=== PATIENT | male | born 1970 | race American Indian/Alaskan Native ===

== ENCOUNTER 2017-04-21 15:31 | Inpatient (IN) | payer MEDICARE, MEDICAID ==
[2017-04-21] MEDS ORDERED: Vancomycin 1gm in NS 250ml 1 GM/250 ML BAG IVPB STA (15:52)
--- NOTE | 2017-04-21 15:52 | ED PDOC ---
Arrival/HPI - General Time Seen by Provider: 04/21/17 15:32 Historian: Custodial - History of Present Illness Narrative History of Present Illness (Text): 04/21/17 15:47 A 46 year old male, whose past medical history includes, diabetes, hypertension , asthma, COPD, lupus and depression, brought into the emergency department by EMS from [facility] for altered mental status. As per shelter report, patient had a fever of 102.7, 131 pulse and 75-86% oxygen saturation. Patient is lethargic on exam. He responds to verbal stimuli and answers yes/no to limited questions. Patient with generalized pain, shortness of breath and cough. HPI and ROS limited. PMD: Dr. Hester Time/Duration: Prior to Arrival Context: Home (shelter) Past Medical History - Provider Review Nursing Documentation Reviewed: Yes - Infectious Disease Hx of Infectious Diseases: None - Tetanus Immunization Tetanus Immunization: Unknown - Past Medical History Past Medical History: Unable to Obtain - Cardiac Hx Cardiac Disorders: No - Pulmonary Hx Asthma: Yes - Neurological Other/Comment: SLE - HEENT Hx HEENT Disorder: No - Renal Hx Renal Disorder: No - Endocrine/Metabolic Hx Diabetes Insipidus: Yes Other/Comment: lupus - Hematological/Oncological Hx Blood Disorders: No Hx Sickle Cell Disease: No - Integumentary Hx Dermatological Disorder: No - Musculoskeletal/Rheumatological Hx Falls: No - Gastrointestinal Hx Gastrointestinal Disorders: No - Genitourinary/Gynecological Hx Genitourinary Disorders: No - Psychiatric Hx Depression: Yes Hx Substance Use: Yes Other/Comment: drug abuse - Past Surgical History Past Surgical History: Unable to Obtain - Surgical History Hx Appendectomy: No Hx Cholecystectomy: No Hx Coronary Stent: No - Anesthesia Hx Anesthesia Reactions: No Hx Malignant Hyperthermia: No - Suicidal Assessment Feels Threatened In Home Enviroment: No Family/Social History - Physician Review Nursing Documentation Reviewed: Yes Family/Social History: No Known Family HX Smoking Status: Former Smoker Hx Alcohol Use: Yes Hx Substance Use: Yes Allergies/Home Meds Allergies/Adverse Reactions: Allergies penicillin V Adverse Reaction (Verified 04/21/17 15:51) ANAPHYLAXIS Home Medications: Home Meds Medication Instructions Recorded Confirmed Advair Diskus 500/50 1 puff IH BID 07/24/14 07/24/14 Alprazolam [Xanax] 0.25 mg PO HS PRN 07/24/14 07/24/14 Celecoxib [Celebrex] 400 mg PO BID 07/24/14 07/24/14 Enoxaparin [Lovenox] 40 mg IJ DAILY 07/24/14 07/24/14 Magnesium Hydroxide [Milk Of 30 ml PO DAILY PRN 07/24/14 07/24/14 Magnesia] Melatonin 5 mg PO HS 07/24/14 07/24/14 Methadone 90 mg PO DAILY 07/24/14 07/24/14 Omeprazole [PrilOSEC] 40 mg PO DAILY 07/24/14 07/24/14 Ondansetron ODT [Zofran ODT] 4 mg PO Q6 PRN 07/24/14 07/24/14 Polyethylene Glycol 3350 [Miralax] 17 gm PO HS 07/24/14 07/24/14 amLODIPine [Norvasc] 10 mg PO DAILY 07/24/14 07/24/14 Aztreonam 1 Gm in NS 100mL 1 gm IVPB Q8 07/30/14 07/30/14 [Azactam 1 gm] Review of Systems - Review of Systems Systems not reviewed;Unavailable: Altered Mental Status Physical Exam Vital Signs Reviewed: Yes Vital Signs Temp Pulse Resp BP Pulse Ox 04/21/17 18:04 100.9 F H 110 H 16 111/65 97 04/21/17 16:49 103 F H 04/21/17 16:29 112 H 18 109/65 97 04/21/17 15:57 103 F H 116 H 20 112/76 89 L Temperature: Febrile Blood Pressure: Normal Pulse: Tachycardic Respiratory Rate: Normal Appearance: Positive for: Ill-Appearing Mental Status: Positive for: Lethargic, other (Drowsy but arousbale to verbal stimuli. Able to answer limited questions.) - Systems Exam Head: Present: Atraumatic, Normocephalic Pupils: Present: PERRL Extroacular Muscles: Present: EOMI Conjunctiva: Present: Normal Neck: Present: Normal Range of Motion Respiratory/Chest: Present: Good Air Exchange, Rhonchi (Right lower lung field) , Tachypneic. No: Respiratory Distress, Accessory Muscle Use Cardiovascular: Present: Normal S1, S2, Tachycardic. No: Murmurs Abdomen: Present: Normal Bowel Sounds. No: Tenderness, Distention, Peritoneal Signs Upper Extremity: Present: Normal Inspection. No: Cyanosis, Edema Lower Extremity: Present: Normal Inspection. No: Edema Neurological: Present: CN II-XII Intact, Motor Func Grossly Intact, Normal Sensory Function Skin: Present: Warm, Dry, Normal Color. No: Rashes Psychiatric: Present: Lethargic, Other (Drowsy but arousbale to verbal stimuli. Able to answer limited questions.) Medical Decision Making ED Course and Treatment: 04/21/17 15:47 Impression: A 46 year old male brought in for altered mental status Differential Diagnosis included but are not limited to: Altered Mental Status, Respiratory Distress due to PNA/COPD Plan: -- Chest xray -- EKG -- Labs -- Blood and Urine culture -- Urinalysis -- Rapid flu -- Duoneb, Dextrose, Solumedrol, Levaquin, Meropenum and Vancomycin -- Reassess and disposition Progress Notes: EKG shows sinus tachycardia at [address]-segment elevations. Interpreted by me. Report Date : 04/21/2017 16:30:07 Procedure: Chest xray Dictator : Romeo Smith MD IMPRESSION: Extensive right lower lobe infiltrate/mass/ consolidation. Findings in a similar anatomic distribution (on the prior study a smaller more discrete) identified previously. This either represents a chronic or recurrent process. 04/21/17 16:50 Digital Composer paged. Awaiting call back. 04/21/17 16:[address] Plata, states he evaluate patient at bedside. 04/21/17 17:[address] Plata, who agrees with BiPAP and states to admit to the ICU. Requests head CT and he will f/u results. 04/21/17 17:[address] Hester, who agrees with plan. Requests ID Dr. Moffett and respiratory Dr. Guillen for consult. - Critical Care Critical Care Minutes: 60 minutes - Lab Interpretations Lab Results: 04/21/17 16:05 04/21/17 16:05 Lab Results 04/21/17 16:05: Sodium 143, Chloride 102, Potassium 4.2, Carbon Dioxide 34 H, Anion Gap 12, BUN 24 H, Creatinine 1.2, Est GFR ( Amer) > 60, Est GFR ( Non-Af Amer) > 60, Random Glucose 75, Calcium 8.9, Phosphorus 2.9, Magnesium 1.6 L, Total Bilirubin 0.5, AST 31, ALT 35, Alkaline Phosphatase 53, Troponin I < 0.01, NT-Pro-B Natriuret Pep 81.4, Total Protein 7.6, Albumin 3.7, Globulin 3.9, Albumin/Globulin Ratio 1.0 L 04/21/17 16:05: pO2 78 H, VBG pH 7.31 L, VBG pCO2 70.0 H*, VBG HCO3 35.2 H, VBG Total CO2 37.3 H, VBG O2 Sat (Calc) 95.2 H, VBG Base Excess 6.4 H, VBG Potassium 4.1, Sodium 140.0, Chloride 103.0, Glucose 74 L, Lactate 1.1, FiO2 21.0, Venous Blood Potassium 4.1 04/21/17 16:05: PT 14.3 H, INR 1.25 H, APTT 30.9 04/21/17 16:05: WBC 18.7 H, RBC 4.76, Hgb 14.6, Hct 46.0, MCV 96.6, MCH 30.7, MCHC 31.7, RDW 15.7 H, Plt Count 148, MPV 12.3 H, Gran % 81.1 H, Lymph % (Auto) 10.0 L, [place] % (Auto) 8.2 H, Eos % (Auto) 0.6 L, Baso % (Auto) 0.1, Gran # 15.19 H, Lymph # (Auto) 1.9, [place] # (Auto) 1.5 H, Eos # (Auto) 0.1, Baso # (Auto ) 0.01 04/21/17 15:48: POC Glucose (mg/dL) 63 L - RAD Interpretation Radiology Orders: 04/21/17 15:52 CHEST PORTABLE [RAD] Stat - Medication Orders Current Medication Orders: Albuterol/Ipratropium (Duoneb 3 Mg/0.5 Mg (3 Ml) Ud) 3 ml IH Q2H PRN PRN Reason: Shortness of Breath Albuterol/Ipratropium (Duoneb 3 Mg/0.5 Mg (3 Ml) Ud) 3 ml IH [id number] BLADE Alprazolam (Xanax) 0.25 mg PO HS PRN; Protocol PRN Reason: Anxiety Stop: 04/28/17 17:28 Arformoterol Tartrate (Brovana) 15 mcg IH [id number] BLADE Aspirin (Aspirin Chewable) 81 mg PO DAILY BLADE Atorvastatin Calcium (Lipitor) 40 mg PO DIN BLADE Docusate Sodium (Colace) 100 mg PO TID BLADE Heparin Sodium (Porcine) (Heparin) 5,000 units SC Q8 BLADE PRN Reason: Protocol Meropenem (Merrem Iv 1 Gm Premix) 50 mls @ 100 mls/hr IVPB STAT BLADE PRN Reason: Protocol Doxycycline Hyclate 100 mg/ (Sodium Chloride) 100 mls @ 100 mls/hr IVPB Q12 BLADE PRN Reason: Protocol Stop: 04/28/17 22:01 Meropenem 500 mg/ Sodium (Chloride) 50 mls @ 100 mls/hr IVPB Q8 BLADE PRN Reason: Protocol Stop: 04/22/17 06:29 Vancomycin HCl (Vancomycin 500mg In Ns) 500 mg in 100 mls @ 200 mls/hr IVPB Q12 BLADE PRN Reason: Protocol Magnesium Sulfate 2 gm/ Sodium (Chloride) 104 mls @ 102 mls/hr IV ONCE ONE Stop: 04/21/17 18:24 Methylprednisolone (Solu-Medrol) 40 mg IVP Q8 BLADE Montelukast Sodium (Singulair) 10 mg PO HS [facility] Nicotine (Nicoderm Cq) 1 patch TD DAILY [facility] Pantoprazole Sodium (Protonix Inj) 40 mg IVP DAILY [facility] Discontinued Medications Acetaminophen (Tylenol 325mg Tab) 975 mg PO STAT STA Stop: 04/21/17 16:21 Last Admin: 04/21/17 16:49 Dose: 975 mg MAR Pain/Vitals Document 04/21/17 16:49 MS (Rec: 04/21/17 16:49 MS [id number]) Pain Reassessment Is This A Pain ReAssessment? No Sleep Is patient sleeping during reassessment? No Presence of Pain Presence of Pain No Vitals Temperature (97.6 F-99.6 F) 103 F Temperature Source Rectal Albuterol/Ipratropium (Duoneb 3 Mg/0.5 Mg (3 Ml) Ud) 3 ml IH Q15M BLADE Stop: 04/21/17 16:31 Last Admin: 04/21/17 16:20 Dose: 3 ml Dextrose (Dextrose 50% Inj) 50 ml IVP STAT STA Stop: 04/21/17 15:56 Last Admin: 04/21/17 16:18 Dose: 50 ml IVP Administration Document 04/21/17 16:18 GABRIELMeg (Rec: 04/21/17 16:18 [email or web address] Charges for Administration # of IVP Administrations 1 Vancomycin HCl (Vancomycin 1gm) 1 gm in 250 mls @ 167 mls/hr IVPB STAT STA PRN Reason: Protocol Stop: 04/21/17 17:21 Last Admin: 04/21/17 16:38 Dose: 167 mls/hr eMAR Start Stop Document 04/21/17 16:38 JAVIER (Rec: 04/21/17 16:39 [email or web address]) Intravenous Solution Start Date 04/21/17 Start Time 16:38 End Date 04/21/17 End time 18:10 Total Infusion Time 92 Levofloxacin/Dextrose (Levaquin 750mg) 750 mg in 150 mls @ 100 mls/hr IVPB STAT STA PRN Reason: Protocol Stop: 04/21/17 18:16 Methylprednisolone (Solu-Medrol) 125 mg IVP STAT STA Stop: 04/21/17 15:56 Last Admin: 04/21/17 16:19 Dose: 125 mg IVP Administration Document 04/21/17 16:19 JAVIER (Rec: 04/21/17 16:19 [facility]) Charges for Administration # of IVP Administrations 1 - Scribe Statement The provider has reviewed the documentation as recorded by the Olivia Canada Provider Scribe Attestation: All medical record entries made by the Scribe were at my direction and personally dictated by me. I have reviewed the chart and agree that the record accurately reflects my personal performance of the history, physical exam, medical decision making, and the department course for this patient. I have also personally directed, reviewed, and agree with the discharge instructions and disposition. Disposition/Present on Arrival - Present on Arrival Any Indicators Present on Arrival: No History of DVT/PE: No History of Uncontrolled Diabetes: No Urinary Catheter: No History Surgical Site Infection Following: None - Disposition Have Diagnosis and Disposition been Completed?: Yes Diagnosis: Pneumonia, Hypercapnia, Altered mental status Disposition: HOSPITALIZED Disposition Time: 17:11 Patient Plan: ICU Patient Problems: Current Active Problems Problem Status Onset Altered mental status Acute Hypercapnia Acute Pneumonia Acute Condition: CRITICAL
[2017-04-21] MEDS ORDERED: Dextrose 50% SYRINGE Inj (50 ml) IVP STA (15:55)
[2017-04-21] MEDS: Albuterol-Ipratrop 3 mg / 0.5 (3 ml) UD IH SCH ×4 (16:00→20:00)
[2017-04-21 16:24] LABS: VENOUS BLOOD GAS BASE EXCESS 6.4 mmol/L (0.0-2.0); VENOUS BLOOD GAS PO2 78 mm/Hg (30-55); VENOUS BLOOD PH 7.31 (7.32-7.43)
[2017-04-21 16:26] LABS: BASO # 0.01 K/mm3 (0.0-2.0); BASO % 0.1 % (0.0-3.0); EOS # 0.1 (0.0-0.7); EOS % 0.6 % (1.5-5.0); GRAN # 15.19 (1.4-6.5); GRAN % 81.1 % (50.0-68.0); HEMOGLOBIN 14.6 g/dL (14.0-18.0); LYMPH # 1.9 (1.2-3.4); MEAN CELL VOLUME 96.6 fl (80.0-105.0); MEAN CORPUSCULAR HEMOGLOBIN 30.7 pg (25.0-35.0); MEAN CORPUSCULAR HGB CONC 31.7 g/dl (31.0-37.0); MEAN PLATELET VOLUME 12.3 fl (7.0-11.0); MONO # 1.5 (0.1-0.6); MONO % 8.2 % (1.0-6.0); RBC 4.76 10^6/uL (3.5-6.1); RED CELL DISTRIBUTION WIDTH 15.7 % (11.5-14.5); WHITE BLOOD COUNT 18.7 10^3/ul (4.5-11.0)
--- NOTE | 2017-04-21 16:31 | RAD ---
HISTORY: Sepsis Patient COMPARISON: 12/17/2014 single-view chest. 01/14/2015 CT thorax FINDINGS: LUNGS: Consolidative changes or other recurrent or chronic in the right lower lobe. The area of airspace disease has increased compared to the prior study. PLEURA: No significant pleural effusion identified, no pneumothorax apparent. CARDIOVASCULAR: Normal. OSSEOUS STRUCTURES: No significant abnormalities. VISUALIZED UPPER ABDOMEN: Normal. OTHER FINDINGS: None. IMPRESSION: Extensive right lower lobe infiltrate/mass/ consolidation. Findings in a similar anatomic distribution (on the prior study a smaller more discrete) identified previously. This either represents a chronic or recurrent process.
[2017-04-21 16:35] LABS: ALBUMIN 3.7 g/dL (3.0-4.8); ALT/SGPT 35 U/L (7-56); AST/SGOT 31 U/L (17-59); BLOOD UREA NITROGEN 24 mg/dL (7-21); CALCIUM 8.9 mg/dL (8.4-10.5); GFR AFRICAN-AMERICAN > 60; GFR NON-AFRICAN AMERICAN > 60
[2017-04-21 16:36] LABS: INR 1.25 (0.93-1.08); PARTIAL THROMBOPLASTIN TIME 30.9 Seconds (25.1-36.5); PROTHROMBIN TIME 14.3 SECONDS (9.4-12.5)
[2017-04-21] MEDS ORDERED: levoFLOXacin 750 mg in D5W 750 MG/150 ML BAG IVPB STA (16:47)
[2017-04-21 16:48] LABS: B-TYPE NATRIURETIC PEPTIDE 81.4 pg/mL (0-450); TROPONIN I < 0.01 ng/mL
[2017-04-21] MEDS ORDERED: Meropenem IV 1 gm in NS 50 ML IVPB SCH (17:00)
[2017-04-21] MEDS ORDERED: Albuterol-Ipratrop 3 mg / 0.5 (3 ml) UD IH PRN (17:15)
--- NOTE | 2017-04-21 17:21 | CP.PCM.CON ---
History of Present Illness - History of Present Illness History of Present Illness: CRITICAL CARE CONSULT NOTE HPI Patient is 46yo male with PMhx of DM, HTN, Lupus, Asthma/COPD, active smoker, depression, brought into the ER from [facility] for AMS, fever 102.7, tachycardia, and hypoxia, o2 sat 75%. Pt cannot provide any history, follows simple commands, somnolent. As per the ER patient was in resp distress, will be placed on BIPAP. No other constitutional symptoms. PMHx as above PSHX as above Meds as per EMR ROS as above FHx NC Social active smoker, lives in [place], denies drug use Review of Systems - Review of Systems Review of Systems: as per HPI Past Patient History - Infectious Disease Hx of Infectious Diseases: None - Tetanus Immunizations Tetanus Immunization: Unknown - Past Medical History & Family History Past Medical History?: Yes - Past Social History Smoking Status: Former Smoker - CARDIAC Hx Cardiac Disorders: No - PULMONARY Hx Asthma: Yes - NEUROLOGICAL Other/Comment: SLE - HEENT Hx HEENT Problems: No - RENAL Hx Chronic Kidney Disease: No - ENDOCRINE/METABOLIC Hx Diabetes Insipidus: Yes Other/Comment: lupus - HEMATOLOGICAL/ONCOLOGICAL Hx Blood Disorders: No Hx Sickle Cell Disease: No - INTEGUMENTARY Hx Dermatological Problems: No - MUSCULOSKELETAL/RHEUMATOLOGICAL Hx Falls: No - GASTROINTESTINAL Hx Gastrointestinal Disorders: No - GENITOURINARY/GYNECOLOGICAL Hx Genitourinary Disorders: No - PSYCHIATRIC Hx Depression: Yes Hx Substance Use: Yes Other/Comment: drug abuse - SURGICAL HISTORY Hx Appendectomy: No Hx Cholecystectomy: No Hx Coronary Stent: No - ANESTHESIA Hx Anesthesia Reactions: No Hx Malignant Hyperthermia: No Meds Allergies/Adverse Reactions: Allergies Allergy/AdvReac Type Severity Reaction Status Date / Time penicillin V AdvReac ANAPHYLAXIS Verified 04/21/17 15:51 - Medications Medications: Current Medications Vancomycin HCl (Vancomycin 1gm) 1 gm in 250 mls @ 167 mls/hr IVPB STAT STA PRN Reason: Protocol Stop: 04/21/17 17:21 Last Admin: 04/21/17 16:38 Dose: 167 mls/hr Levofloxacin/Dextrose (Levaquin 750mg) 750 mg in 150 mls @ 100 mls/hr IVPB STAT STA PRN Reason: Protocol Stop: 04/21/17 18:16 Meropenem (Merrem Iv 1 Gm Premix) 50 mls @ 100 mls/hr IVPB STAT BLADE PRN Reason: Protocol Physical Exam - Constitutional Appears: No Acute Distress, Confused, Chronically Ill - Head Exam Head Exam: NORMAL INSPECTION - Eye Exam Eye Exam: Normal appearance - ENT Exam ENT Exam: Mucous Membranes Dry - Neck Exam Neck exam: Positive for: Full Rom - Respiratory Exam Respiratory Exam: Decreased Breath Sounds, Wheezes, Respiratory Distress - Cardiovascular Exam Cardiovascular Exam: Tachycardia, REGULAR RHYTHM, +S1, +S2 - GI/Abdominal Exam GI & Abdominal Exam: Normal Bowel Sounds, Soft - Extremities Exam Extremities exam: Positive for: normal inspection - Neurological Exam Neurological exam: Altered Results - Vital Signs Recent Vital Signs: Last Vital Signs Temp 103 F H 04/21/17 16:49 Pulse 112 H 04/21/17 16:29 Resp 18 04/21/17 16:29 BP 109/65 04/21/17 16:29 Pulse Ox 97 04/21/17 16:29 - Labs Result Diagrams: 04/21/17 16:05 04/21/17 16:05 Labs: Laboratory Results - last 24 hr 04/21/17 04/21/17 04/21/17 15:48 16:05 16:05 WBC 18.7 H RBC 4.76 Hgb 14.6 Hct 46.0 MCV 96.6 MCH 30.7 MCHC 31.7 RDW 15.7 H Plt Count 148 MPV 12.3 H Gran % 81.1 H Lymph % (Auto) 10.0 L [place] % (Auto) 8.2 H Eos % (Auto) 0.6 L Baso % (Auto) 0.1 Gran # 15.19 H Lymph # (Auto) 1.9 [place] # (Auto) 1.5 H Eos # (Auto) 0.1 Baso # (Auto) 0.01 PT 14.3 H INR 1.25 H APTT 30.9 pO2 VBG pH VBG pCO2 VBG HCO3 VBG Total CO2 VBG O2 Sat (Calc) VBG Base Excess VBG Potassium Sodium Chloride Glucose Lactate FiO2 Potassium Carbon Dioxide Anion Gap BUN Creatinine Est GFR ( Amer) Est GFR (Non-Af Amer) POC Glucose (mg/dL) 63 L Random Glucose Calcium Phosphorus Magnesium Total Bilirubin AST ALT Alkaline Phosphatase Troponin I NT-Pro-B Natriuret Pep Total Protein Albumin Globulin Albumin/Globulin Ratio Venous Blood Potassium 04/21/17 04/21/17 16:05 16:05 WBC RBC Hgb Hct MCV MCH MCHC RDW Plt Count MPV Gran % Lymph % (Auto) [place] % (Auto) Eos % (Auto) Baso % (Auto) Gran # Lymph # (Auto) [place] # (Auto) Eos # (Auto) Baso # (Auto) PT INR APTT pO2 78 H VBG pH 7.31 L VBG pCO2 70.0 H* VBG HCO3 35.2 H VBG Total CO2 37.3 H VBG O2 Sat (Calc) 95.2 H VBG Base Excess 6.4 H VBG Potassium 4.1 Sodium 140.0 143 Chloride 103.0 102 Glucose 74 L Lactate 1.1 FiO2 21.0 Potassium 4.2 Carbon Dioxide 34 H Anion Gap 12 BUN 24 H Creatinine 1.2 Est GFR ( Amer) > 60 Est GFR (Non-Af Amer) > 60 POC Glucose (mg/dL) Random Glucose 75 Calcium 8.9 Phosphorus 2.9 Magnesium 1.6 L Total Bilirubin 0.5 AST 31 ALT 35 Alkaline Phosphatase 53 Troponin I < 0.01 NT-Pro-B Natriuret Pep 81.4 Total Protein 7.6 Albumin 3.7 Globulin 3.9 Albumin/Globulin Ratio 1.0 L Venous Blood Potassium 4.1 - Imaging and Cardiology Chest x-ray Status: Image reviewed by me Assessment & Plan - Assessment and Plan (Free Text) Assessment: 46yo male a.w AMS, severe sepsis, PNA AMS Hypercapnic resp failure PNA Lupus HTN COPD exacerbation - currently febrile, HD stable, somnolent, sat 92% on nebulizer treament, BIPAP to be put on - Labs with leukocytosis, acute on chronic hypercapnia resp acidosis, CXR with RLL consolidation Recommend: - BIPAP 12/5/100%, titrate FiO2 to goal sat 90%, repeat ABG to ensure no worsening CO2 retention - IV steroids Solumedrol 40mg q8hr, DUoenbs q4hr - monitor resp status closely, low threshold for intubation - broad spectrum abx, Vanco, Merrem, Doxycycline, check Procal, UCx, BCx, Sputum culture - ID consult - monitor HH - IVF hydration - check lactate - hold BP meds - ECHO - CT head - NPO - PT eval - GI ppx - DVT ppx - Admit to MICU, critical Critical care time 40 minutes
[2017-04-21] MEDS ORDERED: Magnesium Sulfate 2 GM in Sodium Chloride 0.9% 100 ML IV ONE (17:23)
--- NOTE | 2017-04-21 18:15 | CT ---
PROCEDURE: CT HEAD WITHOUT CONTRAST. HISTORY: Altered mental status COMPARISON: None available. TECHNIQUE: Axial computed tomography images were obtained through the head/brain without intravenous contrast. Radiation dose: Total exam DLP = 904.49 mGy-cm. This CT exam was performed using one or more of the following dose reduction techniques: Automated exposure control, adjustment of the mA and/or kV according to patient size, and/or use of iterative reconstruction technique. FINDINGS: HEMORRHAGE: No intracranial hemorrhage. BRAIN: Christy-white matter differentiation is preserved. There is no mass, mass effect or abnormal extra-axial fluid collection. VENTRICLES: The ventricles are normal in size, shape and configuration. CALVARIUM: There is no calvarial fracture or extracranial soft tissue swelling. PARANASAL SINUSES: There is abnormal soft-tissue completely opacifying the left frontal sinus and both maxillary sinuses. The sphenoid sinus, right frontal sinus and ethmoid air cells are predominantly clear. MASTOID AIR CELLS: Predominantly clear. OTHER FINDINGS: None. IMPRESSION: No acute intracranial abnormality. Severe chronic left frontal and bilateral maxillary sinusitis.
[2017-04-21] MEDS: Arformoterol 15 mcg/2 ml Inh Sol IH SCH (20:00)
[2017-04-21 21:28] LABS: ARTERIAL BLOOD GAS HCO3 35.2 mmol/L (21-28); ARTERIAL BLOOD GAS HEMOGLOBIN 14.6 g/dL (11.7-17.4); ARTERIAL BLOOD GAS O2 CAPACITY 19.9 mL/dl (16-24); ARTERIAL BLOOD GAS O2 SAT 95.4 % (95-98); ARTERIAL BLOOD GAS PH 7.28 (7.35-7.45); ARTERIAL BLOOD GAS TCO2 37.5 mmol.L (22-28)
[2017-04-21 21:30] LABS: ARTERIAL BLOOD GAS PCO2 75 mm/Hg (35-45)
[2017-04-21] MEDS: Vancomycin 500mg in NS 500 MG/100 ML BAG IVPB SCH (21:42)
[2017-04-21] MEDS: MethylPREDNISolone 40 mg Vial IVP SCH (21:44)
[2017-04-21] MEDS ORDERED: Meropenem 500 MG in Sodium Chloride 0.9% 50 ML IVPB SCH (22:00)
[2017-04-22] MEDS: Albuterol-Ipratrop 3 mg / 0.5 (3 ml) UD IH SCH ×7 (00:15→23:30)
[2017-04-22 01:12] VITALS: BMI 37.0
[2017-04-22] MEDS: MethylPREDNISolone 40 mg Vial IVP SCH ×3 (05:23→21:37)
[2017-04-22 06:51] LABS: BASO # 0.01 K/mm3 (0.0-2.0); GRAN # 22.78 (1.4-6.5); GRAN % 91.6 % (50.0-68.0); HEMOGLOBIN 14.1 g/dL (14.0-18.0); LYMPH # 1.2 (1.2-3.4); LYMPH % 4.6 % (22.0-35.0); MEAN CELL VOLUME 96.5 fl (80.0-105.0); MEAN CORPUSCULAR HEMOGLOBIN 30.5 pg (25.0-35.0); MEAN CORPUSCULAR HGB CONC 31.5 g/dl (31.0-37.0); MONO # 0.9 (0.1-0.6); MONO % 3.8 % (1.0-6.0); PLATELET COUNT 84 10^3/uL (120.0-450.0); RBC 4.63 10^6/uL (3.5-6.1); RED CELL DISTRIBUTION WIDTH 16.1 % (11.5-14.5); WHITE BLOOD COUNT 24.9 10^3/ul (4.5-11.0)
[2017-04-22] MEDS ORDERED: Meropenem 500 MG in Sodium Chloride 0.9% 50 ML IVPB SCH (07:00)
[2017-04-22 07:15] LABS: ALB/GLOB RATIO 0.9 (1.1-1.8); ALBUMIN 3.5 g/dL (3.0-4.8); ALT/SGPT 32 U/L (7-56); AST/SGOT 29 U/L (17-59); BLOOD UREA NITROGEN 23 mg/dL (7-21); CALCIUM 9.2 mg/dL (8.4-10.5); GFR AFRICAN-AMERICAN > 60; GFR NON-AFRICAN AMERICAN > 60
[2017-04-22] MEDS: Arformoterol 15 mcg/2 ml Inh Sol IH SCH ×2 (07:26→20:59)
--- NOTE | 2017-04-22 07:29 | CP.CCUPN ---
<MalaikaDebra - Last Filed: 04/22/17 09:17> CCU Subjective - Physician Review Subjective (Free Text): 04/22/17 07:25 Patient sent from long-term yesterday due to tachycardia, fever, and was found to have pneumonia, was hypercapneic thus patient was placed on bipap and admitted to ICU for monitoring and management. As per night nurse, patient didn't void since being in the ICU. Patient refused abarca insertion. Patient is also refusing ABG this morning, asking to see Dr. Kacie hurtado. CCU Objective - Vital Signs / Intake & Output Vital Signs (Last 4 hours): On Bipap 07/28/15/40%. O2 sat 98% bp 101/72 rr: 16 hh 58 Intake and Output (Last 8hrs): Intake & Output 04/21/17 04/22/17 04/22/17 22:59 06:59 14:59 Intake Total 100 Output Total 0 Balance 100 Weight 244 lb Intake: IV 100 Right Hand 100 Oral 0 Output: Urine 0 Urine, Voided 0 Stool 0 Other: # Bowel Movements 3 - Physical Exam Head: Positive for: Atraumatic, Normocephalic Pupils: Positive for: PERRL Extroacular Muscles: Positive for: EOMI Conjunctiva: Positive for: Normal Neck: Positive for: Normal Range of Motion Respiratory/Chest: Positive for: Good Air Exchange, Rhonchi (Right lower lung field). Negative for: Respiratory Distress, Accessory Muscle Use, Wheezes, Decreased Breath Sounds, Rales, Retracting, Tachypneic Cardiovascular: Positive for: Normal S1, S2, Tachycardic. Negative for: Murmurs Abdomen: Positive for: Tenderness (trell lower quadrants. ), Distention (obese abdomen), Normal Bowel Sounds. Negative for: Peritoneal Signs Upper Extremity: Positive for: Normal Inspection, Edema (+2), Tenderness, Erythema. Negative for: Cyanosis Lower Extremity: Positive for: Normal Inspection. Negative for: Edema Neurological: Positive for: CN II-XII Intact, Motor Func Grossly Intact, Normal Sensory Function Skin: Positive for: Warm, Dry, Normal Color. Negative for: Rashes Psychiatric: Positive for: Lethargic, Other (Drowsy but arousbale to verbal stimuli. Able to answer limited questions.) - Medications Active Medications: Active Medications Generic Name Dose Route Start Last Admin Trade Name Freq PRN Reason Stop Dose Admin Acetaminophen 650 mg 04/22/17 06:54 Tylenol 325mg Tab PO Q6H PRN Fever >100.4 F Albuterol/Ipratropium 3 ml 04/21/17 17:15 Duoneb 3 Mg/0.5 Mg (3 Ml) Ud IH Q2H PRN Shortness of Breath Albuterol/Ipratropium 3 ml 04/21/17 19:30 04/22/17 04:26 Duoneb 3 Mg/0.5 Mg (3 Ml) Ud IH 3 ml [id number] BLADE Administration Alprazolam 0.25 mg 04/21/17 17:27 Xanax PO 04/28/17 17:28 HS PRN Anxiety Protocol Arformoterol Tartrate 15 mcg 04/21/17 20:00 04/21/17 20:00 Brovana IH 15 mcg [id number] BLADE Administration Aspirin 81 mg 04/22/17 10:00 Aspirin Chewable PO DAILY [facility] Atorvastatin Calcium 40 mg 04/22/17 17:00 Lipitor PO DIN BLADE Docusate Sodium 100 mg 04/21/17 18:00 04/21/17 19:37 Colace PO Not Given TID BLADE Heparin Sodium (Porcine) 5,000 units 04/21/17 22:00 04/22/17 05:22 Heparin SC 5,000 units Q8 BLADE Administration Protocol Meropenem 50 mls @ 100 mls/hr 04/21/17 17:00 04/21/17 19:13 Merrem Iv 1 Gm Premix IVPB 100 mls/hr STAT BLADE Administration Protocol Doxycycline Hyclate 100 mg/ 100 mls @ 100 mls/hr 04/21/17 22:00 04/21/17 21: 44 Sodium Chloride IVPB 04/28/17 22:01 100 mls/hr Q12 BLADE Administration Protocol Vancomycin HCl 500 mg in 100 mls @ 200 mls/hr 04/21/17 22:00 04/21/17 21:42 Vancomycin 500mg In Ns IVPB 200 mls/hr Q12 BLADE Administration Protocol Meropenem 500 mg/ Sodium 50 mls @ 100 mls/hr 04/22/17 07:00 Chloride IVPB 04/22/17 07:29 Q12H BLADE Protocol Methylprednisolone 40 mg 04/21/17 22:00 04/22/17 05:23 Solu-Medrol IVP 40 mg Q8 BLADE Administration Montelukast Sodium 10 mg 04/21/17 22:00 04/21/17 21:44 Singulair PO 10 mg HS BLADE Administration Nicotine 1 patch 04/21/17 17:30 04/21/17 20:34 Nicoderm Cq TD 1 patch DAILY BLADE Administration Pantoprazole Sodium 40 mg 04/22/17 10:00 Protonix Inj IVP DAILY BLADE - Patient Studies Lab Studies: Lab Studies 04/22/17 04/22/17 04/22/17 Range/Units 05:45 05:45 05:28 pCO2 (35-45) mm/Hg pO2 (80-100) mm/Hg HCO3 (21-28) mmol/L ABG pH (7.35-7.45) ABG Total CO2 (22-28) mmol.L ABG O2 Saturation (95-98) % ABG O2 Content (15-23) ML/dl ABG Base Excess (-2.0-3.0) mmol/L ABG Hemoglobin (11.7-17.4) g/dL ABG Carboxyhemoglobin (0.5-1.5) % POC ABG HHb (Measured) (0-5) % ABG Methemoglobin (0.0-3.0) % ABG O2 Capacity (16-24) mL/dl Hgb O2 Saturation (95.0-98.0) % FiO2 % Sodium 144 (132-148) mmol/L Potassium 4.9 (3.6-5.0) mmol/L Chloride 104 (98-107) mmol/L Carbon Dioxide 31 (21-33) mmol/L Anion Gap 14 (10-20) BUN 23 H (7-21) mg/dL Creatinine 0.9 (0.8-1.5) mg/dl Est GFR ( Amer) > 60 Est GFR (Non-Af Amer) > 60 POC Glucose (mg/dL) 106 (65-110) mg/dL Random Glucose 98 (70-110) mg/dL Calcium 9.2 (8.4-10.5) mg/dL Phosphorus 4.6 H (2.5-4.5) mg/dL Magnesium 2.5 H (1.7-2.2) mg/dL Total Bilirubin 0.5 (0.2-1.3) mg/dL AST 29 (17-59) U/L ALT 32 (7-56) U/L Alkaline Phosphatase 49 (38-126) U/L Total Protein 7.4 (5.8-8.3) g/dL Albumin 3.5 (3.0-4.8) g/dL Globulin 3.9 gm/dL Albumin/Globulin Ratio 0.9 L (1.1-1.8) Vancomycin Trough 11.6 H (5.0-10.0) ug/mL HIV-1 Ab Rapid Screen (NON REAC) 04/22/17 04/21/17 04/21/17 Range/Units 00:20 23:16 21:25 pCO2 75 H* (35-45) mm/Hg pO2 82.0 (80-100) mm/Hg HCO3 35.2 H (21-28) mmol/L ABG pH 7.28 L (7.35-7.45) ABG Total CO2 37.5 H (22-28) mmol.L ABG O2 Saturation 95.4 (95-98) % ABG O2 Content 19.0 (15-23) ML/dl ABG Base Excess 5.5 H (-2.0-3.0) mmol/L ABG Hemoglobin 14.6 (11.7-17.4) g/dL ABG Carboxyhemoglobin 2.5 H (0.5-1.5) % POC ABG HHb (Measured) 4.5 (0-5) % ABG Methemoglobin 0.6 (0.0-3.0) % ABG O2 Capacity 19.9 (16-24) mL/dl Hgb O2 Saturation 92.4 L (95.0-98.0) % FiO2 40.0 % Sodium (132-148) mmol/L Potassium (3.6-5.0) mmol/L Chloride (98-107) mmol/L Carbon Dioxide (21-33) mmol/L Anion Gap (10-20) BUN (7-21) mg/dL Creatinine (0.8-1.5) mg/dl Est GFR ( Amer) Est GFR (Non-Af Amer) POC Glucose (mg/dL) 140 H (65-110) mg/dL Random Glucose (70-110) mg/dL Calcium (8.4-10.5) mg/dL Phosphorus (2.5-4.5) mg/dL Magnesium (1.7-2.2) mg/dL Total Bilirubin (0.2-1.3) mg/dL AST (17-59) U/L ALT (7-56) U/L Alkaline Phosphatase (38-126) U/L Total Protein (5.8-8.3) g/dL Albumin (3.0-4.8) g/dL Globulin gm/dL Albumin/Globulin Ratio (1.1-1.8) Vancomycin Trough (5.0-10.0) ug/mL HIV-1 Ab Rapid Screen Non reactive (NON REAC) 04/21/17 Range/Units 18:15 pCO2 (35-45) mm/Hg pO2 (80-100) mm/Hg HCO3 (21-28) mmol/L ABG pH (7.35-7.45) ABG Total CO2 (22-28) mmol.L ABG O2 Saturation (95-98) % ABG O2 Content (15-23) ML/dl ABG Base Excess (-2.0-3.0) mmol/L ABG Hemoglobin (11.7-17.4) g/dL ABG Carboxyhemoglobin (0.5-1.5) % POC ABG HHb (Measured) (0-5) % ABG Methemoglobin (0.0-3.0) % ABG O2 Capacity (16-24) mL/dl Hgb O2 Saturation (95.0-98.0) % FiO2 % Sodium (132-148) mmol/L Potassium (3.6-5.0) mmol/L Chloride (98-107) mmol/L Carbon Dioxide (21-33) mmol/L Anion Gap (10-20) BUN (7-21) mg/dL Creatinine (0.8-1.5) mg/dl Est GFR ( Amer) Est GFR (Non-Af Amer) POC Glucose (mg/dL) 95 (65-110) mg/dL Random Glucose (70-110) mg/dL Calcium (8.4-10.5) mg/dL Phosphorus (2.5-4.5) mg/dL Magnesium (1.7-2.2) mg/dL Total Bilirubin (0.2-1.3) mg/dL AST (17-59) U/L ALT (7-56) U/L Alkaline Phosphatase (38-126) U/L Total Protein (5.8-8.3) g/dL Albumin (3.0-4.8) g/dL Globulin gm/dL Albumin/Globulin Ratio (1.1-1.8) Vancomycin Trough (5.0-10.0) ug/mL HIV-1 Ab Rapid Screen (NON REAC) Laboratory Results - last 24 hr 04/21/17 04/21/17 04/21/17 18:15 21:25 23:16 pCO2 75 H* pO2 82.0 HCO3 35.2 H ABG pH 7.28 L ABG Total CO2 37.5 H ABG O2 Saturation 95.4 ABG O2 Content 19.0 ABG Base Excess 5.5 H ABG Hemoglobin 14.6 ABG Carboxyhemoglobin 2.5 H POC ABG HHb (Measured) 4.5 ABG Methemoglobin 0.6 ABG O2 Capacity 19.9 Hgb O2 Saturation 92.4 L FiO2 40.0 Sodium Potassium Chloride Carbon Dioxide Anion Gap BUN Creatinine Est GFR ( Amer) Est GFR (Non-Af Amer) POC Glucose (mg/dL) 95 140 H Random Glucose Calcium Phosphorus Magnesium Total Bilirubin AST ALT Alkaline Phosphatase Total Protein Albumin Globulin Albumin/Globulin Ratio Vancomycin Trough HIV-1 Ab Rapid Screen 04/22/17 04/22/17 04/22/17 00:20 05:28 05:45 pCO2 pO2 HCO3 ABG pH ABG Total CO2 ABG O2 Saturation ABG O2 Content ABG Base Excess ABG Hemoglobin ABG Carboxyhemoglobin POC ABG HHb (Measured) ABG Methemoglobin ABG O2 Capacity Hgb O2 Saturation FiO2 Sodium 144 Potassium 4.9 Chloride 104 Carbon Dioxide 31 Anion Gap 14 BUN 23 H Creatinine 0.9 Est GFR ( Amer) > 60 Est GFR (Non-Af Amer) > 60 POC Glucose (mg/dL) 106 Random Glucose 98 Calcium 9.2 Phosphorus 4.6 H Magnesium 2.5 H Total Bilirubin 0.5 AST 29 ALT 32 Alkaline Phosphatase 49 Total Protein 7.4 Albumin 3.5 Globulin 3.9 Albumin/Globulin Ratio 0.9 L Vancomycin Trough HIV-1 Ab Rapid Screen Non reactive 04/22/17 05:45 pCO2 pO2 HCO3 ABG pH ABG Total CO2 ABG O2 Saturation ABG O2 Content ABG Base Excess ABG Hemoglobin ABG Carboxyhemoglobin POC ABG HHb (Measured) ABG Methemoglobin ABG O2 Capacity Hgb O2 Saturation FiO2 Sodium Potassium Chloride Carbon Dioxide Anion Gap BUN Creatinine Est GFR ( Amer) Est GFR (Non-Af Amer) POC Glucose (mg/dL) Random Glucose Calcium Phosphorus Magnesium Total Bilirubin AST ALT Alkaline Phosphatase Total Protein Albumin Globulin Albumin/Globulin Ratio Vancomycin Trough 11.6 H HIV-1 Ab Rapid Screen Fingerstick Blood Sugar Results: 98 Results Reviewed to Date: Yes Critical Care Progress Note - Prophylaxis GI Prophylaxis GI: PPI - Prophylaxis DVT Prophylaxis DVT: Heparin SQ - Nutrition Nutrition: Nutrition Category Date Time Status NPO Diet [DIET] Diets 04/21/17 Dinner Ordered Assessment/Plan - Assessment and Plan (Free Text) Assessment: Patient is 46yo male with PMhx of DM, HTN, Lupus, Asthma/COPD, active smoker, depression, brought into the ER from [facility] for AMS, fever 102.7, tachycardia, and hypoxia, o2 sat 75% admitted with hypercapneic and hypoxemic respiratory failure due to HAP and was placed on bipap. Patient has been stable all night. Plan: Neuro: Patient is more alert and awake, speaking in full sentences. Pulm: Hypoxemic and acute on chronic hypercapneic respiratory failure due to HAP , patient was placed on bipap. Patient's respiratory status improved on bipap overnight, ABG reviewed, patient has underlying chronic co2 retention due to copd ( chronic tobacco abuse ). AM chest x-ray with some improvement of the consolidation Will continue solumedrol 40q8., continue bronchodilators. On antibiotics. Cardio: h/o htn- bp has been running on the lower side. Holding bp meds, maintain map above 65. Will resume po lasix. ID: Right lower lobe hospital acquired pneumonia ( long-term). flu negative, urine legionella pending. blood cultures pending on doxy, merrem and vanco ID consulted Renal: Patient with urinary retention, 700 cc of urine on bladder scan, will insert abarca catheter. Monitor I&Os. Endo: stable, will maintain euglycemia. Heme: leukocytosis trended up likely due to solumedrol. h/h stable, will continue to monitor. Plt dropped this am, no signs of bleeding, will discontinue heparin sc. Gi: heart healthy diet. ppi for gi prophylaxis. DVT prophylaxis: mechanical compressive devices. Dispo: Patient's respiratory status is much improved this morning, more alert, and is hemodynamically stable. Will transfer patient to med surg in the afternoon. Patient seen, examined and case discussed with the supervisor stage carpentry. - Date & Time Date: 04/22/17 Time: 09:35 <SaraOlayinka - Last Filed: 04/22/17 09:49> CCU Objective - Vital Signs / Intake & Output Vital Signs (Last 4 hours): Vital Signs Pulse 04/22/17 07:30 63 Intake and Output (Last 8hrs): Intake & Output 04/21/17 04/22/17 04/22/17 22:59 06:59 14:59 Intake Total 100 Output Total 0 Balance 100 Weight 244 lb Intake: IV 100 Right Hand 100 Oral 0 Output: Urine 0 Urine, Voided 0 Stool 0 Other: # Bowel Movements 3 - Medications Active Medications: Active Medications Generic Name Dose Route Start Last Admin Trade Name Freq PRN Reason Stop Dose Admin Acetaminophen 650 mg 04/22/17 06:54 Tylenol 325mg Tab PO Q6H PRN Fever >100.4 F Albuterol/Ipratropium 3 ml 04/21/17 17:15 Duoneb 3 Mg/0.5 Mg (3 Ml) Ud IH Q2H PRN Shortness of Breath Albuterol/Ipratropium 3 ml 04/21/17 19:30 04/22/17 07:26 Duoneb 3 Mg/0.5 Mg (3 Ml) Ud IH 3 ml [id number] BLADE Administration Alprazolam 0.25 mg 04/21/17 17:27 Xanax PO 04/28/17 17:28 HS PRN Anxiety Protocol Arformoterol Tartrate 15 mcg 04/21/17 20:00 04/22/17 07:26 Brovana IH 15 mcg [id number] BLADE Administration Aspirin 81 mg 04/22/17 10:00 Aspirin Chewable PO DAILY BLADE Atorvastatin Calcium 40 mg 04/22/17 17:00 Lipitor PO DIN BLADE Docusate Sodium 100 mg 04/21/17 18:00 04/21/17 19:37 Colace PO Not Given TID BLADE Furosemide 20 mg 04/22/17 10:00 Lasix PO BID BLADE Doxycycline Hyclate 100 mg/ 100 mls @ 100 mls/hr 04/21/17 22:00 04/21/17 21: 44 Sodium Chloride IVPB 04/28/17 22:01 100 mls/hr Q12 BLADE Administration Protocol Vancomycin HCl 500 mg in 100 mls @ 200 mls/hr 04/21/17 22:00 04/21/17 21:42 Vancomycin 500mg In Ns IVPB 200 mls/hr Q12 BLADE Administration Protocol Meropenem 500 mg/ Sodium 50 mls @ 100 mls/hr 04/22/17 14:00 Chloride IVPB 04/22/17 22:29 Q8 BLADE Protocol Methylprednisolone 40 mg 04/21/17 22:00 04/22/17 05:23 Solu-Medrol IVP 40 mg Q8 BLADE Administration Montelukast Sodium 10 mg 04/21/17 22:00 04/21/17 21:44 Singulair PO 10 mg HS BLADE Administration Nicotine 1 patch 04/21/17 17:30 04/21/17 20:34 Nicoderm Cq TD 1 patch DAILY BLADE Administration Pantoprazole Sodium 40 mg 04/22/17 10:00 Protonix Inj IVP DAILY BLADE - Patient Studies Lab Studies: Lab Studies 04/22/17 04/22/17 04/22/17 Range/Units 08:00 05:45 05:45 WBC (4.5-11.0) 10^3/ul RBC (3.5-6.1) 10^6/uL Hgb (14.0-18.0) g/dL Hct (42.0-52.0) % MCV (80.0-105.0) fl MCH (25.0-35.0) pg MCHC (31.0-37.0) g/dl RDW (11.5-14.5) % Plt Count (120.0-450.0) 10^3/uL Gran % (50.0-68.0) % Lymph % (Auto) (22.0-35.0) % [place] % (Auto) (1.0-6.0) % Eos % (Auto) (1.5-5.0) % Baso % (Auto) (0.0-3.0) % Gran # (1.4-6.5) Lymph # (Auto) (1.2-3.4) [place] # (Auto) (0.1-0.6) Eos # (Auto) (0.0-0.7) Baso # (Auto) (0.0-2.0) K/mm3 Neutrophils % (Manual) (50.0-70.0) % Band Neutrophils % (0-2) % Lymphocytes % (Manual) (22.0-35.0) % Monocytes % (Manual) (1.0-6.0) % Platelet Evaluation (NORMAL) Anisocytosis (manual) pCO2 60 H (35-45) mm/Hg pO2 111.0 H (80-100) mm/Hg HCO3 30.9 H (21-28) mmol/L ABG pH 7.32 L (7.35-7.45) ABG Total CO2 32.7 H (22-28) mmol.L ABG O2 Saturation 97.2 (95-98) % ABG O2 Content 18.9 (15-23) ML/dl ABG Base Excess 3.1 H (-2.0-3.0) mmol/L ABG Hemoglobin 13.9 (11.7-17.4) g/dL ABG Carboxyhemoglobin 1.1 (0.5-1.5) % POC ABG HHb (Measured) 2.8 (0-5) % ABG Methemoglobin 0.0 (0.0-3.0) % ABG O2 Capacity 19.4 (16-24) mL/dl Hgb O2 Saturation 96.1 (95.0-98.0) % FiO2 40.0 % Sodium 144 (132-148) mmol/L Potassium 4.9 (3.6-5.0) mmol/L Chloride 104 (98-107) mmol/L Carbon Dioxide 31 (21-33) mmol/L Anion Gap 14 (10-20) BUN 23 H (7-21) mg/dL Creatinine 0.9 (0.8-1.5) mg/dl Est GFR ( Amer) > 60 Est GFR (Non-Af Amer) > 60 POC Glucose (mg/dL) (65-110) mg/dL Random Glucose 98 (70-110) mg/dL Calcium 9.2 (8.4-10.5) mg/dL Phosphorus 4.6 H (2.5-4.5) mg/dL Magnesium 2.5 H (1.7-2.2) mg/dL Total Bilirubin 0.5 (0.2-1.3) mg/dL AST 29 (17-59) U/L ALT 32 (7-56) U/L Alkaline Phosphatase 49 (38-126) U/L Total Protein 7.4 (5.8-8.3) g/dL Albumin 3.5 (3.0-4.8) g/dL Globulin 3.9 gm/dL Albumin/Globulin Ratio 0.9 L (1.1-1.8) Vancomycin Trough 11.6 H (5.0-10.0) ug/mL HIV-1 Ab Rapid Screen (NON REAC) 04/22/17 04/22/17 04/22/17 Range/Units 05:45 05:28 00:20 WBC 24.9 H D (4.5-11.0) 10^3/ul RBC 4.63 (3.5-6.1) 10^6/uL Hgb 14.1 (14.0-18.0) g/dL Hct 44.7 (42.0-52.0) % MCV 96.5 (80.0-105.0) fl MCH 30.5 (25.0-35.0) pg MCHC 31.5 (31.0-37.0) g/dl RDW 16.1 H (11.5-14.5) % Plt Count 84 L (120.0-450.0) 10^3/uL Gran % 91.6 H (50.0-68.0) % Lymph % (Auto) 4.6 L (22.0-35.0) % [place] % (Auto) 3.8 (1.0-6.0) % Eos % (Auto) 0.0 L (1.5-5.0) % Baso % (Auto) 0.0 (0.0-3.0) % Gran # 22.78 H (1.4-6.5) Lymph # (Auto) 1.2 (1.2-3.4) [place] # (Auto) 0.9 H (0.1-0.6) Eos # (Auto) 0.0 (0.0-0.7) Baso # (Auto) 0.01 (0.0-2.0) K/mm3 Neutrophils % (Manual) 90 H (50.0-70.0) % Band Neutrophils % 4 H (0-2) % Lymphocytes % (Manual) 4 L (22.0-35.0) % Monocytes % (Manual) 2 (1.0-6.0) % Platelet Evaluation Low (NORMAL) Anisocytosis (manual) Slight pCO2 (35-45) mm/Hg pO2 (80-100) mm/Hg HCO3 (21-28) mmol/L ABG pH (7.35-7.45) ABG Total CO2 (22-28) mmol.L ABG O2 Saturation (95-98) % ABG O2 Content (15-23) ML/dl ABG Base Excess (-2.0-3.0) mmol/L ABG Hemoglobin (11.7-17.4) g/dL ABG Carboxyhemoglobin (0.5-1.5) % POC ABG HHb (Measured) (0-5) % ABG Methemoglobin (0.0-3.0) % ABG O2 Capacity (16-24) mL/dl Hgb O2 Saturation (95.0-98.0) % FiO2 % Sodium (132-148) mmol/L Potassium (3.6-5.0) mmol/L Chloride (98-107) mmol/L Carbon Dioxide (21-33) mmol/L Anion Gap (10-20) BUN (7-21) mg/dL Creatinine (0.8-1.5) mg/dl Est GFR ( Amer) Est GFR (Non-Af Amer) POC Glucose (mg/dL) 106 (65-110) mg/dL Random Glucose (70-110) mg/dL Calcium (8.4-10.5) mg/dL Phosphorus (2.5-4.5) mg/dL Magnesium (1.7-2.2) mg/dL Total Bilirubin (0.2-1.3) mg/dL AST (17-59) U/L ALT (7-56) U/L Alkaline Phosphatase (38-126) U/L Total Protein (5.8-8.3) g/dL Albumin (3.0-4.8) g/dL Globulin gm/dL Albumin/Globulin Ratio (1.1-1.8) Vancomycin Trough (5.0-10.0) ug/mL HIV-1 Ab Rapid Screen Non reactive (NON REAC) 04/21/17 04/21/17 04/21/17 Range/Units 23:16 21:25 18:15 WBC (4.5-11.0) 10^3/ul RBC (3.5-6.1) 10^6/uL Hgb (14.0-18.0) g/dL Hct (42.0-52.0) % MCV (80.0-105.0) fl MCH (25.0-35.0) pg MCHC (31.0-37.0) g/dl RDW (11.5-14.5) % Plt Count (120.0-450.0) 10^3/uL Gran % (50.0-68.0) % Lymph % (Auto) (22.0-35.0) % [place] % (Auto) (1.0-6.0) % Eos % (Auto) (1.5-5.0) % Baso % (Auto) (0.0-3.0) % Gran # (1.4-6.5) Lymph # (Auto) (1.2-3.4) [place] # (Auto) (0.1-0.6) Eos # (Auto) (0.0-0.7) Baso # (Auto) (0.0-2.0) K/mm3 Neutrophils % (Manual) (50.0-70.0) % Band Neutrophils % (0-2) % Lymphocytes % (Manual) (22.0-35.0) % Monocytes % (Manual) (1.0-6.0) % Platelet Evaluation (NORMAL) Anisocytosis (manual) pCO2 75 H* (35-45) mm/Hg pO2 82.0 (80-100) mm/Hg HCO3 35.2 H (21-28) mmol/L ABG pH 7.28 L (7.35-7.45) ABG Total CO2 37.5 H (22-28) mmol.L ABG O2 Saturation 95.4 (95-98) % ABG O2 Content 19.0 (15-23) ML/dl ABG Base Excess 5.5 H (-2.0-3.0) mmol/L ABG Hemoglobin 14.6 (11.7-17.4) g/dL ABG Carboxyhemoglobin 2.5 H (0.5-1.5) % POC ABG HHb (Measured) 4.5 (0-5) % ABG Methemoglobin 0.6 (0.0-3.0) % ABG O2 Capacity 19.9 (16-24) mL/dl Hgb O2 Saturation 92.4 L (95.0-98.0) % FiO2 40.0 % Sodium (132-148) mmol/L Potassium (3.6-5.0) mmol/L Chloride (98-107) mmol/L Carbon Dioxide (21-33) mmol/L Anion Gap (10-20) BUN (7-21) mg/dL Creatinine (0.8-1.5) mg/dl Est GFR ( Amer) Est GFR (Non-Af Amer) POC Glucose (mg/dL) 140 H 95 (65-110) mg/dL Random Glucose (70-110) mg/dL Calcium (8.4-10.5) mg/dL Phosphorus (2.5-4.5) mg/dL Magnesium (1.7-2.2) mg/dL Total Bilirubin (0.2-1.3) mg/dL AST (17-59) U/L ALT (7-56) U/L Alkaline Phosphatase (38-126) U/L Total Protein (5.8-8.3) g/dL Albumin (3.0-4.8) g/dL Globulin gm/dL Albumin/Globulin Ratio (1.1-1.8) Vancomycin Trough (5.0-10.0) ug/mL HIV-1 Ab Rapid Screen (NON REAC) Laboratory Results - last 24 hr 04/21/17 04/21/17 04/21/17 18:15 21:25 23:16 WBC RBC Hgb Hct MCV MCH MCHC RDW Plt Count Gran % Lymph % (Auto) [place] % (Auto) Eos % (Auto) Baso % (Auto) Gran # Lymph # (Auto) [place] # (Auto) Eos # (Auto) Baso # (Auto) Neutrophils % (Manual) Band Neutrophils % Lymphocytes % (Manual) Monocytes % (Manual) Platelet Evaluation Anisocytosis (manual) pCO2 75 H* pO2 82.0 HCO3 35.2 H ABG pH 7.28 L ABG Total CO2 37.5 H ABG O2 Saturation 95.4 ABG O2 Content 19.0 ABG Base Excess 5.5 H ABG Hemoglobin 14.6 ABG Carboxyhemoglobin 2.5 H POC ABG HHb (Measured) 4.5 ABG Methemoglobin 0.6 ABG O2 Capacity 19.9 Hgb O2 Saturation 92.4 L FiO2 40.0 Sodium Potassium Chloride Carbon Dioxide Anion Gap BUN Creatinine Est GFR ( Amer) Est GFR (Non-Af Amer) POC Glucose (mg/dL) 95 140 H Random Glucose Calcium Phosphorus Magnesium Total Bilirubin AST ALT Alkaline Phosphatase Total Protein Albumin Globulin Albumin/Globulin Ratio Vancomycin Trough HIV-1 Ab Rapid Screen 04/22/17 04/22/17 04/22/17 00:20 05:28 05:45 WBC 24.9 H D RBC 4.63 Hgb 14.1 Hct 44.7 MCV 96.5 MCH 30.5 MCHC 31.5 RDW 16.1 H Plt Count 84 L Gran % 91.6 H Lymph % (Auto) 4.6 L [place] % (Auto) 3.8 Eos % (Auto) 0.0 L Baso % (Auto) 0.0 Gran # 22.78 H Lymph # (Auto) 1.2 [place] # (Auto) 0.9 H Eos # (Auto) 0.0 Baso # (Auto) 0.01 Neutrophils % (Manual) 90 H Band Neutrophils % 4 H Lymphocytes % (Manual) 4 L Monocytes % (Manual) 2 Platelet Evaluation Low Anisocytosis (manual) Slight pCO2 pO2 HCO3 ABG pH ABG Total CO2 ABG O2 Saturation ABG O2 Content ABG Base Excess ABG Hemoglobin ABG Carboxyhemoglobin POC ABG HHb (Measured) ABG Methemoglobin ABG O2 Capacity Hgb O2 Saturation FiO2 Sodium Potassium Chloride Carbon Dioxide Anion Gap BUN Creatinine Est GFR ( Amer) Est GFR (Non-Af Amer) POC Glucose (mg/dL) 106 Random Glucose Calcium Phosphorus Magnesium Total Bilirubin AST ALT Alkaline Phosphatase Total Protein Albumin Globulin Albumin/Globulin Ratio Vancomycin Trough HIV-1 Ab Rapid Screen Non reactive 04/22/17 04/22/17 04/22/17 05:45 05:45 08:00 WBC RBC Hgb Hct MCV MCH MCHC RDW Plt Count Gran % Lymph % (Auto) [place] % (Auto) Eos % (Auto) Baso % (Auto) Gran # Lymph # (Auto) [place] # (Auto) Eos # (Auto) Baso # (Auto) Neutrophils % (Manual) Band Neutrophils % Lymphocytes % (Manual) Monocytes % (Manual) Platelet Evaluation Anisocytosis (manual) pCO2 60 H pO2 111.0 H HCO3 30.9 H ABG pH 7.32 L ABG Total CO2 32.7 H ABG O2 Saturation 97.2 ABG O2 Content 18.9 ABG Base Excess 3.1 H ABG Hemoglobin 13.9 ABG Carboxyhemoglobin 1.1 POC ABG HHb (Measured) 2.8 ABG Methemoglobin 0.0 ABG O2 Capacity 19.4 Hgb O2 Saturation 96.1 FiO2 40.0 Sodium 144 Potassium 4.9 Chloride 104 Carbon Dioxide 31 Anion Gap 14 BUN 23 H Creatinine 0.9 Est GFR ( Amer) > 60 Est GFR (Non-Af Amer) > 60 POC Glucose (mg/dL) Random Glucose 98 Calcium 9.2 Phosphorus 4.6 H Magnesium 2.5 H Total Bilirubin 0.5 AST 29 ALT 32 Alkaline Phosphatase 49 Total Protein 7.4 Albumin 3.5 Globulin 3.9 Albumin/Globulin Ratio 0.9 L Vancomycin Trough 11.6 H HIV-1 Ab Rapid Screen Critical Care Progress Note - Nutrition Nutrition: Nutrition Category Date Time Status Heart Healthy Diet [DIET] Diets 04/22/17 Breakfast Ordered Assessment/Plan - Assessment and Plan (Free Text) Plan: Patient seen and examined on rounds with resident, agree with note with following additions/exceptions: Pt is 46yo male with multiple comorbid conditions, a/w AMS, severe sepsis, PNA AMS Hypercapnic resp failure PNA Lupus HTN COPD exacerbation - currently febrile, HD stable, somnolent, sat 92% on 3LNC, tolertting being off BIPAP well - mental status significantly improved, AAOx2 - Labs with leukocytosis, acute on chronic hypercapnia resp acidosis, CXR with RLL consolidation Recommend: - supp o2, BIPAP as needed - IV steroids Solumedrol 40mg q8hr, DUoenbs q6hr - broad spectrum abx, Vanco, Merrem, Doxycycline, check Procal, UCx, BCx, Sputum culture - ID consult - monitor HH - DC IVF - ECHO - speech swallow eval - PT eval - GI ppx - DVT ppx - Monitor in MICU
[2017-04-22 08:10] LABS: ARTERIAL BLOOD GAS HCO3 30.9 mmol/L (21-28); ARTERIAL BLOOD GAS HEMOGLOBIN 13.9 g/dL (11.7-17.4); ARTERIAL BLOOD GAS O2 CAPACITY 19.4 mL/dl (16-24); ARTERIAL BLOOD GAS O2 CONTENT 18.9 ML/dl (15-23); ARTERIAL BLOOD GAS O2 SAT 97.2 % (95-98); ARTERIAL BLOOD GAS PCO2 60 mm/Hg (35-45); ARTERIAL BLOOD GAS PH 7.32 (7.35-7.45); ARTERIAL BLOOD GAS TCO2 32.7 mmol.L (22-28)
--- NOTE | 2017-04-22 08:51 | RAD ---
HISTORY: follow COMPARISON: Portable chest 04/21/2017. FINDINGS: LUNGS: A right basilar infiltrate is unchanged with none on the left. PLEURA: Trace right pleural effusion is not excluded. None is seen the left. No pneumothorax bilaterally. CARDIOVASCULAR: Normal. OSSEOUS STRUCTURES: No significant abnormalities. VISUALIZED UPPER ABDOMEN: Normal. OTHER FINDINGS: None. IMPRESSION: Stable right basilar infiltrate. No pleural effusion or pneumothorax bilaterally. No left-sided infiltrate.
[2017-04-22 09:00] LABS: BAND 4 % (0-2); LYMPHOCYTE 4 % (22.0-35.0); MONOCYTE 2 % (1.0-6.0); NEUTROPHIL 90 % (50.0-70.0); PLATELET ESTIMATE LOW (NORMAL)
[2017-04-22 09:01] LABS: ANISOCYTOSIS SLIGHT
[2017-04-22] MEDS: Vancomycin 500mg in NS 500 MG/100 ML BAG IVPB SCH ×3 (10:26→21:38)
[2017-04-22 12:50] LABS: HEPATITIS B SURFACE AG Negative (NEGATIVE)
[2017-04-22 12:56] LABS: HEPATITIS A IGM NEGATIVE (NEGATIVE); HEPATITIS B CORE AB NEGATIVE (NEGATIVE)
[2017-04-22 13:08] LABS: HEPATITIS C ANTIBODY NEGATIVE (NEGATIVE)
[2017-04-22] MEDS: Meropenem 500 MG in Sodium Chloride 0.9% 50 ML IVPB SCH ×2 (13:56→21:38)
--- NOTE | 2017-04-22 17:57 | CARD ---
APPROVED REPORT EKG Measurement Heart [id number] <Conclusion> Sinus tachycardia Left posterior fascicular block Abnormal ECG
[2017-04-22 18:48] LABS: PH,URINE 5.5 (4.7-8.0); URINE BILIRUBIN NEGATIVE (NEGATIVE); URINE BLOOD LARGE (NEGATIVE); URINE GLUCOSE (UA) NEGATIVE (NEGATIVE); URINE LEUKOCYTE ESTERASE NEGATIVE Leu/uL (NEGATIVE); URINE PROTEIN NEGATIVE mg/dL (<30 mg/dL); URINE UROBILINOGEN 0.2 E.U./dL (<1 E.U./dL)
--- NOTE | 2017-04-22 18:48 | CP.PCM.CON ---
History of Present Illness - History of Present Illness History of Present Illness: Infectious Disease Consultation: April 22, 2017 46 yo AA male who is a resident at [facility] ([facility]) sent to [facility] for fevers up to 102.7 F, tachycardia, hypoxia, and AMS. The patient has an extensive past medical history that includes chronic obstructive lung disease, chronic pain syndrome, methadone dependence, diabetes mellitus, systemic lupus erythematous, and depression. The patient himself denies any medical symptoms now but states chills and weakness at [facility]. He also mentions occassional bloating of the abdomen for the past week but no increased flatulence or eructation. He states his appetite in good. Patient is wheelchair bound normally. He denies any burning on urination or increased urinary frequency. He denies shortness of breath. PMHx: chronic obstructive lung disease, chronic pain syndrome, methadone dependence, diabetes mellitus, systemic lupus erythematous, and depression PSHx: none given Allergies: PCN - anaphylactic shock - childhood. Social Hx: no EtOH. Ex-tobacco use. Prior drug abuse and now requiring methadone. intermediate resident. Active Medications Acetaminophen (Tylenol 325mg Tab) 650 mg PO Q6H PRN PRN Reason: Fever >100.4 F Albuterol/Ipratropium (Duoneb 3 Mg/0.5 Mg (3 Ml) Ud) 3 ml IH Q2H PRN PRN Reason: Shortness of Breath Albuterol/Ipratropium (Duoneb 3 Mg/0.5 Mg (3 Ml) Ud) 3 ml IH [id number] [facility] Last Admin: 04/22/17 15:26 Dose: Not Given Alprazolam (Xanax) 0.25 mg PO HS PRN; Protocol PRN Reason: Anxiety Stop: 04/28/17 17:28 Arformoterol Tartrate (Brovana) 15 mcg IH [id number] [facility] Last Admin: 04/22/17 07:26 Dose: 15 mcg Aspirin (Aspirin Chewable) 81 mg PO DAILY [facility] Last Admin: 04/22/17 09:50 Dose: 81 mg Atorvastatin Calcium (Lipitor) 40 mg PO DIN [facility] Last Admin: 04/22/17 17:22 Dose: 40 mg Docusate Sodium (Colace) 100 mg PO TID [facility] Last Admin: 04/22/17 17:20 Dose: Not Given Furosemide (Lasix) 20 mg PO BID [facility] Last Admin: 04/22/17 17:22 Dose: 20 mg Doxycycline Hyclate 100 mg/ (Sodium Chloride) 100 mls @ 100 mls/hr IVPB Q12 [facility] PRN Reason: Protocol Stop: 04/28/17 22:01 Last Admin: 04/22/17 10:26 Dose: 100 mls/hr Vancomycin HCl (Vancomycin 500mg In Ns) 500 mg in 100 mls @ 200 mls/hr IVPB Q12 [facility] PRN Reason: Protocol Last Admin: 04/22/17 10:59 Dose: Not Given Meropenem 500 mg/ Sodium (Chloride) 50 mls @ 100 mls/hr IVPB Q8 [facility] PRN Reason: Protocol Stop: 04/22/17 22:29 Last Admin: 04/22/17 13:56 Dose: 100 mls/hr Methylprednisolone (Solu-Medrol) 40 mg IVP Q8 [facility] Last Admin: 04/22/17 14:01 Dose: 40 mg Montelukast Sodium (Singulair) 10 mg PO HS [facility] Last Admin: 04/21/17 21:44 Dose: 10 mg Nicotine (Nicoderm Cq) 1 patch TD DAILY [facility] Last Admin: 04/22/17 10:27 Dose: 1 patch Pantoprazole Sodium (Protonix Inj) 40 mg IVP DAILY [facility] Last Admin: 04/22/17 09:50 Dose: 40 mg Family Hx: none given ROS: AMS. fevers up to 102.7 F, no cough or SOB. No dizziness. No chest pain or abdominal pain. No nausea or vomiting. No melena, hematuria, hematemesis, or hematochezia. No depression of anxiety. Past Patient History - Infectious Disease Hx of Infectious Diseases: None - Tetanus Immunizations Tetanus Immunization: Unknown - Past Medical History & Family History Past Medical History?: Yes - Past Social History Smoking Status: Current Some Days Smoker - CARDIAC Hx Cardiac Disorders: No - PULMONARY Hx Asthma: Yes - NEUROLOGICAL Other/Comment: SLE - HEENT Hx HEENT Problems: No - RENAL Hx Chronic Kidney Disease: No - ENDOCRINE/METABOLIC Hx Diabetes Insipidus: Yes Other/Comment: lupus - HEMATOLOGICAL/ONCOLOGICAL Hx Blood Disorders: No Hx Sickle Cell Disease: No - INTEGUMENTARY Hx Dermatological Problems: No - MUSCULOSKELETAL/RHEUMATOLOGICAL Hx Falls: No - GASTROINTESTINAL Hx Gastrointestinal Disorders: No - GENITOURINARY/GYNECOLOGICAL Hx Genitourinary Disorders: No - PSYCHIATRIC Hx Depression: Yes Hx Substance Use: Yes Other/Comment: drug abuse - SURGICAL HISTORY Hx Appendectomy: No Hx Cholecystectomy: No Hx Coronary Stent: No - ANESTHESIA Hx Anesthesia Reactions: No Hx Malignant Hyperthermia: No Meds Allergies/Adverse Reactions: Allergies Allergy/AdvReac Type Severity Reaction Status Date / Time penicillin V AdvReac ANAPHYLAXIS Verified 04/21/17 15:51 - Medications Medications: Current Medications Acetaminophen (Tylenol 325mg Tab) 650 mg PO Q6H PRN PRN Reason: Fever >100.4 F Albuterol/Ipratropium (Duoneb 3 Mg/0.5 Mg (3 Ml) Ud) 3 ml IH Q2H PRN PRN Reason: Shortness of Breath Albuterol/Ipratropium (Duoneb 3 Mg/0.5 Mg (3 Ml) Ud) 3 ml IH [id number] [facility] Last Admin: 04/22/17 15:26 Dose: Not Given Alprazolam (Xanax) 0.25 mg PO HS PRN; Protocol PRN Reason: Anxiety Stop: 04/28/17 17:28 Arformoterol Tartrate (Brovana) 15 mcg IH [id number] [facility] Last Admin: 04/22/17 07:26 Dose: 15 mcg Aspirin (Aspirin Chewable) 81 mg PO DAILY [facility] Last Admin: 04/22/17 09:50 Dose: 81 mg Atorvastatin Calcium (Lipitor) 40 mg PO DIN [facility] Last Admin: 04/22/17 17:22 Dose: 40 mg Docusate Sodium (Colace) 100 mg PO TID [facility] Last Admin: 04/22/17 17:20 Dose: Not Given Furosemide (Lasix) 20 mg PO BID [facility] Last Admin: 04/22/17 17:22 Dose: 20 mg Doxycycline Hyclate 100 mg/ (Sodium Chloride) 100 mls @ 100 mls/hr IVPB Q12 [facility] PRN Reason: Protocol Stop: 04/28/17 22:01 Last Admin: 04/22/17 10:26 Dose: 100 mls/hr Vancomycin HCl (Vancomycin 500mg In Ns) 500 mg in 100 mls @ 200 mls/hr IVPB Q12 [facility] PRN Reason: Protocol Last Admin: 04/22/17 10:59 Dose: Not Given Meropenem 500 mg/ Sodium (Chloride) 50 mls @ 100 mls/hr IVPB Q8 [facility] PRN Reason: Protocol Stop: 04/22/17 22:29 Last Admin: 04/22/17 13:56 Dose: 100 mls/hr Methylprednisolone (Solu-Medrol) 40 mg IVP Q8 [facility] Last Admin: 04/22/17 14:01 Dose: 40 mg Montelukast Sodium (Singulair) 10 mg PO HS [facility] Last Admin: 04/21/17 21:44 Dose: 10 mg Nicotine (Nicoderm Cq) 1 patch TD DAILY [facility] Last Admin: 04/22/17 10:27 Dose: 1 patch Pantoprazole Sodium (Protonix Inj) 40 mg IVP DAILY [facility] Last Admin: 04/22/17 09:50 Dose: 40 mg Physical Exam - Constitutional Appears: Non-toxic, No Acute Distress, Chronically Ill - Head Exam Head Exam: ATRAUMATIC, NORMOCEPHALIC - Eye Exam Eye Exam: EOMI, PERRL Pupil Exam: NORMAL ACCOMODATION, PERRL - ENT Exam ENT Exam: Mucous Membranes Moist, Normal External Ear Exam, TM's Normal Bilaterally - Neck Exam Neck exam: Positive for: Full Rom, Normal Inspection - Respiratory Exam Respiratory Exam: Decreased Breath Sounds, NORMAL BREATHING PATTERN. absent: Rales, Rhonchi, Wheezes - Cardiovascular Exam Cardiovascular Exam: Tachycardia, RRR, +S1, +S2 - GI/Abdominal Exam GI & Abdominal Exam: Normal Bowel Sounds, Soft. absent: Distended, Tenderness - Extremities Exam Extremities exam: Positive for: full ROM, normal inspection - Neurological Exam Neurological exam: Alert, Oriented x3 - Psychiatric Exam Psychiatric exam: Normal Affect, Normal Mood - Skin Skin Exam: Intact, Normal Color Results - Vital Signs Recent Vital Signs: Last Vital Signs Temp 97.3 F L 04/22/17 16:00 Pulse 73 04/22/17 17:50 Resp 20 04/22/17 17:50 BP 108/65 04/22/17 17:23 Pulse Ox 97 04/22/17 17:50 - Labs Result Diagrams: 04/22/17 05:45 04/22/17 05:45 Labs: Laboratory Results - last 24 hr 04/21/17 04/21/17 04/22/17 21:25 23:16 00:20 WBC RBC Hgb Hct MCV MCH MCHC RDW Plt Count Gran % Lymph % (Auto) Benson % (Auto) Eos % (Auto) Baso % (Auto) Gran # Lymph # (Auto) Benson # (Auto) Eos # (Auto) Baso # (Auto) Neutrophils % (Manual) Band Neutrophils % Lymphocytes % (Manual) Monocytes % (Manual) Platelet Evaluation Anisocytosis (manual) pCO2 75 H* pO2 82.0 HCO3 35.2 H ABG pH 7.28 L ABG Total CO2 37.5 H ABG O2 Saturation 95.4 ABG O2 Content 19.0 ABG Base Excess 5.5 H ABG Hemoglobin 14.6 ABG Carboxyhemoglobin 2.5 H POC ABG HHb (Measured) 4.5 ABG Methemoglobin 0.6 ABG O2 Capacity 19.9 Hgb O2 Saturation 92.4 L FiO2 40.0 Sodium Potassium Chloride Carbon Dioxide Anion Gap BUN Creatinine Est GFR ( Amer) Est GFR (Non-Af Amer) POC Glucose (mg/dL) 140 H Random Glucose Calcium Phosphorus Magnesium Total Bilirubin AST ALT Alkaline Phosphatase Total Protein Albumin Globulin Albumin/Globulin Ratio Vancomycin Trough Hepatitis A IgM Ab Negative Hep Bs Antigen Negative Hep B Core IgM Ab Negative Hepatitis C Antibody Negative HIV-1 Ab Rapid Screen HIV 1&2 Antibody Screen 04/22/17 04/22/17 04/22/17 00:20 00:20 05:28 WBC RBC Hgb Hct MCV MCH MCHC RDW Plt Count Gran % Lymph % (Auto) Benson % (Auto) Eos % (Auto) Baso % (Auto) Gran # Lymph # (Auto) Benson # (Auto) Eos # (Auto) Baso # (Auto) Neutrophils % (Manual) Band Neutrophils % Lymphocytes % (Manual) Monocytes % (Manual) Platelet Evaluation Anisocytosis (manual) pCO2 pO2 HCO3 ABG pH ABG Total CO2 ABG O2 Saturation ABG O2 Content ABG Base Excess ABG Hemoglobin ABG Carboxyhemoglobin POC ABG HHb (Measured) ABG Methemoglobin ABG O2 Capacity Hgb O2 Saturation FiO2 Sodium Potassium Chloride Carbon Dioxide Anion Gap BUN Creatinine Est GFR ( Amer) Est GFR (Non-Af Amer) POC Glucose (mg/dL) 106 Random Glucose Calcium Phosphorus Magnesium Total Bilirubin AST ALT Alkaline Phosphatase Total Protein Albumin Globulin Albumin/Globulin Ratio Vancomycin Trough Hepatitis A IgM Ab Hep Bs Antigen Hep B Core IgM Ab Hepatitis C Antibody HIV-1 Ab Rapid Screen Non reactive HIV 1&2 Antibody Screen Negative 04/22/17 04/22/17 04/22/17 05:45 05:45 05:45 WBC 24.9 H D RBC 4.63 Hgb 14.1 Hct 44.7 MCV 96.5 MCH 30.5 MCHC 31.5 RDW 16.1 H Plt Count 84 L Gran % 91.6 H Lymph % (Auto) 4.6 L Benson % (Auto) 3.8 Eos % (Auto) 0.0 L Baso % (Auto) 0.0 Gran # 22.78 H Lymph # (Auto) 1.2 Benson # (Auto) 0.9 H Eos # (Auto) 0.0 Baso # (Auto) 0.01 Neutrophils % (Manual) 90 H Band Neutrophils % 4 H Lymphocytes % (Manual) 4 L Monocytes % (Manual) 2 Platelet Evaluation Low Anisocytosis (manual) Slight pCO2 pO2 HCO3 ABG pH ABG Total CO2 ABG O2 Saturation ABG O2 Content ABG Base Excess ABG Hemoglobin ABG Carboxyhemoglobin POC ABG HHb (Measured) ABG Methemoglobin ABG O2 Capacity Hgb O2 Saturation FiO2 Sodium 144 Potassium 4.9 Chloride 104 Carbon Dioxide 31 Anion Gap 14 BUN 23 H Creatinine 0.9 Est GFR ( Amer) > 60 Est GFR (Non-Af Amer) > 60 POC Glucose (mg/dL) Random Glucose 98 Calcium 9.2 Phosphorus 4.6 H Magnesium 2.5 H Total Bilirubin 0.5 AST 29 ALT 32 Alkaline Phosphatase 49 Total Protein 7.4 Albumin 3.5 Globulin 3.9 Albumin/Globulin Ratio 0.9 L Vancomycin Trough 11.6 H Hepatitis A IgM Ab Hep Bs Antigen Hep B Core IgM Ab Hepatitis C Antibody HIV-1 Ab Rapid Screen HIV 1&2 Antibody Screen 04/22/17 04/22/17 08:00 12:10 WBC RBC Hgb Hct MCV MCH MCHC RDW Plt Count Gran % Lymph % (Auto) Benson % (Auto) Eos % (Auto) Baso % (Auto) Gran # Lymph # (Auto) Benson # (Auto) Eos # (Auto) Baso # (Auto) Neutrophils % (Manual) Band Neutrophils % Lymphocytes % (Manual) Monocytes % (Manual) Platelet Evaluation Anisocytosis (manual) pCO2 60 H pO2 111.0 H HCO3 30.9 H ABG pH 7.32 L ABG Total CO2 32.7 H ABG O2 Saturation 97.2 ABG O2 Content 18.9 ABG Base Excess 3.1 H ABG Hemoglobin 13.9 ABG Carboxyhemoglobin 1.1 POC ABG HHb (Measured) 2.8 ABG Methemoglobin 0.0 ABG O2 Capacity 19.4 Hgb O2 Saturation 96.1 FiO2 40.0 Sodium Potassium Chloride Carbon Dioxide Anion Gap BUN Creatinine Est GFR ( Amer) Est GFR (Non-Af Amer) POC Glucose (mg/dL) 120 H Random Glucose Calcium Phosphorus Magnesium Total Bilirubin AST ALT Alkaline Phosphatase Total Protein Albumin Globulin Albumin/Globulin Ratio Vancomycin Trough Hepatitis A IgM Ab Hep Bs Antigen Hep B Core IgM Ab Hepatitis C Antibody HIV-1 Ab Rapid Screen HIV 1&2 Antibody Screen Assessment & Plan - Assessment and Plan (Free Text) Assessment: 46 yo AA male with presentation from [facility] ([facility]) for AMS, fevers, tachycardia, and hypoxia down to 75% Oxygen saturation. The patient was given Levaquin, Vancomycin, Doxycycline, and Meropenem. ON Meropenem and Vancomycin now. Patient improving. Cultures with no specific growth at this time. Supportive care. Known to have some compliance issue with medications in the past. Awaiting final cultures. Supportive care. Continue on Meroepenem and Vancomycin for now. Cultures to be finalized. Thank you for allowing me to participate in the care of the patient, we will follow with you.
[2017-04-22 19:03] LABS: URINE APPEARANCE CLOUDY (CLEAR); URINE COLOR YELLOW (YELLOW)
[2017-04-22 19:17] LABS: URINE EPITHELIAL CELLS 0 - 2 /hpf (0-5); URINE RBC TNTC /hpf (0-2)
[2017-04-23] MEDS: Albuterol-Ipratrop 3 mg / 0.5 (3 ml) UD IH SCH ×5 (02:57→21:55)
--- NOTE | 2017-04-23 03:35 | CON ---
DATE: PULMONARY CONSULTATION REFERRING PHYSICIAN: Dr. Hester. REASON FOR CONSULTATION: Chronic obstructive lung disease, sleep apnea syndrome. HISTORY OF PRESENT ILLNESS: This is a 46-year-old gentleman with past medical history significant for chronic obstructive lung disease, hypertension, diabetes, has a lupus, depression, brought in from alf with change in mental status, had a fever up to 102 with tachypnea and tachycardia and hypoxemia, verbally only answer was yes or no for questions, resuscitated with the fluid, admitted to Intensive Care Unit, noninvasive ventilation , presently is much more awake and alert, feels better. No hemoptysis, no hematemesis, no hematuria, no diarrhea reported. PAST MEDICAL HISTORY: Diabetes, hypertension, chronic obstructive lung disease, lupus, depression, diabetes. ALLERGIES: PENICILLIN, DEVELOPED ANAPHYLAXIS. FAMILY HISTORY: No significant cardiopulmonary disease reported. SOCIAL HISTORY: Former smoker. Denies any alcohol use. MEDICATIONS: He is on aspirin 81 mg daily, Brovana inhaled twice a day, Colace 100 mg three times a day, doxycycline 100 mg twice a day, DuoNeb q. 12 hours p.r.n., Lasix 20 mg twice a day, Lipitor 40 mg daily, meropenem 500 mg q. 8 hours, Nicoderm patch daily, Protonix 40 mg daily, Singulair 10 mg daily, Solu-Medrol 40 mg q. 8 hours, Tylenol p.r.n., vancomycin 500 mg q. 12 hours, Xanax 0.25 mg at bedtime p.r.n. for anxiety. REVIEW OF SYSTEMS: No headache, no rhinitis. Has some cough, shortness of breath. No chest pain. No abdominal pain. No dysuria. No leg pain or leg swelling. PHYSICAL EXAMINATION: GENERAL: Lying in the bed, in no acute distress. VITAL SIGNS: Temperature is 98, heart rate 73, T max 102, heart rate is 64, blood pressure 108/65, pulse ox 96% on nasal cannula. HEENT: Moist mucous membranes. Crowded airway. Mallampati score is IV. NECK: Short thick neck. LUNGS: Has a scattered rhonchi, prolonged expiratory phase with some wheezing. HEART: S1 and S2. ABDOMEN: Soft, nontender, no organomegaly. EXTREMITIES: There is no edema. NEUROLOGIC: Awake and alert. Follows simple commands. LABORATORY DATA: Shows hemoglobin 14.1, hematocrit 44.7, WBC 25,000, platelet is 84. INR 1.25. PTT is 31. Blood gases on admission shows pH 7.28, pCO2 75, O2 is 82. Blood gases this morning shows pH 7.32, PCO2 60, O2 111, this is on supplemental oxygen. Sodium 144, potassium 4.9, chloride 104, bicarbonate 31, BUN 23, creatinine 0.9, glucose 120, calcium is 9.2, phosphorus 4.6, magnesium 2.5, AST 29, ALT 32, alk phos is 49. Albumin 3.5. Serology testing HIV 1 and 2 screening is negative. Microbiology, blood culture has been negative. Chest x-ray done yesterday in the ER shows extensive right lower lobe infiltrate with consolidation. IMPRESSION AND PLAN: Respiratory failure, requiring noninvasive ventilation, had a CO2 retention with change in mental status, history of lupus, hypertension, chronic lung disease. We will continue intravenous and inhaled bronchodilator. Continue antibiotics covering healthcare-associated organisms. We will get echocardiogram to evaluate left ventricular and right ventricular function, need to review previous x-rays to compare the infiltrates. Aspiration precaution. Follow up ABG, chest x-ray, CBC, CMP in the morning. Thank you and we will follow with you. Farheen Guillen MD
[2017-04-23] MEDS: Arformoterol 15 mcg/2 ml Inh Sol IH SCH ×2 (07:05→21:55)
[2017-04-23 07:12] LABS: BASO # 0.01 K/mm3 (0.0-2.0); GRAN # 21.49 (1.4-6.5); GRAN % 91.6 % (50.0-68.0); HEMOGLOBIN 14.1 g/dL (14.0-18.0); LYMPH # 0.8 (1.2-3.4); LYMPH % 3.6 % (22.0-35.0); MEAN CELL VOLUME 96.6 fl (80.0-105.0); MEAN CORPUSCULAR HEMOGLOBIN 31.5 pg (25.0-35.0); MEAN CORPUSCULAR HGB CONC 32.6 g/dl (31.0-37.0); MONO # 1.1 (0.1-0.6); MONO % 4.8 % (1.0-6.0); PLATELET COUNT 143 10^3/uL (120.0-450.0); RBC 4.47 10^6/uL (3.5-6.1); RED CELL DISTRIBUTION WIDTH 15.9 % (11.5-14.5); WHITE BLOOD COUNT 23.5 10^3/ul (4.5-11.0)
[2017-04-23 07:24] LABS: IRON 41 ug/dL (45-180)
[2017-04-23 07:28] LABS: ALB/GLOB RATIO 0.9 (1.1-1.8); ALBUMIN 3.4 g/dL (3.0-4.8); ALT/SGPT 31 U/L (7-56); AST/SGOT 22 U/L (17-59); BLOOD UREA NITROGEN 27 mg/dL (7-21); CALCIUM 9.7 mg/dL (8.4-10.5); GFR AFRICAN-AMERICAN > 60; GFR NON-AFRICAN AMERICAN > 60
[2017-04-23 07:33] LABS: % IRON SATURATION 17 % (20-55); TOTAL IRON BINDING CAPACITY 240 ug/dL (261-462)
[2017-04-23] MEDS: Pantoprazole 40 mg EC Tab PO SCH (08:05)
[2017-04-23] MEDS: MethylPREDNISolone 40 mg Vial IVP SCH ×3 (08:06→22:56)
--- NOTE | 2017-04-23 08:23 | HP ---
CHIEF COMPLAINT: Coughing, shortness of breath. HISTORY OF PRESENT ILLNESS: is a 46-year-old male with past medical history of COPD, asthma, diabetes mellitus, rheumatoid arthritis, hypertension, depression and lupus, came to the Emergency Department via EMS from [facility]. He is a long-term resident of there. As per jail staff, the patient has fever of 102.7, heart rate 131, and pulse oximetry is 75% to 86% oxygen saturation. Patient was lethargic. Reports to verbal stimuli and answers "yes" or "no" to limited questions. Having generalized pain, shortness of breath, coughing. PAST MEDICAL HISTORY: As above. Asthma, lupus, diabetes mellitus, depression, history of substance abuse, history of methadone dependency. FAMILY HISTORY: Father and mother, noncontributory. HABITS: Selectively smoking. Alcohol, yes. Substance abuse history ALLERGIES: HE IS ALLERGIC TO PENICILLIN. HOME MEDICATIONS: Ativan, Xanax, Celebrex, Lovenox, milk of magnesia, melatonin, methadone, Prilosec, Zofran, MiraLax, Norvasc, Azactam. REVIEW OF SYSTEMS: Patient is seen and examined on the bedside in the unit, looking little bit comfortable. No nausea, vomiting, or diarrhea. No hematuria or hematochezia. No swelling of the legs. No chest pain. No palpitation. No headache. No dizziness. Still coughing with shortness of breath. PHYSICAL EXAMINATION VITAL SIGNS: Temperature 100.9, pulse 110, respiratory rate 16, blood pressure 11/55, pulse oximetry 97%. HEENT: Head: Normocephalic, atraumatic. Eyes, PERRLA. Extraocular muscles intact. Conjunctivae clear. Nose patent. NECK: Supple. No carotid bruit, JVD, or thyromegaly. CHEST: Bilaterally symmetrical. HEART: S1 and S2 positive. LUNGS: Clear to auscultation. ABDOMEN: Soft. Bowel sounds present. No organomegaly. EXTREMITIES: No edema. No cyanosis. NEUROLOGIC: Patient is awake, alert. Moving all 4 extremities. No focal deficit. LABORATORY DATA: White blood cell is 3.7, hemoglobin 14.6, hematocrit 46, platelets 148,000. Sodium 146, potassium 4.2, BUN 34, creatinine 1.2, glucose 75. ASSESSMENT AND PLAN: Mr. Lucero is a 46-year-old male with leukocytosis and renal insufficiency, came with a little bit altered mental status, at the baseline; hypercapnia; pneumonia; history of diabetes mellitus; hypertension; asthma; chronic obstructive pulmonary disease; lupus; degenerative joint disease. Seen by Dr. Quirino Moffett, Infectious Disease. CAT scan of the head done. Patient had methadone dependency, tachycardia, fever, oxygen saturation. Patient is on Levaquin, vancomycin, doxycycline and meropenem - on meropenem and vancomycin now. The patient is improving. Cultures, there is no specific growth at this time. Supportive care. Patient had compliance issues with the medications in the past. Waiting for cultures. Continue meropenem and vancomycin now and DuoNeb. Pulmonary consult also called. Repeat labs. We will follow. Terri Hester MD [id number]
[2017-04-23] MEDS: METHADONE PO ONE ×2 (08:57→08:59)
[2017-04-23] MEDS: Vancomycin 500mg in NS 500 MG/100 ML BAG IVPB SCH ×2 (10:03→22:56)
[2017-04-23 12:55] LABS: FOLATE 13.8 ng/mL
--- NOTE | 2017-04-23 15:59 | CP.PCM.PN ---
<Sherice Huizar - Last Filed: 04/23/17 15:55> Subjective - Date & Time of Evaluation Date of Evaluation: 04/23/17 Time of Evaluation: 09:40 - Subjective Subjective: Chief Complaint: Pain 46 yr male resident of [facility] w/ history of COPD chronic pain syndrome, methadone dependence, DM II, SLE, Depression, HTN. Pt admitted to [facility] for AMS, fevers, tachycardia, & hypokia 75% pulse oximetry. Today, seen in CCU with no distress. Pt is demanding to recieve methadone from his nurse and is refusing current plan of care. Pt has been having episodes of bradycardia so methadone has been held. Pt denies any fever, chills, chest pain , shortness of breath, diarrhea, constipation, paresthesia, or urinary changes Objective - Vital Signs/Intake and Output Vital Signs (last 24 hours): Temp Pulse Resp BP Pulse Ox 98.6 F 53 L 33 H 122/49 L 86 L 04/23/17 06:00 04/23/17 14:00 04/23/17 14:00 04/23/17 12:00 04/23/17 12:00 Intake and Output: 04/23/17 04/23/17 06:59 18:59 Intake Total 660 Output Total 800 Balance -140 - Medications Medications: Current Medications Acetaminophen (Tylenol 325mg Tab) 650 mg PO Q6H PRN PRN Reason: Fever >100.4 F Last Admin: 04/23/17 04:11 Dose: 650 mg Albuterol/Ipratropium (Duoneb 3 Mg/0.5 Mg (3 Ml) Ud) 3 ml IH Q2H PRN PRN Reason: Shortness of Breath Albuterol/Ipratropium (Duoneb 3 Mg/0.5 Mg (3 Ml) Ud) 3 ml IH [id number] [facility] Last Admin: 04/23/17 15:34 Dose: Not Given Alprazolam (Xanax) 0.25 mg PO HS PRN; Protocol PRN Reason: Anxiety Stop: 04/28/17 17:28 Arformoterol Tartrate (Brovana) 15 mcg IH [id number] [facility] Last Admin: 04/23/17 07:05 Dose: Not Given Aspirin (Aspirin Chewable) 81 mg PO DAILY [facility] Last Admin: 04/23/17 10:03 Dose: 81 mg Atorvastatin Calcium (Lipitor) 40 mg PO DIN [facility] Last Admin: 04/22/17 17:22 Dose: 40 mg Docusate Sodium (Colace) 100 mg PO TID [facility] Last Admin: 04/22/17 17:20 Dose: Not Given Furosemide (Lasix) 20 mg PO BID [facility] Last Admin: 04/23/17 10:03 Dose: 20 mg Doxycycline Hyclate 100 mg/ (Sodium Chloride) 100 mls @ 100 mls/hr IVPB Q12 [facility] PRN Reason: Protocol Stop: 04/28/17 22:01 Last Admin: 04/23/17 10:45 Dose: 100 mls/hr Vancomycin HCl (Vancomycin 500mg In Ns) 500 mg in 100 mls @ 200 mls/hr IVPB Q12 [facility] PRN Reason: Protocol Last Admin: 04/23/17 10:03 Dose: 200 mls/hr Methylprednisolone (Solu-Medrol) 40 mg IVP Q8 [facility] Last Admin: 04/23/17 08:06 Dose: 40 mg Montelukast Sodium (Singulair) 10 mg PO HS [facility] Last Admin: 04/22/17 21:37 Dose: 10 mg Nicotine (Nicoderm Cq) 1 patch TD DAILY [facility] Last Admin: 04/23/17 10:27 Dose: 1 patch Pantoprazole Sodium (Protonix Ec Tab) 40 mg PO 0600 [facility] Last Admin: 04/23/17 08:05 Dose: 40 mg - Labs Labs: 04/23/17 06:55 04/23/17 06:55 PT 14.3 SECONDS (9.4-12.5) H 04/21/17 16:05 INR 1.25 (0.93-1.08) H 04/21/17 16:05 APTT 30.9 Seconds (25.1-36.5) 04/21/17 16:05 - Constitutional Appears: Chronically Ill - Head Exam Head Exam: ATRAUMATIC, NORMAL INSPECTION, NORMOCEPHALIC - ENT Exam ENT Exam: Mucous Membranes Moist, Normal Exam - Respiratory Exam Respiratory Exam: Clear to Ausculation Bilateral, NORMAL BREATHING PATTERN - Cardiovascular Exam Cardiovascular Exam: REGULAR RHYTHM, +S1, +S2. absent: Murmur - GI/Abdominal Exam GI & Abdominal Exam: Distended, Firm - Extremities Exam Extremities Exam: Normal Capillary Refill, Normal Inspection. absent: Joint Swelling, Pedal Edema Additional comments: non ambulatory. - Neurological Exam Neurological Exam: Alert, Awake, Oriented x3 - Psychiatric Exam Psychiatric exam: Anxious - Skin Skin Exam: Dry, Intact, Normal Color, Warm Assessment and Plan (1) Hyperkalemia Status: Acute (2) Dehydration Status: Acute (3) Hyperthyroidism Status: Acute (4) Hematuria Status: Acute (5) Altered mental status Status: Acute (6) Hypercapnia Status: Acute (7) Pneumonia Status: Acute (8) Anemia Status: Acute (9) Fever Status: Acute (10) Leukocytosis Status: Acute - Assessment and Plan (Free Text) Plan: Labs ordered. Culture: blood NEGATIVE. Pneumonia treatment: PO doxycycline. IV vanco. IV solumedryl. VTE/GI prophylaxis. PT/OT. Cpap/Bipap q HS. pain management: methadone PO Consults: Cardio - Dr. Rebel Muniz - Dr. Guillen ID - Dr. Moffett Reviwed: CXR = 04/22 - stable R basilar infiltrate No pleural effusion or pneumothorax bilaterally no L sided infiltrate CXR = extensive R loer lobe infiltrate/mass/consolidation. represents a chronic or reccurrent process CT head = severe chronic L frontal and bilateral maxillary sinusitis ECG = ABNORMAL, ST, L posterior fascicular block <Terri Hester - Last Filed: 04/23/17 21:26> Objective - Vital Signs/Intake and Output Vital Signs (last 24 hours): Temp Pulse Resp BP Pulse Ox 97.9 F 50 L 20 135/88 93 L 04/23/17 16:00 04/23/17 16:00 04/23/17 16:00 04/23/17 18:06 04/23/17 16:00 Intake and Output: 04/23/17 04/24/17 18:59 06:59 Intake Total 660 Output Total 800 Balance -140 - Medications Medications: Current Medications Acetaminophen (Tylenol 325mg Tab) 650 mg PO Q6H PRN PRN Reason: Fever >100.4 F Last Admin: 04/23/17 04:11 Dose: 650 mg Albuterol/Ipratropium (Duoneb 3 Mg/0.5 Mg (3 Ml) Ud) 3 ml IH Q2H PRN PRN Reason: Shortness of Breath Albuterol/Ipratropium (Duoneb 3 Mg/0.5 Mg (3 Ml) Ud) 3 ml IH [id number] [facility] Last Admin: 04/23/17 15:34 Dose: Not Given Alprazolam (Xanax) 0.25 mg PO HS PRN; Protocol PRN Reason: Anxiety Stop: 04/28/17 17:28 Arformoterol Tartrate (Brovana) 15 mcg IH [id number] [facility] Last Admin: 04/23/17 07:05 Dose: Not Given Aspirin (Aspirin Chewable) 81 mg PO DAILY [facility] Last Admin: 04/23/17 10:03 Dose: 81 mg Atorvastatin Calcium (Lipitor) 40 mg PO DIN [facility] Last Admin: 04/23/17 18:08 Dose: 40 mg Docusate Sodium (Colace) 100 mg PO TID [facility] Last Admin: 04/23/17 18:44 Dose: Not Given Furosemide (Lasix) 20 mg PO BID [facility] Last Admin: 04/23/17 18:06 Dose: 20 mg Doxycycline Hyclate 100 mg/ (Sodium Chloride) 100 mls @ 100 mls/hr IVPB Q12 [facility] PRN Reason: Protocol Stop: 04/28/17 22:01 Last Admin: 04/23/17 10:45 Dose: 100 mls/hr Vancomycin HCl (Vancomycin 500mg In Ns) 500 mg in 100 mls @ 200 mls/hr IVPB Q12 [facility] PRN Reason: Protocol Last Admin: 04/23/17 10:03 Dose: 200 mls/hr Meropenem 500 mg/ Sodium (Chloride) 50 mls @ 100 mls/hr IVPB Q8 [facility] PRN Reason: Protocol Methylprednisolone (Solu-Medrol) 40 mg IVP Q8 [facility] Last Admin: 04/23/17 18:45 Dose: Not Given Montelukast Sodium (Singulair) 10 mg PO HS [facility] Last Admin: 04/22/17 21:37 Dose: 10 mg Nicotine (Nicoderm Cq) 1 patch TD DAILY [facility] Last Admin: 04/23/17 10:27 Dose: 1 patch Pantoprazole Sodium (Protonix Ec Tab) 40 mg PO 0600 [facility] Last Admin: 04/23/17 08:05 Dose: 40 mg - Labs Labs: 04/23/17 06:55 04/23/17 06:55 PT 14.3 SECONDS (9.4-12.5) H 04/21/17 16:05 INR 1.25 (0.93-1.08) H 04/21/17 16:05 APTT 30.9 Seconds (25.1-36.5) 04/21/17 16:05 Assessment and Plan - Assessment and Plan (Free Text) Plan: 46 yr male resident of [facility] w/ history of COPD chronic pain syndrome, methadone dependence, DM II, SLE, Depression, HTN. Pt admitted to [facility] for AMS, fevers, tachycardia, & hypokia 75% pulse oximetry. Today, seen in CCU with no distress. Pt is demanding to recieve methadone from his nurse and is refusing current plan of care. Pt has been having episodes of bradycardia so methadone has been held. Pt denies any fever, chills, chest pain , shortness of breath, diarrhea, constipation, paresthesia, or urinary changes. pt is seen and examined at bed side , looking comfortable . agreed all above , chart . labs and meds noted . will f/u
--- NOTE | 2017-04-23 17:25 | CARD ---
APPROVED REPORT EKG Measurement Heart [id number] <Conclusion> Sinus bradycardia with marked sinus arrhythmia Rightward axis Pulmonary disease pattern Nonspecific T wave abnormality Abnormal ECG
--- NOTE | 2017-04-23 17:32 | CP.PCM.PN ---
Subjective - Date & Time of Evaluation Date of Evaluation: 04/23/17 Time of Evaluation: 12:00 - Subjective Subjective: Infectious Disease Follow Up: April 23, 2017 46 yo AA male who is a resident at [facility] sent to [facility] for fevers up to 102.7 F, tachycardia, hypoxia, and AMS. The patient has an extensive past medical history that includes chronic obstructive lung disease, chronic pain syndrome, methadone dependence, diabetes mellitus, systemic lupus erythematous, and depression. The patient himself denies any medical symptoms now but states chills and weakness at [facility]. He also mentions occassional bloating of the abdomen for the past week but no increased flatulence or eructation. He states his appetite in good. Patient is wheelchair bound normally. He denies any burning on urination or increased urinary frequency. He denies shortness of breath. Still with leukocytosis. No fevers. Objective - Vital Signs/Intake and Output Vital Signs (last 24 hours): Temp Pulse Resp BP Pulse Ox 98.6 F 53 L 33 H 122/49 L 86 L 04/23/17 06:00 04/23/17 14:00 04/23/17 14:00 04/23/17 12:00 04/23/17 12:00 Intake and Output: 04/23/17 04/23/17 06:59 18:59 Intake Total 660 Output Total 800 Balance -140 - Medications Medications: Current Medications Acetaminophen (Tylenol 325mg Tab) 650 mg PO Q6H PRN PRN Reason: Fever >100.4 F Last Admin: 04/23/17 04:11 Dose: 650 mg Albuterol/Ipratropium (Duoneb 3 Mg/0.5 Mg (3 Ml) Ud) 3 ml IH Q2H PRN PRN Reason: Shortness of Breath Albuterol/Ipratropium (Duoneb 3 Mg/0.5 Mg (3 Ml) Ud) 3 ml IH [id number] [facility] Last Admin: 04/23/17 15:34 Dose: Not Given Alprazolam (Xanax) 0.25 mg PO HS PRN; Protocol PRN Reason: Anxiety Stop: 04/28/17 17:28 Arformoterol Tartrate (Brovana) 15 mcg IH [id number] [facility] Last Admin: 04/23/17 07:05 Dose: Not Given Aspirin (Aspirin Chewable) 81 mg PO DAILY [facility] Last Admin: 04/23/17 10:03 Dose: 81 mg Atorvastatin Calcium (Lipitor) 40 mg PO DIN [facility] Last Admin: 04/22/17 17:22 Dose: 40 mg Docusate Sodium (Colace) 100 mg PO TID [facility] Last Admin: 04/22/17 17:20 Dose: Not Given Furosemide (Lasix) 20 mg PO BID [facility] Last Admin: 04/23/17 10:03 Dose: 20 mg Doxycycline Hyclate 100 mg/ (Sodium Chloride) 100 mls @ 100 mls/hr IVPB Q12 [facility] PRN Reason: Protocol Stop: 04/28/17 22:01 Last Admin: 04/23/17 10:45 Dose: 100 mls/hr Vancomycin HCl (Vancomycin 500mg In Ns) 500 mg in 100 mls @ 200 mls/hr IVPB Q12 [facility] PRN Reason: Protocol Last Admin: 04/23/17 10:03 Dose: 200 mls/hr Methylprednisolone (Solu-Medrol) 40 mg IVP Q8 [facility] Last Admin: 04/23/17 08:06 Dose: 40 mg Montelukast Sodium (Singulair) 10 mg PO HS [facility] Last Admin: 04/22/17 21:37 Dose: 10 mg Nicotine (Nicoderm Cq) 1 patch TD DAILY [facility] Last Admin: 04/23/17 10:27 Dose: 1 patch Pantoprazole Sodium (Protonix Ec Tab) 40 mg PO 0600 [facility] Last Admin: 04/23/17 08:05 Dose: 40 mg - Labs Labs: 04/23/17 06:55 04/23/17 06:55 PT 14.3 SECONDS (9.4-12.5) H 04/21/17 16:05 INR 1.25 (0.93-1.08) H 04/21/17 16:05 APTT 30.9 Seconds (25.1-36.5) 04/21/17 16:05 - Constitutional Appears: Non-toxic, No Acute Distress, Chronically Ill - Head Exam Head Exam: ATRAUMATIC, NORMOCEPHALIC - Eye Exam Eye Exam: EOMI, PERRL Pupil Exam: NORMAL ACCOMODATION, PERRL - ENT Exam ENT Exam: Mucous Membranes Moist, Normal External Ear Exam, TM's Normal Bilaterally - Neck Exam Neck Exam: Full ROM, Normal Inspection - Respiratory Exam Respiratory Exam: Decreased Breath Sounds, NORMAL BREATHING PATTERN. absent: Rales, Rhonchi, Wheezes - Cardiovascular Exam Cardiovascular Exam: Tachycardia, RRR, +S1, +S2 - GI/Abdominal Exam GI & Abdominal Exam: Soft, Normal Bowel Sounds. absent: Distended, Tenderness - Extremities Exam Extremities Exam: Full ROM, Normal Inspection - Neurological Exam Neurological Exam: Alert, Awake, CN II-XII Intact, Oriented x3 - Psychiatric Exam Psychiatric exam: Normal Affect, Normal Mood - Skin Skin Exam: Intact, Normal Color Assessment and Plan - Assessment and Plan (Free Text) Assessment: 46 yo AA male with presentation from [facility] for AMS, fevers, tachycardia, and hypoxia down to 75% Oxygen saturation. The patient was given Levaquin, Vancomycin, Doxycycline, and Meropenem. ON Meropenem and Vancomycin now. Patient improving. Cultures with no specific growth at this time. Supportive care. Known to have some compliance issue with medications in the past. Awaiting final cultures. Supportive care. Continue on Meropenem and Vancomycin for now. Cultures to be finalized. So far no growth. Patient is currently afebrile. Thank you for allowing me to participate in the care of the patient, we will follow with you.
--- NOTE | 2017-04-23 21:20 | PN ---
DATE: 04/23/2017 PULMONARY PROGRESS NOTE REFERRING PHYSICIAN: Dr. Hester SUBJECTIVE: He is lying in the bed, head at 45 degrees. Night was unremarkable, tolerated BiPAP well, much more awake and alert. He is methadone dependent, apparently had been bradycardic and given only 50 mg methadone instead of 95, demanding and asking more methadone, while awaiting for Cardiology clearance, has a sinus bradycardia, asymptomatic. No cough. No sputum production. No nausea, vomiting or diarrhea. No leg pain or leg swelling. OBJECTIVE: GENERAL: In no acute distress. VITAL SIGNS: Temperature is 98, heart rate is 50, respiratory rate is 20, blood pressure 135/88, pulse ox 93% on nasal cannula. HEENT: Moist mucous membrane. Crowded airway. Mallampati score is IV. NECK: Supple. No JVD. LUNGS: Have scattered rhonchi. HEART: S1 and S2. ABDOMEN: Soft, nontender. No organomegaly. EXTREMITIES: There is no edema. NEUROLOGIC: Awake and alert, follows simple command. MEDICATIONS: He is on aspirin 81 mg daily, Brovana inhaled twice a day, Colace 100 mg three times a day, doxycycline 100 mg twice a day, DuoNeb p.r.n. basis, Lasix 20 mg twice a day, Lipitor 40 mg daily, meropenem 500 mg q. 8 hours, Nicoderm patch daily, Protonix 40 mg daily, Singulair 10 mg at bedtime, Solu-Medrol 40 mg q. 8 hours, Tylenol p.r.n., vancomycin 500 mg q. 12 hours, Xanax 0.25 mg at bedtime p.r.n. LABORATORY DATA: Shows hemoglobin 14.1, hematocrit 43.2, WBC 23,000, platelet count is 143. Sodium 142, potassium 5.2, chloride 101, bicarbonate is 34, BUN 27, creatinine 0.9, glucose 119, calcium is 9.7, phosphorus 4.6, magnesium is 2.3, AST 22, ALT 31, alk phos is 49. Albumin is 3.4. TSH is 0.18. Microbiology, blood culture has been negative. EKG done this afternoon shows sinus bradycardia with marked sinus arrhythmia, rightward axis. IMPRESSION AND PLAN: Status post respiratory failure requiring noninvasive ventilation with CO2 retention and hypoxemia with mental status changes, has a history of lupus, hypertension, chronic lung disease, history of pulmonary infiltrates. We will continue antibiotics. Keep head at 45 degrees. Encourage bilevel positive airway pressure use at night, intravenous steroids, gastric and deep venous thrombosis prophylaxis, awaiting Cardiology opinion about bradycardia. Follow up ABG, chest x-ray, CBC, CMP in the morning. Critical care time spent more than 35 minutes. Thank you and we will follow with you. Farheen Guillen MD
[2017-04-23] MEDS: Meropenem 500 MG in Sodium Chloride 0.9% 50 ML IVPB SCH (22:57)
[2017-04-24] MEDS: Albuterol-Ipratrop 3 mg / 0.5 (3 ml) UD IH SCH ×6 (02:03→19:16)
--- NOTE | 2017-04-24 02:28 | CON ---
DATE: SERVICE: Cardiology. REASON FOR CONSULTATION: Bradycardia, on methadone. BRIEF CLINICAL HISTORY: This is a 46-year-old male with past medical history of COPD, asthma, diabetes mellitus, rheumatoid arthritis, on disability, inability to walk because of severe right knee arthritis, resident of [facility], who was transferred to here because of the fever of 102, lethargic, heart rate 131, and pulse oximetry 75 to 86. The patient initially admitted to the ICU and now the patient transferred to in telemetry. Cardiology consult called because the patient was on methadone program and the heart rate is 52. Patient denies any chest pain, denies any shortness of breath, denies any palpitation. PAST MEDICAL HISTORY: Significant for asthma, SLE, diabetes mellitus, depression, history of polysubstance abuse, and methadone maintenance program. History of severe lupus arthritis on the right knee with narrowing of the joint space and inability to walk and used to fall down because of severe arthritis on the right knee. FAMILY HISTORY: Father and mother noncontributory. SOCIAL HISTORY: Smokes half pack to a pack a day. History of multiple substance abuse in the past, but no methadone program because according to the patient, was in multiple narcotics at [facility] that made him addicted and now the patient is on maintenance methadone program. Denies a history of alcohol abuse. ALLERGIES: ALLERGY TO PENICILLIN. CURRENT MEDICATION: Patient at [facility] was on Lasix, gabapentin, ProAir, Vasotec, Celexa, baclofen, Lipitor, prednisone, methadone 95 mg daily, . Currently on aspirin, Colace, Lasix, nicotine, acetaminophen, vancomycin, Xanax. REVIEW OF SYSTEMS: As per HPI. PHYSICAL EXAMINATION: VITAL SIGNS: Temperature afebrile, heart rate 53, blood pressure 102/49. HEENT: PERRLA. Extraocular muscles intact. NECK: Supple. No carotid bruits or thyromegaly. CHEST: Clear to auscultation. HEART: S1 and S2, regular. ABDOMEN: Soft. EXTREMITIES: Clubbing and cyanosis negative. LABORATORY DATA: Blood workup as follows: WBC 23.5, hemoglobin 14.9, hematocrit 43.2, platelet count 143. Chemistry shows sodium 140, potassium 5.0, chloride 101, carbon dioxide 34, anion gap of 12, BUN 27, creatinine 0.9. EKG today showed sinus lamberto with moderate sinus arrhythmia. Admitting EKG showed sinus tachycardia, heart rate of 113, left posterior fascicular block, right axis deviation. IMPRESSION: Bradycardia, hemodynamically stable. On admission, patient was tachycardic, heart rate of 103 with fever at that time. So, no evidence of chronotropic incompetence. Patient is currently in methadone program, history of polysubstance abuse, history of smoke, history of systemic lupus erythematosus and rheumatoid arthritis as well, history of chronic obstructive pulmonary disease, history of asthma, admitted with hypoxemia, hypercapnia. RECOMMENDATION: Agree with them to cut down the methadone program as the patient is more lethargic, but no evidence of any other arrhythmia noted. We will get echo to assess LV function, monitor closely. We will get TSH level if not done. We will get hemoglobin A1c also if not done in this admission. Agree to cut down methadone though I doubt it is causing bradycardia. We will follow with you. Thank you, Dr. Hester, for providing us the opportunity in taking care of this patient. Farheen Serrano MD
[2017-04-24] MEDS: MethylPREDNISolone 40 mg Vial IVP SCH ×3 (05:23→21:46)
[2017-04-24] MEDS: Meropenem 500 MG in Sodium Chloride 0.9% 50 ML IVPB SCH ×3 (05:23→21:49)
[2017-04-24] MEDS: Pantoprazole 40 mg EC Tab PO SCH (06:50)
[2017-04-24] MEDS: Arformoterol 15 mcg/2 ml Inh Sol IH SCH ×2 (07:36→20:00)
--- NOTE | 2017-04-24 07:49 | CP.PCM.PN ---
Subjective - Date & Time of Evaluation Date of Evaluation: 04/24/17 Time of Evaluation: 06:50 - Subjective Subjective: Seen and examined by me and Dr. Luque Reason for consultation and follow up: bradycardia and on methadone, Lying in bed, comfortable asking for his methadone dose Objective - Vital Signs/Intake and Output Vital Signs (last 24 hours): Temp Pulse Resp BP Pulse Ox 97.9 F 48 L 20 135/88 93 L 04/23/17 16:00 04/24/17 04:44 04/23/17 16:00 04/23/17 18:06 04/23/17 16:00 - Medications Medications: Current Medications Acetaminophen (Tylenol 325mg Tab) 650 mg PO Q6H PRN PRN Reason: Fever >100.4 F Last Admin: 04/23/17 22:14 Dose: 650 mg Albuterol/Ipratropium (Duoneb 3 Mg/0.5 Mg (3 Ml) Ud) 3 ml IH Q2H PRN PRN Reason: Shortness of Breath Albuterol/Ipratropium (Duoneb 3 Mg/0.5 Mg (3 Ml) Ud) 3 ml IH [id number] [facility] Last Admin: 04/24/17 07:36 Dose: Not Given Alprazolam (Xanax) 0.25 mg PO HS PRN; Protocol PRN Reason: Anxiety Stop: 04/28/17 17:28 Arformoterol Tartrate (Brovana) 15 mcg IH [id number] [facility] Last Admin: 04/24/17 07:36 Dose: Not Given Aspirin (Aspirin Chewable) 81 mg PO DAILY [facility] Last Admin: 04/23/17 10:03 Dose: 81 mg Atorvastatin Calcium (Lipitor) 40 mg PO DIN [facility] Last Admin: 04/23/17 18:08 Dose: 40 mg Docusate Sodium (Colace) 100 mg PO TID [facility] Last Admin: 04/23/17 18:44 Dose: Not Given Furosemide (Lasix) 20 mg PO BID [facility] Last Admin: 04/23/17 18:06 Dose: 20 mg Doxycycline Hyclate 100 mg/ (Sodium Chloride) 100 mls @ 100 mls/hr IVPB Q12 [facility] PRN Reason: Protocol Stop: 04/28/17 22:01 Last Admin: 04/23/17 22:56 Dose: Not Given Vancomycin HCl (Vancomycin 500mg In Ns) 500 mg in 100 mls @ 200 mls/hr IVPB Q12 [facility] PRN Reason: Protocol Last Admin: 04/23/17 22:56 Dose: Not Given Meropenem 500 mg/ Sodium (Chloride) 50 mls @ 100 mls/hr IVPB Q8 [facility] PRN Reason: Protocol Last Admin: 04/24/17 05:23 Dose: Not Given Methylprednisolone (Solu-Medrol) 40 mg IVP Q8 [facility] Last Admin: 04/24/17 05:23 Dose: Not Given Montelukast Sodium (Singulair) 10 mg PO HS [facility] Last Admin: 04/23/17 22:21 Dose: 10 mg Nicotine (Nicoderm Cq) 1 patch TD DAILY [facility] Last Admin: 04/23/17 10:27 Dose: 1 patch Pantoprazole Sodium (Protonix Ec Tab) 40 mg PO 0600 [facility] Last Admin: 04/24/17 06:50 Dose: 40 mg - Labs Labs: Phosphorus-4.5, Magnesium- 2.3 04/23/17 06:55 04/23/17 06:55 PT 14.3 SECONDS (9.4-12.5) H 04/21/17 16:05 INR 1.25 (0.93-1.08) H 04/21/17 16:05 APTT 30.9 Seconds (25.1-36.5) 04/21/17 16:05 - Constitutional Appears: No Acute Distress - Head Exam Head Exam: NORMAL INSPECTION - Eye Exam Eye Exam: Normal appearance Pupil Exam: NORMAL ACCOMODATION - ENT Exam ENT Exam: Mucous Membranes Dry - Respiratory Exam Respiratory Exam: Decreased Breath Sounds, Rhonchi - Cardiovascular Exam Cardiovascular Exam: Bradycardia, +S1, +S2 - GI/Abdominal Exam GI & Abdominal Exam: Distended, Soft, Normal Bowel Sounds Additional comments: obese - Neurological Exam Neurological Exam: Alert, Awake - Psychiatric Exam Psychiatric exam: Agitated - Skin Skin Exam: Dry, Intact, Normal Color, Warm Assessment and Plan - Assessment and Plan (Free Text) Assessment: Referred to cardiology service due to bradycardia, on methadone,history of COPD, asthma,rheumatoid arthritis,lupus, left knee pain, heart rate ranges 48/min to 60/min, Plan: For echocardiogram to evaluate EF and cardiac function Heart rate 50 to 62/min Methadone on hold for now,will monitor if heart rate will improve Will follow up Continue current treatment Plan and treatment reviewed with Dr. Luque
--- NOTE | 2017-04-24 09:48 | RAD ---
HISTORY: infiltrate COMPARISON: 04/22/2017 FINDINGS: LUNGS: Substantial improvement right lower lobe infiltrate. Now there is suggestion of a cavitary. Follow-up to resolution recommended PLEURA: No significant pleural effusion identified, no pneumothorax apparent. CARDIOVASCULAR: Normal. OSSEOUS STRUCTURES: No significant abnormalities. VISUALIZED UPPER ABDOMEN: Normal. OTHER FINDINGS: None. IMPRESSION: Interval improvement without resolution right lower lobe cavitary infiltrate.
[2017-04-24] MEDS: Vancomycin 500mg in NS 500 MG/100 ML BAG IVPB SCH ×2 (11:09→21:50)
[2017-04-24 13:47] LABS: BASO # 0.01 K/mm3 (0.0-2.0); BASO % 0.1 % (0.0-3.0); EOS # 0.1 (0.0-0.7); EOS % 0.5 % (1.5-5.0); GRAN # 11.89 (1.4-6.5); GRAN % 78.4 % (50.0-68.0); HEMOGLOBIN 14.2 g/dL (14.0-18.0); LYMPH % 12.9 % (22.0-35.0); MEAN CELL VOLUME 95.1 fl (80.0-105.0); MEAN CORPUSCULAR HEMOGLOBIN 30.5 pg (25.0-35.0); MEAN CORPUSCULAR HGB CONC 32.1 g/dl (31.0-37.0); MEAN PLATELET VOLUME 12.5 fl (7.0-11.0); MONO # 1.2 (0.1-0.6); MONO % 8.1 % (1.0-6.0); RBC 4.66 10^6/uL (3.5-6.1); RED CELL DISTRIBUTION WIDTH 15.9 % (11.5-14.5); WHITE BLOOD COUNT 15.1 10^3/ul (4.5-11.0)
[2017-04-24] MEDS: Enoxaparin 40 mg Syringe SC SCH (14:00)
[2017-04-24 14:01] LABS: IRON 65 ug/dL (45-180)
[2017-04-24 14:09] LABS: ALBUMIN 3.5 g/dL (3.0-4.8); ALT/SGPT 33 U/L (7-56); AST/SGOT 16 U/L (17-59); BLOOD UREA NITROGEN 35 mg/dL (7-21); CALCIUM 9.7 mg/dL (8.4-10.5); GFR AFRICAN-AMERICAN > 60; GFR NON-AFRICAN AMERICAN > 60; HDL CHOLESTEROL 37 mg/dL (29-60)
[2017-04-24 14:11] LABS: % IRON SATURATION 28 % (20-55); TOTAL IRON BINDING CAPACITY 230 ug/dL (261-462)
[2017-04-24 14:12] LABS: LDL CHOLESTEROL 43 mg/dL (0-129)
--- NOTE | 2017-04-24 16:54 | CP.PCM.PN ---
Subjective - Date & Time of Evaluation Date of Evaluation: 04/24/17 Time of Evaluation: 14:30 - Subjective Subjective: Infectious Disease Follow Up: April 24, 2017 46 yo AA male who is a resident at [facility] ([facility]) sent to [facility] for fevers up to 102.7 F, tachycardia, hypoxia, and AMS. The patient has an extensive past medical history that includes chronic obstructive lung disease, chronic pain syndrome, methadone dependence, diabetes mellitus, systemic lupus erythematous, and depression. The patient himself denies any medical symptoms now but states chills and weakness at [facility]. He also mentions occassional bloating of the abdomen for the past week but no increased flatulence or eructation. He states his appetite in good. Patient is wheelchair bound normally. He denies any burning on urination or increased urinary frequency. He denies shortness of breath. Still with leukocytosis but improving. No fevers. Cultures remain negative. Objective - Vital Signs/Intake and Output Vital Signs (last 24 hours): Temp Pulse Resp BP Pulse Ox 97.9 F 97 H 18 134/92 H 99 04/24/17 08:27 04/24/17 08:27 04/24/17 08:27 04/24/17 11:05 04/24/17 08:27 Intake and Output: 04/24/17 04/24/17 06:59 18:59 Intake Total 0 Output Total 600 Balance -600 - Medications Medications: Current Medications Acetaminophen (Tylenol 325mg Tab) 650 mg PO Q6H PRN PRN Reason: Fever >100.4 F Last Admin: 04/23/17 22:14 Dose: 650 mg Albuterol/Ipratropium (Duoneb 3 Mg/0.5 Mg (3 Ml) Ud) 3 ml IH Q2H PRN PRN Reason: Shortness of Breath Albuterol/Ipratropium (Duoneb 3 Mg/0.5 Mg (3 Ml) Ud) 3 ml IH [id number] [facility] Last Admin: 04/24/17 11:49 Dose: Not Given Alprazolam (Xanax) 0.25 mg PO HS PRN; Protocol PRN Reason: Anxiety Stop: 04/28/17 17:28 Arformoterol Tartrate (Brovana) 15 mcg IH [id number] [facility] Last Admin: 04/24/17 07:36 Dose: Not Given Aspirin (Aspirin Chewable) 81 mg PO DAILY [facility] Last Admin: 04/24/17 11:06 Dose: 81 mg Atorvastatin Calcium (Lipitor) 40 mg PO DIN [facility] Last Admin: 04/23/17 18:08 Dose: 40 mg Docusate Sodium (Colace) 100 mg PO TID [facility] Last Admin: 04/24/17 14:00 Dose: Not Given Enoxaparin Sodium (Lovenox) 40 mg SC DAILY [facility] PRN Reason: Protocol Furosemide (Lasix) 20 mg PO BID [facility] Last Admin: 04/24/17 11:05 Dose: 20 mg Doxycycline Hyclate 100 mg/ (Sodium Chloride) 100 mls @ 100 mls/hr IVPB Q12 [facility] PRN Reason: Protocol Stop: 04/28/17 22:01 Last Admin: 04/23/17 22:56 Dose: Not Given Vancomycin HCl (Vancomycin 500mg In Ns) 500 mg in 100 mls @ 200 mls/hr IVPB Q12 [facility] PRN Reason: Protocol Last Admin: 04/24/17 11:09 Dose: 200 mls/hr Meropenem 500 mg/ Sodium (Chloride) 50 mls @ 100 mls/hr IVPB Q8 [facility] PRN Reason: Protocol Last Admin: 04/24/17 05:23 Dose: Not Given Methylprednisolone (Solu-Medrol) 40 mg IVP Q8 [facility] Last Admin: 04/24/17 05:23 Dose: Not Given Montelukast Sodium (Singulair) 10 mg PO HS [facility] Last Admin: 04/23/17 22:21 Dose: 10 mg Nicotine (Nicoderm Cq) 1 patch TD DAILY [facility] Pantoprazole Sodium (Protonix Ec Tab) 40 mg PO 0600 [facility] Last Admin: 04/24/17 06:50 Dose: 40 mg - Labs Labs: 04/24/17 13:40 04/24/17 13:30 PT 14.3 SECONDS (9.4-12.5) H 04/21/17 16:05 INR 1.25 (0.93-1.08) H 04/21/17 16:05 APTT 30.9 Seconds (25.1-36.5) 04/21/17 16:05 - Constitutional Appears: Non-toxic, No Acute Distress, Chronically Ill - Head Exam Head Exam: ATRAUMATIC, NORMOCEPHALIC - Eye Exam Eye Exam: EOMI, PERRL Pupil Exam: NORMAL ACCOMODATION, PERRL - ENT Exam ENT Exam: Mucous Membranes Moist, Normal External Ear Exam, TM's Normal Bilaterally - Neck Exam Neck Exam: Full ROM, Normal Inspection - Respiratory Exam Respiratory Exam: Decreased Breath Sounds, NORMAL BREATHING PATTERN. absent: Rales, Rhonchi, Wheezes - Cardiovascular Exam Cardiovascular Exam: Irregular Rhythm, +S1, +S2 - GI/Abdominal Exam GI & Abdominal Exam: Soft, Normal Bowel Sounds. absent: Distended, Tenderness - Extremities Exam Extremities Exam: Full ROM, Normal Inspection - Neurological Exam Neurological Exam: Alert, Awake, CN II-XII Intact, Oriented x3 - Psychiatric Exam Psychiatric exam: Normal Affect, Normal Mood - Skin Skin Exam: Intact, Normal Color Assessment and Plan - Assessment and Plan (Free Text) Assessment: 46 yo AA male with presentation from [facility] at [facility] for AMS, fevers, tachycardia, and hypoxia down to 75% Oxygen saturation. The patient was given Levaquin, Vancomycin, Doxycycline, and Meropenem. ON Meropenem and Vancomycin now. Patient improving. Cultures with no specific growth at this time. Supportive care. Known to have some compliance issue with medications in the past. Awaiting final cultures. Supportive care. Continue on Meropenem and Vancomycin for now. Cultures to be finalized. So far no growth. Patient is currently afebrile. Leukocytosis improving. Thank you for allowing me to participate in the care of the patient, we will follow with you.
[2017-04-24 17:56] LABS: FOLATE > 20.0 ng/mL
--- NOTE | 2017-04-24 22:30 | PN ---
DATE: 04/24/2017 PULMONARY PROGRESS NOTE REFERRING PHYSICIAN: Dr. Hester. SUBJECTIVE: He is lying in the bed, head at 45 degrees. He is sleepy, arousable. Night was unremarkable, tolerated BiPAP well. No chest pain. No nausea. No vomiting or diarrhea. No leg pain or leg swelling. OBJECTIVE: GENERAL: In no acute distress. VITAL SIGNS: Temperature is 98, heart rate 64, respiratory rate is 18, blood pressure 110/76, pulse ox 99% on supplemental oxygen. HEENT: Moist mucous membrane. Crowded airway. NECK: Supple. No JVD. LUNGS: Has few crackles and rhonchi. HEART: S1 and S2. ABDOMEN: Soft, nontender. No organomegaly. EXTREMITIES: There is no edema. NEUROLOGIC: Sleepy, arousable. Follows simple command. MEDICATIONS: He is on aspirin 81 mg daily, Brovana inhaled twice a day, Colace 100 mg three times a day, doxycycline 100 mg twice a day, DuoNeb q.2 hours p.r.n., Lasix 20 mg twice a day, Lipitor 40 mg daily, Lovenox 40 mg daily, meropenem 500 mg IV q. 8 hours, Nicoderm patch daily, Protonix 40 mg daily, Singulair 10 mg daily, Solu-Medrol 40 mg q. 8 hours, Tylenol p.r.n., vancomycin 500 mg q. 12 hours, Xanax 0.25 mg at bedtime p.r.n. LABORATORY DATA: Shows hemoglobin 14.2, hematocrit 44.3, WBC 15.1, platelet is 148. Sodium 142, potassium 4.3, chloride 100, bicarbonate 38, BUN 35, creatinine 1.0, glucose 85, calcium is 9.7, phosphorus 3.5, magnesium is 2.0. Iron is 65. Total bili 0.4, AST 16, ALT 33, alk phos is 47. Albumin is 3.5. Microbiology, blood culture has been negative. Chest x-ray done this morning shows interval improvement without resolution, right lower lobe cavitary infiltrate. IMPRESSION AND PLAN: Status post respiratory failure requiring noninvasive ventilation with CO2 retention and hypoxemia, altered mental status changes, has systemic lupus, hypertension, chronic lung disease, history of pulmonary infiltrate, cavitary lesion, methadone dependent. I agree with the present treatment. Continue antibiotics, keep head at 45 degrees, avoid sedation. Encourage bilevel positive airway pressure use. Out of bed to chair if possible, physical therapy, need follow-up x-ray to assure the stability of infiltrate. Thank you and we will follow with you. Farheen Guillen MD
[2017-04-25] MEDS: Albuterol-Ipratrop 3 mg / 0.5 (3 ml) UD IH SCH ×7 (00:10→23:49)
[2017-04-25] MEDS: Pantoprazole 40 mg EC Tab PO SCH (05:52)
[2017-04-25] MEDS: MethylPREDNISolone 40 mg Vial IVP SCH ×4 (05:52→23:40)
[2017-04-25] MEDS: Meropenem 500 MG in Sodium Chloride 0.9% 50 ML IVPB SCH ×3 (05:54→21:43)
[2017-04-25 07:06] LABS: BASO # 0.01 K/mm3 (0.0-2.0); BASO % 0.1 % (0.0-3.0); GRAN # 10.07 (1.4-6.5); GRAN % 87.5 % (50.0-68.0); HEMOGLOBIN 15.5 g/dL (14.0-18.0); LYMPH % 8.3 % (22.0-35.0); MEAN CELL VOLUME 95.4 fl (80.0-105.0); MEAN CORPUSCULAR HEMOGLOBIN 30.9 pg (25.0-35.0); MEAN CORPUSCULAR HGB CONC 32.4 g/dl (31.0-37.0); MONO # 0.5 (0.1-0.6); MONO % 4.1 % (1.0-6.0); RBC 5.02 10^6/uL (3.5-6.1); RED CELL DISTRIBUTION WIDTH 15.7 % (11.5-14.5); WHITE BLOOD COUNT 11.5 10^3/ul (4.5-11.0)
[2017-04-25 07:24] LABS: ALB/GLOB RATIO 0.9 (1.1-1.8); ALBUMIN 3.8 g/dL (3.0-4.8); ALT/SGPT 23 U/L (7-56); AST/SGOT 25 U/L (17-59); BLOOD UREA NITROGEN 38 mg/dL (7-21); CALCIUM 10.2 mg/dL (8.4-10.5); GFR AFRICAN-AMERICAN > 60; GFR NON-AFRICAN AMERICAN > 60
[2017-04-25] MEDS: Arformoterol 15 mcg/2 ml Inh Sol IH SCH ×2 (07:27→19:17)
[2017-04-25 08:05] LABS: PLATELET COUNT 78 10^3/uL (120.0-450.0)
--- NOTE | 2017-04-25 09:13 | CP.PCM.PN ---
Subjective - Date & Time of Evaluation Date of Evaluation: 04/25/17 Time of Evaluation: 07:45 - Subjective Subjective: Seen and examined by me and Dr. Luque Reason for consultation and follow up: Bradycardia and on methadone. history of COPD,asthma, rheumatoid arthritis and lupus. Lying in bed,comfortable, no distress Verbalized to be okay, denies chest pain and denies shortness of breath. Verbalized to have his Methadone dose back. Objective - Vital Signs/Intake and Output Vital Signs (last 24 hours): Temp Pulse Resp BP Pulse Ox 98.6 F 52 L 18 157/94 H 95 04/25/17 08:30 04/25/17 08:30 04/25/17 08:30 04/25/17 08:30 04/25/17 08:30 Intake and Output: 04/25/17 04/25/17 06:59 18:59 Intake Total Output Total Balance - Medications Medications: Current Medications Acetaminophen (Tylenol 325mg Tab) 650 mg PO Q6H PRN PRN Reason: Fever >100.4 F Last Admin: 04/25/17 05:52 Dose: 650 mg Albuterol/Ipratropium (Duoneb 3 Mg/0.5 Mg (3 Ml) Ud) 3 ml IH Q2H PRN PRN Reason: Shortness of Breath Albuterol/Ipratropium (Duoneb 3 Mg/0.5 Mg (3 Ml) Ud) 3 ml IH [id number] [facility] Last Admin: 04/25/17 07:27 Dose: Not Given Alprazolam (Xanax) 0.25 mg PO HS PRN; Protocol PRN Reason: Anxiety Stop: 04/28/17 17:28 Last Admin: 04/24/17 17:05 Dose: 0.25 mg Arformoterol Tartrate (Brovana) 15 mcg IH [id number] [facility] Last Admin: 04/25/17 07:27 Dose: Not Given Aspirin (Aspirin Chewable) 81 mg PO DAILY [facility] Last Admin: 04/24/17 11:06 Dose: 81 mg Atorvastatin Calcium (Lipitor) 40 mg PO DIN [facility] Last Admin: 04/24/17 17:07 Dose: 40 mg Docusate Sodium (Colace) 100 mg PO TID [facility] Last Admin: 04/24/17 17:05 Dose: 100 mg Enoxaparin Sodium (Lovenox) 40 mg SC DAILY [facility] PRN Reason: Protocol Last Admin: 04/24/17 14:00 Dose: 40 mg Furosemide (Lasix) 20 mg PO BID [facility] Last Admin: 04/24/17 15:00 Dose: 20 mg Doxycycline Hyclate 100 mg/ (Sodium Chloride) 100 mls @ 100 mls/hr IVPB Q12 [facility] PRN Reason: Protocol Stop: 04/28/17 22:01 Last Admin: 04/24/17 21:50 Dose: 100 mls/hr Meropenem 500 mg/ Sodium (Chloride) 50 mls @ 100 mls/hr IVPB Q8 [facility] PRN Reason: Protocol Last Admin: 04/25/17 05:54 Dose: 100 mls/hr Methylprednisolone (Solu-Medrol) 40 mg IVP Q8 [facility] Last Admin: 04/25/17 05:52 Dose: 40 mg Montelukast Sodium (Singulair) 10 mg PO HS [facility] Last Admin: 04/24/17 21:46 Dose: 10 mg Nicotine (Nicoderm Cq) 1 patch TD DAILY [facility] Last Admin: 04/24/17 14:30 Dose: 1 patch Pantoprazole Sodium (Protonix Ec Tab) 40 mg PO 0600 [facility] Last Admin: 04/25/17 05:52 Dose: 40 mg - Labs Labs: 04/25/17 06:30 04/25/17 06:30 PT 14.3 SECONDS (9.4-12.5) H 04/21/17 16:05 INR 1.25 (0.93-1.08) H 04/21/17 16:05 APTT 30.9 Seconds (25.1-36.5) 04/21/17 16:05 - Constitutional Appears: No Acute Distress - Head Exam Head Exam: NORMAL INSPECTION Additional comments: Lying in bed, comfortable,no distress - Eye Exam Eye Exam: Normal appearance Pupil Exam: NORMAL ACCOMODATION - ENT Exam ENT Exam: Mucous Membranes Moist - Neck Exam Neck Exam: Normal Inspection - Respiratory Exam Respiratory Exam: Decreased Breath Sounds, Clear to Ausculation Bilateral, NORMAL BREATHING PATTERN - Cardiovascular Exam Cardiovascular Exam: +S1, +S2 Additional comments: Bradycardic 48/min to 60/min - GI/Abdominal Exam GI & Abdominal Exam: Soft, Normal Bowel Sounds - Extremities Exam Extremities Exam: Normal Capillary Refill - Neurological Exam Neurological Exam: Alert, Awake, Oriented x3 - Psychiatric Exam Psychiatric exam: Flat Affect, Normal Mood - Skin Skin Exam: Dry, Intact, Normal Color, Warm Assessment and Plan - Assessment and Plan (Free Text) Assessment: Impression: Bradycardia and on methadone. history of COPD,asthma, rheumatoid arthritis and lupus. Plan: Given Methadone 50 mg po 04/24/17 half of the usual dose Still on bradycardia Blood pressure stable Calm today than yesterday Continue ASA and Lipitor, and Lasix Ordered Echocardiogram to evaluate EF Will follow Plan and treatment reviewed with Dr. Luque
[2017-04-25] MEDS: Enoxaparin 40 mg Syringe SC SCH (10:12)
--- NOTE | 2017-04-25 18:19 | CP.PCM.PN ---
Subjective - Date & Time of Evaluation Date of Evaluation: 04/25/17 Time of Evaluation: 16:30 - Subjective Subjective: Infectious Disease Follow Up: April 25, 2017 46 yo AA male who is a resident at [facility] ([facility]) sent to [facility] for fevers up to 102.7 F, tachycardia, hypoxia, and AMS. The patient has an extensive past medical history that includes chronic obstructive lung disease, chronic pain syndrome, methadone dependence, diabetes mellitus, systemic lupus erythematous, and depression. The patient himself denies any medical symptoms now but states chills and weakness at [facility]. He also mentions occassional bloating of the abdomen for the past week but no increased flatulence or eructation. He states his appetite in good. Patient is wheelchair bound normally. He denies any burning on urination or increased urinary frequency. He denies shortness of breath. Leukocytosis is improving and has nearly normalized. Still with leukocytosis but nearly improved. No fevers. Cultures remain negative. Objective - Vital Signs/Intake and Output Vital Signs (last 24 hours): Temp Pulse Resp BP Pulse Ox 98.3 F 58 L 19 131/88 97 04/25/17 12:00 04/25/17 12:00 04/25/17 12:00 04/25/17 12:00 04/25/17 12:00 Intake and Output: 04/25/17 04/25/17 06:59 18:59 Intake Total Output Total Balance - Medications Medications: Current Medications Acetaminophen (Tylenol 325mg Tab) 650 mg PO Q6H PRN PRN Reason: Fever >100.4 F Last Admin: 04/25/17 05:52 Dose: 650 mg Albuterol/Ipratropium (Duoneb 3 Mg/0.5 Mg (3 Ml) Ud) 3 ml IH Q2H PRN PRN Reason: Shortness of Breath Albuterol/Ipratropium (Duoneb 3 Mg/0.5 Mg (3 Ml) Ud) 3 ml IH [id number] Last Admin: 04/25/17 16:28 Dose: Not Given Alprazolam (Xanax) 0.25 mg PO HS PRN; Protocol PRN Reason: Anxiety Stop: 04/28/17 17:28 Last Admin: 03/11/18 15:23 Dose: 0.25 mg Arformoterol Tartrate (Brovana) 15 mcg IH [id number] [facility] Last Admin: 04/25/17 07:27 Dose: Not Given Aspirin (Aspirin Chewable) 81 mg PO DAILY [facility] Last Admin: 04/25/17 10:11 Dose: 81 mg Atorvastatin Calcium (Lipitor) 40 mg PO DIN [facility] Last Admin: 04/24/17 17:07 Dose: 40 mg Docusate Sodium (Colace) 100 mg PO TID [facility] Last Admin: 04/25/17 15:17 Dose: Not Given Enoxaparin Sodium (Lovenox) 40 mg SC DAILY [facility] PRN Reason: Protocol Last Admin: 04/25/17 10:12 Dose: 40 mg Furosemide (Lasix) 20 mg PO BID [facility] Last Admin: 04/25/17 10:09 Dose: 20 mg Doxycycline Hyclate 100 mg/ (Sodium Chloride) 100 mls @ 100 mls/hr IVPB Q12 [facility] PRN Reason: Protocol Stop: 04/28/17 22:01 Last Admin: 04/25/17 10:12 Dose: 100 mls/hr Meropenem 500 mg/ Sodium (Chloride) 50 mls @ 100 mls/hr IVPB Q8 [facility] PRN Reason: Protocol Last Admin: 04/25/17 15:14 Dose: 100 mls/hr Methadone HCl (Methadone) 50 mg PO DAILY [facility] Last Admin: 04/25/17 11:38 Dose: 50 mg Methylprednisolone (Solu-Medrol) 40 mg IVP Q8 [facility] Last Admin: 04/25/17 15:16 Dose: 40 mg Montelukast Sodium (Singulair) 10 mg PO HS [facility] Last Admin: 04/24/17 21:46 Dose: 10 mg Nicotine (Nicoderm Cq) 1 patch TD DAILY [facility] Last Admin: 04/25/17 10:11 Dose: 1 patch Pantoprazole Sodium (Protonix Ec Tab) 40 mg PO 0600 [facility] Last Admin: 04/25/17 05:52 Dose: 40 mg - Labs Labs: 04/25/17 06:30 04/25/17 06:30 PT 14.3 SECONDS (9.4-12.5) H 04/21/17 16:05 INR 1.25 (0.93-1.08) H 04/21/17 16:05 APTT 30.9 Seconds (25.1-36.5) 04/21/17 16:05 - Constitutional Appears: Non-toxic, No Acute Distress, Chronically Ill - Head Exam Head Exam: ATRAUMATIC, NORMOCEPHALIC - Eye Exam Eye Exam: EOMI, PERRL Pupil Exam: NORMAL ACCOMODATION, PERRL - ENT Exam ENT Exam: Mucous Membranes Moist, Normal External Ear Exam, TM's Normal Bilaterally - Neck Exam Neck Exam: Full ROM, Normal Inspection - Respiratory Exam Respiratory Exam: Decreased Breath Sounds, NORMAL BREATHING PATTERN. absent: Rales, Rhonchi, Wheezes - Cardiovascular Exam Cardiovascular Exam: Irregular Rhythm, +S1, +S2 - GI/Abdominal Exam GI & Abdominal Exam: Soft, Normal Bowel Sounds. absent: Distended, Tenderness - Extremities Exam Extremities Exam: Full ROM, Normal Inspection - Neurological Exam Neurological Exam: Alert, Awake, CN II-XII Intact, Oriented x3 - Psychiatric Exam Psychiatric exam: Normal Affect, Normal Mood - Skin Skin Exam: Intact, Normal Color Assessment and Plan - Assessment and Plan (Free Text) Assessment: 46 yo AA male with presentation from [facility] for AMS, fevers, tachycardia, and hypoxia down to 75% Oxygen saturation. The patient was given Levaquin, Vancomycin, Doxycycline, and Meropenem. ON Meropenem and Vancomycin now. Patient improving. Cultures with no specific growth at this time. Supportive care. Known to have some compliance issue with medications in the past. Awaiting final cultures. Supportive care. Continue on Meropenem and Vancomycin for now. Cultures no growth at 4 days. Patient is currently afebrile. Leukocytosis improving and nearly normalized. Look to complete between 7 to 10 days of antibiotic therapy. Thank you for allowing me to participate in the care of the patient, we will follow with you.
--- NOTE | 2017-04-25 23:35 | PN ---
DATE: SUBJECTIVE: Patient is seen and examined at bedside. He does not look like very happy, want his high dose of methadone, history of bradycardia, on methadone, history of COPD. He came with shortness of breath, coughing, very lethargic. Right now, does not look like in distress. No fever, no chills. Coughing is better. Shortness of breath is better. PHYSICAL EXAMINATION VITAL SIGNS: Temperature 98.6, pulse 52 , respiratory rate 18, blood pressure 137/94 , pulse oximetry 95%. HEENT: Head normocephalic, atraumatic. Eyes, PERRLA. Extraocular muscles intact. Conjunctivae clear. Nose patent. NECK: Supple. No carotid bruit, JVD, or thyromegaly. CHEST: Bilaterally symmetrical. HEART: S1 and S2 positive. LUNGS: Clear to auscultation. ABDOMEN: Soft. Bowel sounds present. No organomegaly. EXTREMITIES: No edema. No cyanosis. NEUROLOGIC: Patient is awake, alert. Moving all 4 extremities. No focal deficit. MEDICATIONS: Tylenol, DuoNeb, Xanax, Brovana, aspirin, Lipitor, Lovenox, Lasix, meropenem, Solu-Medrol, Singulair, Protonix. LABORATORY DATA: White blood cell 11.5, hemoglobin 15.5, hematocrit 47.9, platelets 78. Sodium 146, potassium 5.1, BUN 38, creatinine 1.0, glucose 99. ASSESSMENT AND PLAN: Mr. Nic Juarez, a 46-year-old male, with leukocytosis, thrombocytopenia, hyperkalemia, hypernatremia, renal insufficiency, history of asthma, chronic obstructive pulmonary disease, has bradycardia, on methadone, history of rheumatoid arthritis, lupus, bradycardiac. Blood pressure is stable. Ordered echocardiography to evaluate ejection fraction. Continue aspirin, Lipitor, half of the dose of the methadone, getting antibiotics, out of bed, physical therapy, patient has history of smoking, urged to quit, history of respiratory failure requiring noninvasive ventilation with CO2 retention and hypoxemia, altered mental status, history of pulmonary infiltrates, cavitary lesion. Encouraged for bilevel positive airway pressure use, out of bed to the chair if possible, physical therapy. We will follow up. Terri Hester MD [facility] # [id number] [place]
--- NOTE | 2017-04-25 23:57 | PN ---
DATE: 04/25/2017 PULMONARY PROGRESS NOTE REFERRING PHYSICIAN: Terri Hester MD. SUBJECTIVE: He is lying in the bed, head at 45 degrees. Fully awake. Family, sister is bedside. Tolerated BiPAP well. No headache. No rhinitis. No significant cough. No nausea. No vomiting. No diarrhea. No leg pain or leg swelling. OBJECTIVE: GENERAL: In no acute distress. VITAL SIGNS: Temperature is 98, heart rate is 58, respiratory rate is 20, blood pressure 130/70, pulse ox 97% on 2 L nasal cannula. HEENT: Moist mucous membranes. Crowded airway. Mallampati score is 4. NECK: Supple. No JVD. LUNGS: Have a fair airflow with rhonchi. HEART: S1 and S2. ABDOMEN: Soft, nontender. No organomegaly. EXTREMITIES: There is no edema. NEUROLOGIC: Awake and alert. Follows simple command. MEDICATIONS: He is on aspirin 81 mg daily, Brovana inhaled twice a day, Colace 100 mg three times a day, doxycycline 100 mg twice a day, DuoNeb q. 4 hours, Lasix 20 mg twice a day, Lipitor 40 mg daily, Lovenox 40 mg daily, meropenem 1 g IV q. 8 hours, methadone 50 mg daily, Nicoderm patch daily, Protonix 40 mg daily, Singulair 10 mg daily, Solu-Medrol 40 mg q. 8 hours, Tylenol p.r.n., Xanax 0.25 mg at bedtime p.r.n. LABORATORY DATA: Shows hemoglobin 15.5, hematocrit 47.9, WBC 11.5, platelet is 78. Sodium 143, potassium 5.1, chloride 97, bicarbonate 37, BUN 38, creatinine 1.0, glucose 99, calcium is 10.2, phosphorus 6.2, magnesium 2.0, AST 25, ALT 23, alk phos is 56. Albumin is 3.8. TSH 0.65. Microbiology: Blood culture has been negative. Chest x-ray done yesterday shows improved infiltrate. Still has a right lower lobe cavitary infiltrate. IMPRESSION AND PLAN: Status post respiratory failure requiring noninvasive ventilation with CO2 retention and hypoxemia with altered mental status. Responded well to noninvasive ventilation, steroids, antibiotics. Has a lupus, hypertension, chronic lung disease, history of pulmonary infiltrate, has a cavitary lesion, methadone dependent. Seen by Cardiology and Infectious Diseases. Continue antibiotic. Disease Solu-Medrol. Spoke to the patient and the patient's family at bedside. All the questions answered. The patient agreeable to decrease methadone doses. Out of bed to chair. Will benefit from physical therapy. Aspiration precaution. Will need followup x-ray to assure the stability of pulmonary infiltrate. Thank you and we will follow with you. Farheen Guillen MD
[2017-04-26] MEDS: Albuterol-Ipratrop 3 mg / 0.5 (3 ml) UD IH SCH ×5 (05:12→19:46)
[2017-04-26] MEDS: Meropenem 500 MG in Sodium Chloride 0.9% 50 ML IVPB SCH ×3 (05:42→21:28)
[2017-04-26] MEDS: Pantoprazole 40 mg EC Tab PO SCH (05:43)
[2017-04-26] MEDS: Arformoterol 15 mcg/2 ml Inh Sol IH SCH ×2 (07:19→19:47)
--- NOTE | 2017-04-26 07:42 | CP.PCM.PN ---
Subjective - Date & Time of Evaluation Date of Evaluation: 04/26/17 Time of Evaluation: 06:15 - Subjective Subjective: Seen and examined by me and Dr. Serrano Reason for consultation and follow up: bradycardia and on methadone, Lying in bed, denies shortness of breath,denies chest pain Objective - Vital Signs/Intake and Output Vital Signs (last 24 hours): Temp Pulse Resp BP Pulse Ox 98.3 F 58 L 19 130/70 97 04/25/17 12:00 04/25/17 12:00 04/25/17 12:00 04/25/17 18:32 04/25/17 12:00 Intake and Output: 04/26/17 04/26/17 06:59 18:59 Output Total 1150 Balance -1150 - Medications Medications: Current Medications Acetaminophen (Tylenol 325mg Tab) 650 mg PO Q6H PRN PRN Reason: Fever >100.4 F Last Admin: 04/25/17 21:44 Dose: 650 mg Albuterol/Ipratropium (Duoneb 3 Mg/0.5 Mg (3 Ml) Ud) 3 ml IH Q2H PRN PRN Reason: Shortness of Breath Albuterol/Ipratropium (Duoneb 3 Mg/0.5 Mg (3 Ml) Ud) 3 ml IH [id number] [facility] Last Admin: 04/26/17 07:19 Dose: Not Given Alprazolam (Xanax) 0.25 mg PO HS PRN; Protocol PRN Reason: Anxiety Stop: 04/28/17 17:28 Last Admin: 04/25/17 15:23 Dose: 0.25 mg Arformoterol Tartrate (Brovana) 15 mcg IH [id number] [facility] Last Admin: 04/26/17 07:19 Dose: Not Given Aspirin (Aspirin Chewable) 81 mg PO DAILY [facility] Last Admin: 04/25/17 10:11 Dose: 81 mg Atorvastatin Calcium (Lipitor) 40 mg PO DIN [facility] Last Admin: 04/25/17 18:31 Dose: 40 mg Docusate Sodium (Colace) 100 mg PO TID [facility] Last Admin: 04/25/17 18:30 Dose: Not Given Enoxaparin Sodium (Lovenox) 40 mg SC DAILY [facility] PRN Reason: Protocol Last Admin: 04/25/17 10:12 Dose: 40 mg Furosemide (Lasix) 20 mg PO BID [facility] Last Admin: 04/25/17 18:32 Dose: 20 mg Doxycycline Hyclate 100 mg/ (Sodium Chloride) 100 mls @ 100 mls/hr IVPB Q12 [facility] PRN Reason: Protocol Stop: 04/28/17 22:01 Last Admin: 04/25/17 21:48 Dose: 100 mls/hr Meropenem 500 mg/ Sodium (Chloride) 50 mls @ 100 mls/hr IVPB Q8 [facility] PRN Reason: Protocol Last Admin: 04/26/17 05:42 Dose: 100 mls/hr Methadone HCl (Methadone) 50 mg PO DAILY [facility] Last Admin: 04/25/17 11:38 Dose: 50 mg Methylprednisolone (Solu-Medrol) 40 mg IVP Q12 [facility] Last Admin: 04/25/17 23:40 Dose: Not Given Montelukast Sodium (Singulair) 10 mg PO HS [facility] Last Admin: 04/25/17 21:45 Dose: 10 mg Nicotine (Nicoderm Cq) 1 patch TD DAILY [facility] Last Admin: 04/25/17 10:11 Dose: 1 patch Pantoprazole Sodium (Protonix Ec Tab) 40 mg PO 0600 [facility] Last Admin: 04/26/17 05:43 Dose: 40 mg - Labs Labs: 04/25/17 06:30 04/25/17 06:30 PT 14.3 SECONDS (9.4-12.5) H 04/21/17 16:05 INR 1.25 (0.93-1.08) H 04/21/17 16:05 APTT 30.9 Seconds (25.1-36.5) 04/21/17 16:05 - Constitutional Appears: No Acute Distress - Head Exam Head Exam: NORMAL INSPECTION, NORMOCEPHALIC - Eye Exam Eye Exam: Normal appearance Pupil Exam: NORMAL ACCOMODATION - ENT Exam ENT Exam: Mucous Membranes Dry, Normal Exam - Neck Exam Neck Exam: Normal Inspection - Respiratory Exam Respiratory Exam: Rhonchi, NORMAL BREATHING PATTERN - Cardiovascular Exam Cardiovascular Exam: Bradycardia, +S1, +S2 - GI/Abdominal Exam GI & Abdominal Exam: Soft, Normal Bowel Sounds - Extremities Exam Extremities Exam: Normal Capillary Refill Assessment and Plan - Assessment and Plan (Free Text) Assessment: Impression: bradycardia,on methadone, rheumatoid arthritis, COPD,asthma,lupus Plan: Echocardiogram ordered hopefully done today Still bradycardic at rest or sleep ( inspite of lower dose of Methadone) When awake, heart rate goes up to 60's-70's Will order Holter Monitor to evaluate Continue current medication Will follow up Treatment and plan discussed with Dr. Serrano
[2017-04-26] MEDS: Enoxaparin 40 mg Syringe SC SCH (10:18)
[2017-04-26] MEDS: MethylPREDNISolone 40 mg Vial IVP SCH ×2 (10:20→21:29)
--- NOTE | 2017-04-26 15:09 | CP.PCM.PN ---
<Sherice Huizar - Last Filed: 04/26/17 15:06> Subjective - Date & Time of Evaluation Date of Evaluation: 04/26/17 Time of Evaluation: 11:40 - Subjective Subjective: Chief Complaint: Pain 46 yr male resident of [facility] w/ history of COPD chronic pain syndrome, methadone dependence, DM II, SLE, Depression, HTN. Pt admitted to [facility] for AMS, fevers, tachycardia, & hypoxia 75% pulse oximetry. Pt stablized in CCU and tranfered to medical floor after having methadone dosage tapered down. CCU with no distress. Today, seen on medical unit asking to receive more methadone for his generalized pain. Pt re-educated on the episodes of bradycardia where methadone had to be decreased. Pt denies any fever, chills, chest pain, shortness of breath, diarrhea, constipation, paresthesia, or urinary changes. Objective - Vital Signs/Intake and Output Vital Signs (last 24 hours): Temp Pulse Resp BP Pulse Ox 97.9 F 46 L 18 148/92 H 98 04/26/17 08:23 04/26/17 08:23 04/26/17 08:23 04/26/17 10:18 04/26/17 08:23 Intake and Output: 04/26/17 04/26/17 06:59 18:59 Output Total 1150 Balance -1150 - Medications Medications: Current Medications Acetaminophen (Tylenol 325mg Tab) 650 mg PO Q6H PRN PRN Reason: Fever >100.4 F Last Admin: 04/25/17 21:44 Dose: 650 mg Albuterol/Ipratropium (Duoneb 3 Mg/0.5 Mg (3 Ml) Ud) 3 ml IH Q2H PRN PRN Reason: Shortness of Breath Albuterol/Ipratropium (Duoneb 3 Mg/0.5 Mg (3 Ml) Ud) 3 ml IH [id number] [facility] Last Admin: 04/26/17 11:09 Dose: Not Given Alprazolam (Xanax) 0.25 mg PO HS PRN; Protocol PRN Reason: Anxiety Stop: 04/28/17 17:28 Last Admin: 04/25/17 15:23 Dose: 0.25 mg Arformoterol Tartrate (Brovana) 15 mcg IH [id number] [facility] Last Admin: 04/26/17 07:19 Dose: Not Given Aspirin (Aspirin Chewable) 81 mg PO DAILY [facility] Last Admin: 04/26/17 10:18 Dose: 81 mg Atorvastatin Calcium (Lipitor) 40 mg PO DIN [facility] Last Admin: 04/25/17 18:31 Dose: 40 mg Docusate Sodium (Colace) 100 mg PO TID [facility] Last Admin: 04/26/17 10:18 Dose: 100 mg Doxycycline Hyclate (Doryx) 100 mg PO Q12 [facility] Enoxaparin Sodium (Lovenox) 40 mg SC DAILY [facility] PRN Reason: Protocol Last Admin: 04/26/17 10:18 Dose: 40 mg Furosemide (Lasix) 20 mg PO BID [facility] Last Admin: 04/26/17 10:18 Dose: 20 mg Meropenem 500 mg/ Sodium (Chloride) 50 mls @ 100 mls/hr IVPB Q8 [facility] PRN Reason: Protocol Last Admin: 04/26/17 05:42 Dose: 100 mls/hr Methadone HCl (Methadone) 50 mg PO DAILY [facility] Last Admin: 04/26/17 10:19 Dose: 50 mg Methylprednisolone (Solu-Medrol) 40 mg IVP Q12 [facility] Last Admin: 04/26/17 10:20 Dose: 40 mg Montelukast Sodium (Singulair) 10 mg PO HS [facility] Last Admin: 04/25/17 21:45 Dose: 10 mg Nicotine (Nicoderm Cq) 1 patch TD DAILY [facility] Last Admin: 04/26/17 10:24 Dose: 1 patch Pantoprazole Sodium (Protonix Ec Tab) 40 mg PO 0600 [facility] Last Admin: 04/26/17 05:43 Dose: 40 mg - Labs Labs: 04/25/17 06:30 04/25/17 06:30 PT 14.3 SECONDS (9.4-12.5) H 04/21/17 16:05 INR 1.25 (0.93-1.08) H 04/21/17 16:05 APTT 30.9 Seconds (25.1-36.5) 04/21/17 16:05 - Constitutional Appears: Well, No Acute Distress - Head Exam Head Exam: ATRAUMATIC, NORMAL INSPECTION, NORMOCEPHALIC - Eye Exam Eye Exam: EOMI, Normal appearance, PERRL Pupil Exam: NORMAL ACCOMODATION, PERRL - ENT Exam ENT Exam: Mucous Membranes Moist, Normal Exam - Neck Exam Neck Exam: Full ROM, Normal Inspection. absent: Lymphadenopathy - Respiratory Exam Respiratory Exam: Clear to Ausculation Bilateral, NORMAL BREATHING PATTERN - Cardiovascular Exam Cardiovascular Exam: Bradycardia, +S1, +S2 - GI/Abdominal Exam GI & Abdominal Exam: Distended, Firm - Extremities Exam Extremities Exam: Full ROM, Normal Capillary Refill, Normal Inspection. absent : Joint Swelling, Pedal Edema - Back Exam Back Exam: NORMAL INSPECTION - Neurological Exam Neurological Exam: Alert, Awake, Oriented x3 Additional comments: nonambulatory - Psychiatric Exam Psychiatric exam: Depressed, Flat Affect - Skin Skin Exam: Dry, Intact, Normal Color, Warm Assessment and Plan (1) Hyperkalemia Status: Acute (2) Dehydration Status: Acute (3) Hyperthyroidism Status: Acute (4) Hematuria Status: Acute (5) Altered mental status Status: Acute (6) Hypercapnia Status: Acute (7) Pneumonia Status: Acute (8) Anemia Status: Acute (9) Fever Status: Acute (10) Leukocytosis Status: Acute (11) Hyperphosphatemia Status: Acute - Assessment and Plan (Free Text) Plan: ECHO PENDING. Labs ordered. Nicotine patch applied. Culture: blood NEGATIVE. Pneumonia treatment: PO doxycycline. IV merrem. IV solumedryl. VTE/GI prophylaxis. PT/OT. Cpap/Bipap q HS. pain management: methadone PO Consults: Cardio - Dr. Rebel Muniz - Dr. Guillen ID - Dr. Moffett Reviwed: CXR = 04/24 - improvement w/o resolution RLL cavitary infiltrate ECG = 04/23 - ABNORMAL, SB w/ marked sinus arrhythmia, R bills axis, pulmonary disease pattern, nonspecific T wave abnormality CXR = 04/22 - stable R basilar infiltrate No pleural effusion or pneumothorax bilaterally no L sided infiltrate CXR = extensive R loer lobe infiltrate/mass/consolidation. represents a chronic or reccurrent process CT head = severe chronic L frontal and bilateral maxillary sinusitis ECG = ABNORMAL, ST, L posterior fascicular block <Terri Hester - Last Filed: 04/26/17 21:56> Objective - Vital Signs/Intake and Output Vital Signs (last 24 hours): Temp Pulse Resp BP Pulse Ox 98.4 F 54 L 18 142/89 97 04/26/17 16:00 04/26/17 18:00 04/26/17 16:00 04/26/17 17:14 04/26/17 16:00 Intake and Output: 04/26/17 04/27/17 18:59 06:59 Intake Total 480 Output Total 1300 Balance -820 - Medications Medications: Current Medications Acetaminophen (Tylenol 325mg Tab) 650 mg PO Q6H PRN PRN Reason: Fever >100.4 F Last Admin: 04/26/17 21:37 Dose: 650 mg Albuterol/Ipratropium (Duoneb 3 Mg/0.5 Mg (3 Ml) Ud) 3 ml IH Q2H PRN PRN Reason: Shortness of Breath Albuterol/Ipratropium (Duoneb 3 Mg/0.5 Mg (3 Ml) Ud) 3 ml IH [id number] [facility] Last Admin: 04/26/17 19:46 Dose: Not Given Alprazolam (Xanax) 0.25 mg PO HS PRN; Protocol PRN Reason: Anxiety Stop: 04/28/17 17:28 Last Admin: 04/26/17 15:36 Dose: 0.25 mg Arformoterol Tartrate (Brovana) 15 mcg IH [id number] [facility] Last Admin: 04/26/17 19:47 Dose: Not Given Aspirin (Aspirin Chewable) 81 mg PO DAILY [facility] Last Admin: 04/26/17 10:18 Dose: 81 mg Atorvastatin Calcium (Lipitor) 40 mg PO DIN [facility] Last Admin: 04/26/17 17:14 Dose: 40 mg Docusate Sodium (Colace) 100 mg PO TID [facility] Last Admin: 04/26/17 17:14 Dose: 100 mg Doxycycline Hyclate (Doryx) 100 mg PO Q12 [facility] Last Admin: 04/26/17 21:25 Dose: 100 mg Enoxaparin Sodium (Lovenox) 40 mg SC DAILY [facility] PRN Reason: Protocol Last Admin: 04/26/17 10:18 Dose: 40 mg Furosemide (Lasix) 20 mg PO DAILY [facility] Meropenem 500 mg/ Sodium (Chloride) 50 mls @ 100 mls/hr IVPB Q8 [facility] PRN Reason: Protocol Last Admin: 04/26/17 21:28 Dose: 100 mls/hr Methadone HCl (Methadone) 50 mg PO DAILY [facility] Last Admin: 04/26/17 10:19 Dose: 50 mg Methylprednisolone (Solu-Medrol) 20 mg IVP Q12 [facility] Last Admin: 04/26/17 21:29 Dose: 20 mg Montelukast Sodium (Singulair) 10 mg PO HS [facility] Last Admin: 04/26/17 21:29 Dose: 10 mg Nicotine (Nicoderm Cq) 1 patch TD DAILY [facility] Last Admin: 04/26/17 10:24 Dose: 1 patch Pantoprazole Sodium (Protonix Ec Tab) 40 mg PO 0600 [facility] Last Admin: 04/26/17 05:43 Dose: 40 mg - Labs Labs: 04/25/17 06:30 04/25/17 06:30 PT 14.3 SECONDS (9.4-12.5) H 04/21/17 16:05 INR 1.25 (0.93-1.08) H 04/21/17 16:05 APTT 30.9 Seconds (25.1-36.5) 04/21/17 16:05 Assessment and Plan - Assessment and Plan (Free Text) Plan: 46 yr male resident of [facility] w/ history of COPD chronic pain syndrome, methadone dependence, DM II, SLE, Depression, HTN. Pt admitted to [facility] for AMS, fevers, tachycardia, & hypoxia 75% pulse oximetry. Pt stablized in CCU and tranfered to medical floor after having methadone dosage tapered down. CCU with no distress. Today, seen on medical unit asking to receive more methadone for his generalized pain. Pt re-educated on the episodes of bradycardia where methadone had to be decreased. Pt denies any fever, chills, chest pain, shortness of breath, diarrhea, constipation, paresthesia, or urinary changes. pt is seen and examined at bed side , looking comfortable , chart , meds and labs noted , will f/u
--- NOTE | 2017-04-26 16:26 | PN ---
DATE: 04/24/2017 SUBJECTIVE: Patient is a 46-year-old male. Patient is seen and examined at the bedside. Looks angry, wants to use methadone and pain medications. The patient was having bradycardia, on methadone, but I called assisted today, [facility] C floor. His baseline heart rate was like around about 100, may be with a combination of sepsis and high dose of methadone on the case. Today, heart rate was going in 60s as per nurse that moment and patient is going for echocardiography. No nausea, vomiting, or diarrhea. Urged to get antibiotics. Because of not getting methadone, he was refusing everything, but I talked to him length of time and made him agreeable to get at least IV antibiotics, continue oxygen, and now I told nurse to put IV line, start antibiotics. No fever, no chills. No headache, no dizziness. PHYSICAL EXAMINATION: VITAL SIGNS: Temperature 97.9, pulse 48, respiratory rate 20, blood pressure 135/88, pulse oximetry 93. HEENT: Head: Normocephalic, atraumatic. Eyes: PERRLA. Extraocular muscles intact. Conjunctivae clear. Nose: Patent. Mucous membrane moist. NECK: Supple. No carotid bruit. No JVD or thyromegaly. CHEST: Bilaterally symmetrical. HEART: S1, S2 positive. LUNGS: Positive wheezing bilaterally. ABDOMEN: Soft. Bowel sounds present. No organomegaly. EXTREMITIES: No edema. No cyanosis. NEUROLOGIC: Patient is awake and alert. Moving all four extremities. No focal deficits. MEDICATIONS: Tylenol, DuoNeb, Xanax, Brovana, aspirin, Lipitor, Colace, Lasix, doxycycline, vancomycin, meropenem, Solu-Medrol, Singulair, Nicoderm, pantoprazole. LABORATORY DATA: White blood cells 23.5, hemoglobin 14.1, hematocrit 43.2, platelets 146. Sodium 142, potassium 5.2, BUN noted, creatinine 0.9, glucose 119. ASSESSMENT AND PLAN: a 46-year-old male with leukocytosis, hyperkalemia, hyperglycemia, bradycardia, on methadone, history of chronic obstructive pulmonary disease, asthma, rheumatoid arthritis, lupus, left knee pain. Heart rate was in the 30s to 40s early in the morning, now it ranges to 60s. Patient is supposed to go for echocardiography to evaluate ejection fraction and cardiac function. Patient is noncompliant, heavy smoker; we will give him nicotine patch. Status post requiring noninvasive ventilation , hypoxemia, pigmental changes, noncompliant,. Education done. Gastrointestinal and deep venous thrombosis prophylaxis. Appreciate Dr. Guillen's input. We will follow up. Terri Hester MD MTDD
--- NOTE | 2017-04-26 18:08 | CP.PCM.PN ---
Subjective - Date & Time of Evaluation Date of Evaluation: 04/26/17 Time of Evaluation: 16:00 - Subjective Subjective: Infectious Disease Follow Up: April 26, 2017 46 yo AA male who is a resident at [facility] ([facility]) sent to [facility] for fevers up to 102.7 F, tachycardia, hypoxia, and AMS. The patient has an extensive past medical history that includes chronic obstructive lung disease, chronic pain syndrome, methadone dependence, diabetes mellitus, systemic lupus erythematous, and depression. The patient himself denies any medical symptoms now but states chills and weakness at [facility]. He also mentions occassional bloating of the abdomen for the past week but no increased flatulence or eructation. He states his appetite in good. Patient is wheelchair bound normally. He denies any burning on urination or increased urinary frequency. He denies shortness of breath. Leukocytosis is improving and has nearly normalized. Still with leukocytosis but nearly improved. No fevers. Cultures remain negative. He still described himself as having a lot of pain. Objective - Vital Signs/Intake and Output Vital Signs (last 24 hours): Temp Pulse Resp BP Pulse Ox 97.9 F 46 L 18 142/89 98 04/26/17 08:23 04/26/17 08:23 04/26/17 08:23 04/26/17 17:14 04/26/17 08:23 Intake and Output: 04/26/17 04/26/17 06:59 18:59 Intake Total 480 Output Total 1150 1300 Balance -1150 -820 - Medications Medications: Current Medications Acetaminophen (Tylenol 325mg Tab) 650 mg PO Q6H PRN PRN Reason: Fever >100.4 F Last Admin: 04/25/17 21:44 Dose: 650 mg Albuterol/Ipratropium (Duoneb 3 Mg/0.5 Mg (3 Ml) Ud) 3 ml IH Q2H PRN PRN Reason: Shortness of Breath Albuterol/Ipratropium (Duoneb 3 Mg/0.5 Mg (3 Ml) Ud) 3 ml IH [id number] [facility] Last Admin: 04/26/17 16:17 Dose: Not Given Alprazolam (Xanax) 0.25 mg PO HS PRN; Protocol PRN Reason: Anxiety Stop: 04/28/17 17:28 Last Admin: 04/26/17 15:36 Dose: 0.25 mg Arformoterol Tartrate (Brovana) 15 mcg IH [id number] [facility] Last Admin: 04/26/17 07:19 Dose: Not Given Aspirin (Aspirin Chewable) 81 mg PO DAILY [facility] Last Admin: 04/26/17 10:18 Dose: 81 mg Atorvastatin Calcium (Lipitor) 40 mg PO DIN [facility] Last Admin: 04/26/17 17:14 Dose: 40 mg Docusate Sodium (Colace) 100 mg PO TID [facility] Last Admin: 04/26/17 17:14 Dose: 100 mg Doxycycline Hyclate (Doryx) 100 mg PO Q12 [facility] Enoxaparin Sodium (Lovenox) 40 mg SC DAILY [facility] PRN Reason: Protocol Last Admin: 04/26/17 10:18 Dose: 40 mg Furosemide (Lasix) 20 mg PO BID [facility] Last Admin: 04/26/17 17:14 Dose: 20 mg Meropenem 500 mg/ Sodium (Chloride) 50 mls @ 100 mls/hr IVPB Q8 [facility] PRN Reason: Protocol Last Admin: 04/26/17 15:29 Dose: 100 mls/hr Methadone HCl (Methadone) 50 mg PO DAILY [facility] Last Admin: 04/26/17 10:19 Dose: 50 mg Methylprednisolone (Solu-Medrol) 40 mg IVP Q12 [facility] Last Admin: 04/26/17 10:20 Dose: 40 mg Montelukast Sodium (Singulair) 10 mg PO HS [facility] Last Admin: 04/25/17 21:45 Dose: 10 mg Nicotine (Nicoderm Cq) 1 patch TD DAILY [facility] Last Admin: 04/26/17 10:24 Dose: 1 patch Pantoprazole Sodium (Protonix Ec Tab) 40 mg PO 0600 [facility] Last Admin: 04/26/17 05:43 Dose: 40 mg - Labs Labs: 04/25/17 06:30 04/25/17 06:30 PT 14.3 SECONDS (9.4-12.5) H 04/21/17 16:05 INR 1.25 (0.93-1.08) H 04/21/17 16:05 APTT 30.9 Seconds (25.1-36.5) 04/21/17 16:05 - Constitutional Appears: Non-toxic, No Acute Distress, Chronically Ill - Head Exam Head Exam: ATRAUMATIC, NORMOCEPHALIC - Eye Exam Eye Exam: EOMI, PERRL Pupil Exam: NORMAL ACCOMODATION, PERRL - ENT Exam ENT Exam: Mucous Membranes Moist, Normal External Ear Exam, TM's Normal Bilaterally - Neck Exam Neck Exam: Full ROM, Normal Inspection - Respiratory Exam Respiratory Exam: Decreased Breath Sounds, NORMAL BREATHING PATTERN. absent: Rales, Rhonchi, Wheezes - Cardiovascular Exam Cardiovascular Exam: Irregular Rhythm, +S1, +S2 - GI/Abdominal Exam GI & Abdominal Exam: Soft, Normal Bowel Sounds. absent: Distended, Tenderness - Extremities Exam Extremities Exam: Full ROM, Normal Inspection - Neurological Exam Neurological Exam: Alert, Awake, CN II-XII Intact, Oriented x3 - Psychiatric Exam Psychiatric exam: Normal Affect, Normal Mood - Skin Skin Exam: Intact, Normal Color Assessment and Plan - Assessment and Plan (Free Text) Assessment: 46 yo AA male with presentation from [facility] for AMS, fevers, tachycardia, and hypoxia down to 75% Oxygen saturation. The patient was given Levaquin, Vancomycin, Doxycycline, and Meropenem. ON Meropenem and Vancomycin now. Patient improving. Cultures with no specific growth at this time. Supportive care. Known to have some compliance issue with medications in the past. Awaiting final cultures. Supportive care. Continue on Meropenem and Vancomycin for now. Cultures no growth at 5 days. Patient is currently afebrile. Leukocytosis improving and nearly normalized. Look to complete between 7 to 10 days of antibiotic therapy. For transfer back to [facility] when medical stable. Thank you for allowing me to participate in the care of the patient, we will follow with you.
[2017-04-26 18:20] VITALS: O2SAT 97
--- NOTE | 2017-04-27 00:55 | PN ---
DATE: 04/26/2017 REFERRING PHYSICIAN: Terri Hester MD. SUBJECTIVE: He is lying in the bed, head at 45 degree. Night was unremarkable. Tolerated BiPAP well. No headache. No rhinitis. No nausea, no vomiting, or diarrhea. No leg pain or leg swelling. PHYSICAL EXAMINATION: GENERAL: In no acute distress. VITAL SIGNS: Temperature 98, heart rate 54, respiratory rate 18, blood pressure 142/89, pulse ox 97% on 2 L nasal cannula. HEENT: Moist mucous membranes. Crowded airway. Mallampati score is 4. NECK: Supple. No JVD. LUNGS: Fair airflow. No rhonchi. HEART: S1 and S2. ABDOMEN: Soft, nontender. No organomegaly. EXTREMITIES: Not much edema. NEUROLOGIC: Awake and alert. Follows simple command. MEDICATIONS: He is on aspirin 81 mg daily, Brovana inhaled twice a day, Colace 100 mg three times a day, doxycycline 100 mg twice a day, DuoNeb q. 4 hours, Lasix 20 mg twice a day, Lipitor 40 mg daily, Lovenox 40 mg subcutaneously daily, meropenem 1 g IV q. 8 hours, methadone 50 mg daily, Nicoderm patch daily, Protonix 40 mg daily, Singulair 10 mg daily, Solu-Medrol 20 mg q. 12 hours, Tylenol p.r.n., Xanax 0.25 mg at bedtime p.r.n. LABORATORY DATA: Reviewed. No new lab is available since yesterday. Microbiology: Blood cultures have been negative. IMPRESSION AND PLAN: Status post respiratory failure, requiring noninvasive ventilation, with CO2 retention and hypoxemia. Has systemic lupus erythematosus, hypertension, chronic lung disease, pulmonary infiltrate, right lower lobe cavitary lesion, methadone dependent, recently methadone decreased to 50 mg and doing okay. Decreased Solu-Medrol 20 mg q. 12 hours, antibiotics as per Infectious Disease, aspiration precaution, encourage BiPAP use, gastric prophylaxis, deep vein thrombosis prophylaxis. Will need followup x-ray to show the stability of pulmonary infiltrate. Thank you and we will follow with you. Farheen Guillen MD [facility] # [id number]
[2017-04-27] MEDS: Albuterol-Ipratrop 3 mg / 0.5 (3 ml) UD IH SCH ×4 (02:49→11:31)
[2017-04-27] MEDS: Meropenem 500 MG in Sodium Chloride 0.9% 50 ML IVPB SCH ×2 (05:55→13:00)
[2017-04-27] MEDS: Pantoprazole 40 mg EC Tab PO SCH (05:58)
--- NOTE | 2017-04-27 06:55 | CP.PCM.PN ---
Subjective - Date & Time of Evaluation Date of Evaluation: 04/27/17 Time of Evaluation: 06:05 - Subjective Subjective: Seen and examined by me and Dr. Luque Reason for consultation and follow up: bradycardia, methadone dependent, hypertension, Lupus,chronic lung disease, on BIPAP Lying in bed, no distress, Denies shortness of breath,denies chest pain, wanted to increase methadone dose Objective - Vital Signs/Intake and Output Vital Signs (last 24 hours): Temp Pulse Resp BP Pulse Ox 98.4 F 54 L 18 142/89 97 04/26/17 16:00 04/26/17 18:00 04/26/17 16:00 04/26/17 17:14 04/26/17 16:00 Intake and Output: 04/26/17 04/27/17 18:59 06:59 Intake Total 480 780 Output Total 1300 1550 Balance -820 -770 - Medications Medications: Current Medications Acetaminophen (Tylenol 325mg Tab) 650 mg PO Q6H PRN PRN Reason: Fever >100.4 F Last Admin: 04/27/17 05:58 Dose: 650 mg Albuterol/Ipratropium (Duoneb 3 Mg/0.5 Mg (3 Ml) Ud) 3 ml IH Q2H PRN PRN Reason: Shortness of Breath Albuterol/Ipratropium (Duoneb 3 Mg/0.5 Mg (3 Ml) Ud) 3 ml IH [id number] [facility] Last Admin: 04/27/17 02:49 Dose: Not Given Alprazolam (Xanax) 0.25 mg PO HS PRN; Protocol PRN Reason: Anxiety Stop: 04/28/17 17:28 Last Admin: 04/26/17 15:36 Dose: 0.25 mg Arformoterol Tartrate (Brovana) 15 mcg IH [id number] [facility] Last Admin: 04/26/17 19:47 Dose: Not Given Aspirin (Aspirin Chewable) 81 mg PO DAILY [facility] Last Admin: 04/26/17 10:18 Dose: 81 mg Atorvastatin Calcium (Lipitor) 40 mg PO DIN [facility] Last Admin: 04/26/17 17:14 Dose: 40 mg Docusate Sodium (Colace) 100 mg PO TID [facility] Last Admin: 04/26/17 17:14 Dose: 100 mg Doxycycline Hyclate (Doryx) 100 mg PO Q12 [facility] Last Admin: 04/26/17 21:25 Dose: 100 mg Enoxaparin Sodium (Lovenox) 40 mg SC DAILY [facility] PRN Reason: Protocol Last Admin: 04/26/17 10:18 Dose: 40 mg Furosemide (Lasix) 20 mg PO DAILY [facility] Meropenem 500 mg/ Sodium (Chloride) 50 mls @ 100 mls/hr IVPB Q8 [facility] PRN Reason: Protocol Last Admin: 04/27/17 05:55 Dose: 100 mls/hr Methadone HCl (Methadone) 50 mg PO DAILY [facility] Last Admin: 04/26/17 10:19 Dose: 50 mg Methylprednisolone (Solu-Medrol) 20 mg IVP Q12 [facility] Last Admin: 04/26/17 21:29 Dose: 20 mg Montelukast Sodium (Singulair) 10 mg PO HS [facility] Last Admin: 04/26/17 21:29 Dose: 10 mg Nicotine (Nicoderm Cq) 1 patch TD DAILY [facility] Last Admin: 04/26/17 10:24 Dose: 1 patch Pantoprazole Sodium (Protonix Ec Tab) 40 mg PO 0600 [facility] Last Admin: 04/27/17 05:58 Dose: 40 mg - Labs Labs: 04/25/17 06:30 04/25/17 06:30 PT 14.3 SECONDS (9.4-12.5) H 04/21/17 16:05 INR 1.25 (0.93-1.08) H 04/21/17 16:05 APTT 30.9 Seconds (25.1-36.5) 04/21/17 16:05 - Constitutional Appears: No Acute Distress - Head Exam Head Exam: NORMAL INSPECTION - Eye Exam Eye Exam: Normal appearance Pupil Exam: NORMAL ACCOMODATION - ENT Exam ENT Exam: Mucous Membranes Moist, Normal Exam - Respiratory Exam Respiratory Exam: Decreased Breath Sounds, Clear to Ausculation Bilateral, NORMAL BREATHING PATTERN - Cardiovascular Exam Cardiovascular Exam: Bradycardia, +S1, +S2 - GI/Abdominal Exam GI & Abdominal Exam: Soft, Normal Bowel Sounds - Extremities Exam Extremities Exam: Normal Capillary Refill, Normal Inspection - Neurological Exam Neurological Exam: Alert, Awake, Oriented x3 - Psychiatric Exam Psychiatric exam: Depressed, Flat Affect, Normal Mood - Skin Skin Exam: Dry, Intact, Normal Color, Warm Assessment and Plan - Assessment and Plan (Free Text) Assessment: Bradycardia, methadone dependent,hypertension, Lupus,chronic lung disease, on BIPAP Plan: On 24 hour Holter monitor right now due off early PM Heart rate still on high 40's when sleeping and 60's when awake or with activity Blood pressure stable For ECHO as ordered Continue current medications-ASA 81 mg daily, Lasix 20 mg daily,Lipitor 40 mg daily. Will follow up Plan and treatment discussed with Dr. Luque
[2017-04-27] MEDS: Arformoterol 15 mcg/2 ml Inh Sol IH SCH (07:22)
[2017-04-27] MEDS: MethylPREDNISolone 40 mg Vial IVP SCH (09:10)
[2017-04-27 09:11] LABS: BASO # 0.01 K/mm3 (0.0-2.0); BASO % 0.1 % (0.0-3.0); EOS # 0.1 (0.0-0.7); EOS % 0.4 % (1.5-5.0); GRAN # 12.56 (1.4-6.5); GRAN % 74.9 % (50.0-68.0); HEMOGLOBIN 16.2 g/dL (14.0-18.0); LYMPH % 17.6 % (22.0-35.0); MEAN CELL VOLUME 92.1 fl (80.0-105.0); MEAN CORPUSCULAR HEMOGLOBIN 30.6 pg (25.0-35.0); MEAN CORPUSCULAR HGB CONC 33.3 g/dl (31.0-37.0); MEAN PLATELET VOLUME 12.3 fl (7.0-11.0); MONO # 1.2 (0.1-0.6); RBC 5.29 10^6/uL (3.5-6.1); RED CELL DISTRIBUTION WIDTH 15.3 % (11.5-14.5); WHITE BLOOD COUNT 16.8 10^3/ul (4.5-11.0)
[2017-04-27] MEDS: Enoxaparin 40 mg Syringe SC SCH (09:11)
[2017-04-27 09:14] VITALS: BP 150/94; RESP 20; TEMP 98.1
[2017-04-27 09:22] LABS: ALB/GLOB RATIO 0.9 (1.1-1.8); ALBUMIN 3.8 g/dL (3.0-4.8); ALT/SGPT 32 U/L (7-56); AST/SGOT 20 U/L (17-59); BLOOD UREA NITROGEN 29 mg/dL (7-21); GFR AFRICAN-AMERICAN > 60; GFR NON-AFRICAN AMERICAN > 60
[2017-04-27] MEDS ORDERED: METHADONE PO SCH (10:15)
[2017-04-27] MEDS ORDERED: MethylPREDNISolone 40 mg Vial IVP SCH (15:24)
[2017-04-27 15:35] VITALS: PULSE 48
--- NOTE | 2017-04-27 18:45 | CP.PCM.PN ---
Subjective - Date & Time of Evaluation Date of Evaluation: 04/27/17 Time of Evaluation: 13:00 - Subjective Subjective: Infectious Disease Follow Up: April 27, 2017 46 yo AA male who is a resident at [facility] ([facility]) sent to [facility] [place] for fevers up to 102.7 F, tachycardia, hypoxia, and AMS. The patient has an extensive past medical history that includes chronic obstructive lung disease, chronic pain syndrome, methadone dependence, diabetes mellitus, systemic lupus erythematous, and depression. The patient himself denies any medical symptoms now but states chills and weakness at [facility]. He also mentions occassional bloating of the abdomen for the past week but no increased flatulence or eructation. He states his appetite in good. Patient is wheelchair bound normally. He denies any burning on urination or increased urinary frequency. He denies shortness of breath. Leukocytosis is improving and has nearly normalized. Still with leukocytosis but nearly improved. No fevers. Cultures remain negative. Objective - Vital Signs/Intake and Output Vital Signs (last 24 hours): Temp Pulse Resp BP Pulse Ox 98.1 F 48 L 20 150/94 H 97 04/27/17 09:13 04/27/17 10:00 04/27/17 09:13 04/27/17 09:13 04/27/17 09:13 Intake and Output: 04/27/17 04/27/17 06:59 18:59 Intake Total 1030 360 Output Total 1550 550 Balance -520 -190 - Labs Labs: 04/27/17 09:00 04/27/17 09:00 PT 14.3 SECONDS (9.4-12.5) H 04/21/17 16:05 INR 1.25 (0.93-1.08) H 04/21/17 16:05 APTT 30.9 Seconds (25.1-36.5) 04/21/17 16:05 - Constitutional Appears: Non-toxic, No Acute Distress, Chronically Ill - Head Exam Head Exam: ATRAUMATIC, NORMOCEPHALIC - Eye Exam Eye Exam: EOMI, PERRL Pupil Exam: NORMAL ACCOMODATION, PERRL - ENT Exam ENT Exam: Mucous Membranes Moist, Normal External Ear Exam, TM's Normal Bilaterally - Neck Exam Neck Exam: Full ROM, Normal Inspection - Respiratory Exam Respiratory Exam: Decreased Breath Sounds, NORMAL BREATHING PATTERN. absent: Rales, Rhonchi, Wheezes - Cardiovascular Exam Cardiovascular Exam: Irregular Rhythm, +S1, +S2 - GI/Abdominal Exam GI & Abdominal Exam: Soft, Normal Bowel Sounds. absent: Distended, Tenderness - Extremities Exam Extremities Exam: Full ROM, Normal Inspection - Neurological Exam Neurological Exam: Alert, Awake, CN II-XII Intact, Oriented x3 - Psychiatric Exam Psychiatric exam: Normal Affect, Normal Mood - Skin Skin Exam: Intact, Normal Color Assessment and Plan - Assessment and Plan (Free Text) Assessment: 46 yo AA male with presentation from [facility] for AMS, fevers, tachycardia, and hypoxia down to 75% Oxygen saturation. The patient was given Levaquin, Vancomycin, Doxycycline, and Meropenem. ON Meropenem and Vancomycin now. Patient improving. Cultures with no specific growth at this time. Supportive care. Known to have some compliance issue with medications in the past. Awaiting final cultures. Supportive care. Continue on Meropenem and Vancomycin for now. Cultures no growth at 5 days. Patient is currently afebrile. Leukocytosis improving and nearly normalized. Look to complete between 7 to 10 days total of antibiotic therapy. For transfer back to [facility] when medically stable. May be going back today. Thank you for allowing me to participate in the care of the patient, we will follow with you.
--- NOTE | 2017-04-28 10:01 | CARD ---
APPROVED REPORT Reason for Test: BRADYCARDIA Hookup date: 2017-04-26 Scan date: 2017-04-27 Recording time: 23 HR 59 MIN Heart Rate Data Total Beats: [id number] Min HR: 38 BPM at 9:45PM Avg HR: 53 BPM Max HR: 87 BPM at 5:51PM Supraventricular Ectopy Total VE Beats: 181 (0.4%) Atrial Pairs: 1 Events Longest R-R: 1.7 sec at 8:10 PM Single PAC's: 176 Bi/Trigeminy: 0/3 Beats Conclusion SINUS RHYTHM / SINUS BRADYCARDIA MINIMUM HR 38 BPM MAXIMUM HR 87 BPM VERY RARE APC'S, ISOLATED PAIRED THERE WERE NO DIARY ENTRIES.
--- NOTE | 2017-04-28 10:08 | CARD ---
APPROVED REPORT EXAM: Two-dimensional and M-mode echocardiogram with Doppler and color Doppler. INDICATION BRADYCARDIA 2D DIMENSIONS Left Atrium (2D)3.2 (1.6-4.0cm)IVSd1.3 (0.7-1.1cm) LVDd4.0 (3.9-5.9cm)PWd1.3 (0.7-1.1cm) LVDs3.0 (2.5-4.0cm)FS (%) 23.5 % LVEF (%)47.6 (>50%) M-Mode DIMENSIONS Aortic Root3.00 (2.2-3.7cm)Aortic Cusp Exc.2.00 (1.5-2.0cm) Aortic Valve AoV Peak Shdobyla761.0cm/Zack Peak GR.4mmHg Mitral Valve MV E Jzkvkphz29.9cm/sMV A Jzlxvvab90.4cm/sE/A ratio0.5 TDI E/Lateral E'0.0E/Medial E'0.0 Tricuspid Valve TR Peak Hghyuqyf308cw/sRAP [id number] Peak Gr.39mmHg [id number] LEFT VENTRICLE The left ventricle is normal size. There is mild concentric left ventricular hypertrophy. Left ventricle systolic function is low normal.EF-50% There is normal LV segmental wall motion. Transmitral Doppler flow pattern is Grade III-reversible restrictive diastolic dysfunction. No left ventricle thrombus noted on this study. There is no ventricular septal defect visualized. There is no left ventricular aneurysm. There is no mass noted in the left ventricle. RIGHT VENTRICLE The right ventricle is mildly to moderately dilated. There is normal right ventricular wall thickness. Systolic function of RV is mildly to moderately reduced. ATRIA The left atrium size is normal. The right atrium is borderline dilated. The interatrial septum is intact with no evidence for an atrial septal defect. AORTIC VALVE The aortic valve is thickened but opens well. No aortic regurgitation is present. There is no aortic valvular stenosis. There is no aortic valvular vegetation. MITRAL VALVE The mitral valve is thickened but opens well. Mitral regurgitation is trace. There is no mitral valve stenosis. There is no evidence of mitral valve prolapse. TRICUSPID VALVE The tricuspid valve leaflets are thickened , but open well. There is mild tricuspid regurgitation.RVSP-49 mmof hg There is mild pulmonary hypertension. There is no tricuspid valve stenosis. There is no tricuspid valve prolapse or vegetation. PULMONIC VALVE The pulmonic valve is not well visualized. GREAT VESSELS The aortic root is normal in size. The ascending aorta is normal in size. The pulmonary artery is normal. The IVC is normal in size and collapses >50% with inspiration. PERICARDIAL EFFUSION There is no pleural effusion. There is no pericardial effusion. <Conclusion> The left ventricle is normal size. There is mild concentric left ventricular hypertrophy. Left ventricle systolic function is low normal.EF-50% The right ventricle is mildly to moderately dilated. Systolic function of RV is mildly to moderately reduced. Mitral regurgitation is trace. There is mild tricuspid regurgitation.RVSP-49 mmof hg There is mild pulmonary hypertension. The IVC is normal in size and collapses >50% with inspiration. There is no pericardial effusion. No Vegetation or thrombus noted.
--- NOTE | 2017-04-28 11:35 | PQF RESP ---
04/28/17 Dr. Guillen, Respiratory failure with hypoxia and hypercapnia is documented on ED notes , your consult and progress of 04/22 through 04/26, with O2 sat of 75% on admission treated with BIPAP. Please specify whether failure is acute/chronic. Thank you. Clarification of your documentation is requested to better reflect the severity of illness and intensity of treatment of your patient. Indicators present [] Use of Home Oxygen [] Respiratory rate > 28 or <8/min (Labored respirations) [] PCO2 > 50 mm Hg or (Hypercapnia) (somnolence) [] PaO2 < 60 mm Hg or Hypoxemia (confusion) [] ABG blood gas pH < 7.35 [] SpO2 < 90% sat on Room Air [] Cyanosis [] Unable to Speak in Full Sentences [] Use of Accessory Muscles / Tripoding [] Wheezing [] Other: [] Location in the medical record that reflects the above clinical findings: [] Treatment Provided: [] PHYSICIAN'S RESPONSE Based on your medical judgment of the clinical indicators outlined above, are you treating this patient for a known or suspected: [] Acute Respiratory Failure (hypoxia or hypercapnia) [] Chronic Respiratory Failure (hypoxia or hypercapnia) [] Acute on Chronic Respiratory Failure (hypoxia or hypercapnia) [] Hypoxemia please specify ACUTE, CHRONIC or ACUTE on CHRONIC [] Other []_ [] If unable to determine, please check the box, sign and date. Present On Admission (POA) Indicator: [] Present at the time of admission [] Not present at the time of admission [] Clinically Undetermined In responding to this query, please exercise your independent professional judgment. The fact that a question is asked does not imply that any particular answer is desired or expected. Thank you for your clarification on this documentation. 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 In theory, respiratory failure is defined as a Pa02 value of <60 mm/Hg or a PaC02 of >50 mm/Hg. However, these values may be affected by renal compensation. Respiratory failure may be acute or chronic. While acute respiratory failure is characterized by life-threatening derangement in arterial blood gases and acid-base balance, the manifestations of chronic respiratory failure are less dramatic and may not be as readily apparent. Classifications: Respiratory failure may be classified as hypoxemic (usually characterized by Pa02 of <60 mm/Hg) or hypercapnic (usually characterized by PaC02 >50 mm/Hg) and either may be acute or chronic. Chronic hypercapnic respiratory failure develops over time and allows for renal compensation and an increase in bicarbonate concentration; therefore the pH is usually only slightly decreased. The distinction between acute and chronic hypoxemic respiratory failure cannot readily be made on the basis of ABGs; the clinical markers of chronic hypoxemia, such as polythycemia or cor pulmonale suggest a long standing disorder (chronic hypoxemic respiratory failure). Clinical Indicators: dyspnea at rest or "chronic" dyspnea, concomitant conditions such as polycythemia or cor pulmonale, requirement for continuous oxygen support, forced expiratory volume in one second (FEV1) of 49 or less, pursed lip breathing, "barrel" chest, hyperinflation by CXR, muscle wasting, malnutrition/obesity, poor exercise capacity, peripheral edema, description as a "blue bloater" (usually associated with chronic, obstructive bronchitis) or "pink puffer" (usually associated with emphysema) Risks: Chronic Hypoxemic Respiratory Failure - COPD, pulmonary fibrosis, asthma , pulmonary arterial hypertension, granulomatous lung diseases, congenital heart disease, bronchiectasis, kyphoscoliosis, obesity; Chronic Hypercapnic Respiratory Failure - COPD, severe asthma, myasthenia gravis, polyneuropathy, polio, head and cervical spine injuries, obesity hypoventilation syndrome. Treatment: supplemental oxygen, bronchodilators, corticosteroids, adequate nutrition, lung transplant References: Am. J. Respir. Crit. Care Med. "Global Strategy for the Diagnosis, Management and Prevention of COPD: GOLD Exectuive Summary," Lilliam Powers Anzueto - 2007; Proceedings of the [place] [employer] "Mechanisms and Measurements of Dyspnea in COPD," Ronald - 2006; WebMD; Respiratory Failure, Callum Khan MD - 08/2005; Mak's Principles of Internal Medicine, 17th edition. Acute Respiratory Failure Acute Respiratory Failure indicators include: ~Respirations >28 ~Air hunger ~Use of accessory muscles of respiration ~Inability to speak in full sentences Cyanosis ~Pulse ox <90% RA or <95% on O2 pH <7.35 or >7.45 ~pO2 < 60 mm Hg (or 10mm below COPD patient's baseline) ~pCO2 >50mm Hg (or 10mm above COPD patient's baseline) "Respiratory failure may be assigned as a principal diagnosis when it is the condition established after study to be chiefly responsible for occasioning admission to the hospital. The fact that the respiratory failure was managed without intubation and mechanical ventilation does not preclude its use." [facility], 3rd Qtr., 1988, p. 7 MTDD
--- NOTE | 2017-04-28 11:35 | DS ---
The patient is a 46-year-old male, was admitted in [facility] on 04/21/2017, discharged home on 04/27/2017. CHIEF COMPLAINT: Coughing, shortness of breath. HISTORY OF PRESENT ILLNESS: Mr. Larry Lucero is a 46-year-old male with multiple medical problems, history of COPD, asthma, diabetes mellitus, rheumatoid arthritis, hypertension, depression, lupus, heavy smoker came to the Emergency Room via EMS from [facility], is long-term resident there with fever of 102.3, heart rate 131, pulse oximetry 75% on oxygen saturation. The patient was lethargic. We admitted the patient, called [facility] pricing consultant and ID, got antibiotics. Chest x-ray done. CAT scan of the head done. The patient was seen by Dr. Luque for bradycardia; in sleep, heart rate goes to 40, held a couple of days methadone, but the patient was very anxious and becoming crazy. Then, we gave him a couple of days of 50 mg, but he wants his full dose of 95. According to Dr. Luque, heart rate has no relation with methadone. Then, we resumed the methadone. We do not want the patient to get withdrawals. Now, the patient is getting cleared by ID for IV antibiotics in the long term 3 more days, seen by Dr. Luque who did Holter monitoring. If the patient do not need any cardiac workup right now and we cannot discharge after clearing from Cardiology, follow up as outpatient. PAST MEDICAL HISTORY: COPD; asthma; diabetes mellitus; rheumatoid arthritis; hypertension; depression; lupus; noncompliant; heavy smoker; methadone dependency; history of substance abuse; history of leukocytosis; renal insufficiency, came with altered mental status, hypercapnia, FAMILY HISTORY: Father and mother, noncontributory. HABITS: History of heavy smoking and drug abuse. Alcohol abuse: Yes. ALLERGIES: THE PATIENT IS ALLERGIC WITH PENICILLIN. HOME MEDICATIONS: Reviewed by me. REVIEW OF SYSTEMS: Patient seen and examined on the bedside, looking a little bit more comfortable. No nausea, vomiting, diarrhea. No hematuria or hematochezia. No swelling of the leg. No chest pain, no palpitation. Shortness of breath is getting better. Still has bradycardia. PHYSICAL EXAMINATION VITAL SIGNS: Temperature 98.3, pulse 58, respiratory rate 19, blood pressure 130/70, pulse oximetry 97. HEENT: Head normocephalic and atraumatic. Eyes, PERRLA. Extraocular muscles intact. Conjunctivae clear. Nose is patent. Mucous membrane moist. NECK: Supple. No carotid bruits. No JVD or thyromegaly. CHEST: Bilaterally symmetrical. HEART: S1, S2 positive. LUNGS: Clear to auscultation. ABDOMEN: Soft. Bowel sounds present. No organomegaly. EXTREMITIES: No edema. No cyanosis. NEUROLOGIC: Patient is awake and alert. Moving all 4 extremities. No focal deficit. MEDICATIONS: Tylenol, DuoNeb, Xanax, Brovana, aspirin, Lipitor, Colace, Lovenox, Lasix, doxycycline, meropenem, methadone, Solu-Medrol, NicoDerm patch, pantoprazole. LABORATORY DATA: White blood cell 11.5, hemoglobin 15.5, hematocrit 47.9, platelets 78,000. Sodium 143, potassium 5.1, BUN 38, creatinine 1, glucose 99. ASSESSMENT AND PLAN: Mr. Larry Lucero is a 46-year-old male with leukocytosis, thrombocytopenia, hyperkalemia, hypochloremia, has bradycardia, rheumatoid arthritis, chronic obstructive pulmonary disease, asthma, lupus. Terri Hester MD MTDD
== END 2017-04-27 15:32 | DRG 871 ==
LOC: ED 15:31 → ERH 17:11 → CCU 18:45 → 3RNO 04-23 16:08
PROVIDERS: ADMIT Internal Medicine; ATTEND Internal Medicine
PROC: 5A09457 Assistance with Respiratory Ventilation, 24-96 Consecutive Hours, Continuous Positive Airway Pressure (ICD-10-PCS; principal; 2017-04-21)
PROC: 3E03329 Introduction of Other Anti-infective into Peripheral Vein, Percutaneous Approach (ICD-10-PCS; 2017-04-21)
PROC: 3E0F73Z Introduction of Anti-inflammatory into Respiratory Tract, Via Natural or Artificial Opening (ICD-10-PCS; 2017-04-21)
DX: A41.9 Sepsis, unspecified organism (principal); J18.9 Pneumonia, unspecified organism; J96.01 Acute respiratory failure with hypoxia; J96.02 Acute respiratory failure with hypercapnia; D69.6 Thrombocytopenia, unspecified; E87.2 Acidosis; E11.65 Type 2 diabetes mellitus with hyperglycemia; E83.39 Other disorders of phosphorus metabolism; E87.0 Hyperosmolality and hypernatremia; E87.8 Other disorders of electrolyte and fluid balance, not elsewhere classified; J44.0 Chronic obstructive pulmonary disease with (acute) lower respiratory infection; F11.20 Opioid dependence, uncomplicated; M32.9 Systemic lupus erythematosus, unspecified; E86.0 Dehydration; R65.20 Severe sepsis without septic shock; D64.9 Anemia, unspecified; E05.90 Thyrotoxicosis, unspecified without thyrotoxic crisis or storm; E87.5 Hyperkalemia; F17.210 Nicotine dependence, cigarettes, uncomplicated; G47.30 Sleep apnea, unspecified; G89.4 Chronic pain syndrome; I10 Essential (primary) hypertension; M06.9 Rheumatoid arthritis, unspecified; M17.11 Unilateral primary osteoarthritis, right knee; N28.9 Disorder of kidney and ureter, unspecified; Y95 Nosocomial condition; Z91.14 Patient's other noncompliance with medication regimen; Z91.19 Patient's noncompliance with other medical treatment and regimen; Z99.3 Dependence on wheelchair; F10.10 Alcohol abuse, uncomplicated; Z88.0 Allergy status to penicillin; Z87.892 Personal history of anaphylaxis

== ENCOUNTER 2018-05-08 19:18 | Emergency (ER) | payer MEDICARE, MEDICAID ==
[2018-05-08 19:19] VITALS: BMI 37.0
[2018-05-08 19:34] VITALS: RESP 18
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
[2018-05-08 22:31] VITALS: BP 114/72; PULSE 95; TEMP 98.2; O2SAT 98
== END 2018-05-08 22:05 | disposition left against medical advice (07) ==
LOC: ED 19:18
DX: R45.1 Restlessness and agitation (principal); E78.5 Hyperlipidemia, unspecified; I10 Essential (primary) hypertension; M32.9 Systemic lupus erythematosus, unspecified; Z99.81 Dependence on supplemental oxygen; Z91.19 Patient's noncompliance with other medical treatment and regimen; Z88.0 Allergy status to penicillin; J45.909 Unspecified asthma, uncomplicated